=== PATIENT | female | born 1970 | race Caucasian/White ===

== ENCOUNTER → 2023-06-07 | Outpatient (CLI) | payer OTHER, SELFPAY ==
--- NOTE | 2023-06-07 12:20 | RAD_ITS ---
INDICATION: PAIN IN BOTH KNEES EXAMINATION/TECHNIQUE: X-RAY - LEFT XR Knee Complete 4 Views or More 4 VIEWS COMPARISON: None. FINDINGS: SOFT TISSUES: No soft tissue swelling or gas. Chondrocalcinosis. BONES/JOINTS: No acute fracture. Joint spaces anatomically aligned with moderate tricompartmental degenerative changes. No sclerotic or destructive changes observed. RAD/Knee 4 or More Views IMPRESSION: Chondrocalcinosis with degenerative changes. Electronically Signed: Kenyon Pittman MD at 0:38 EDT ,
--- NOTE | 2023-06-07 12:30 | RAD_ITS ---
STUDY: X-RAY - RIGHT KNEE REASON FOR EXAM: Female, 53 years old. PAIN IN BOTH KNEES TECHNIQUE: 4 view(s) of the knee. COMPARISON: None. FINDINGS: Normal visualized distal femur. Normal visualized proximal tibia and fibula. Normal proximal tibiofibular articulation. There is no demonstrated fracture. There is mild degenerative arthrosis of the medial femorotibial compartment. Normal lateral femorotibial compartment. There is mild degenerative arthrosis of the patellofemoral articulation. The soft tissue structures are unremarkable. RAD/Knee 4 or More Views IMPRESSION: Degenerative arthrosis. Electronically Signed: Lew Rodriguez MD at 23:49 EDT ,
== END | disposition home or self-care (01) ==
LOC: RAD 12:16
PROVIDERS: PCP Family Medicine; Visit Provider Family Medicine
DX: M25.561 Pain in right knee (principal); M25.562 Pain in left knee
CPT/HCPCS: 73564

== ENCOUNTER → 2023-12-13 | Outpatient (CLI) | payer OTHER, SELFPAY ==
--- OUTSIDE RECORDS SUMMARY | 2023-12-13 08:06 | XMS RPT_ITS | CCD ---
Author Name Unknown Address [address] [place] [address] Organization [facility] Care Team Providers Care Psychosocial Rehabilitation Counselor Name Role Phone Autumn Rosas Unavailable Unavailable Autumn Rosas Unavailable Unavailable Autumn Rosas Unavailable Unavailable Autumn Rosas Unavailable Unavailable Autumn Rosas Unavailable Unavailable Autumn Rosas Unavailable Unavailable ISAIAS TORRES Attending Unavailable AUTUMN ROSAS Primary Care Unavailable MOOKIE ARGUETA Attending Unavailable Autumn Rosas Primary Care Provider Jenaro Zimmerman Unavailable SYSTEM, PROVIDER NOT IN Attending Unavaila ble SYSTEM, PROVIDER NOT IN Referring Unavaila ble AUTUMN ROSAS Primary Care Unavailable SYSTEM, PROVIDER NOT IN Attending Unavaila ble SYSTEM, PROVIDER NOT IN Referring Unavaila ble AUTUMN ROSAS Primary Care Unavailable SYSTEM, PROVIDER NOT IN Attending Unavaila ble SYSTEM, PROVIDER NOT IN Referring Unavaila ble AUTUMN ROSAS Primary Care Unavailable SYSTEM, PROVIDER NOT IN Attending Unavaila ble SYSTEM, PROVIDER NOT IN Referring Unavaila ble AUTUMN ROSAS Primary Care Unavailable SYSTEM, PROVIDER NOT IN Attending Unavaila ble SYSTEM, PROVIDER NOT IN Referring Unavaila ble AUTUMN ROSAS Primary Care Unavailable Jl Mansi Unavailable Autumn Rosas Primary Care Provider Socorro IZQUIERDO, Shila Unavailable Unavailable MAMMOGRAPHY-CECY SELF-REQUESTED Attending Unavailable [facility] OTHER Referring Unavail able Socorro IZQUIERDO, Shila Unavailable Unavailable Autumn Rosas MD Primary Care Provider AUTUMN ROSAS Referring Unavailable MIKA ROY Attending Unavailable AUTUMN ROSAS Primary Care Unavailable AUTUMN ROSAS Referring Unavailable MIKA ROY Attending Unavailable AUTUMN ROSAS Primary Care Unavailable MIKA ROY Admitting Unavailable MIKA ROY Attending Unavailable MIKA ROY Referring Unavailable AUTUMN ROSAS Primary Care Unavailable MIKA ROY Attending Unavailable AUTUMN ROSAS Primary Care Unavailable AUTUMN ROSAS Referring Unavailable Ralph, Dr. Autumn Horner Attending Unavailjaclyn Rosas, Dr. Autumn Horner Primary Care Unavailjaclyn Quintanilla RN, Shila Unavailable Unavailable Autumn Rosas MD Primary Care Provider [facility] Other Unavailable [phone] SINDY CAPUTO, KRISTEN Hein Consulting Unavailable RALPH CAPUTO, [phone] AUTUMN Primary Care Unavailable DUSTIN MORENO Admitting Unavailable STINEMJINA, DUSTIN Kumar Attending Unavailable SINDY CAPUTO, KRISTEN Hein Consulting Unavailable TIFFANIE, DUSTIN Kumar Consulting Unavailable DUSTIN MORENO Consulting Unavailable RALPH CAPUTO, [phone] AUTUMN Consulting Unavailable RALPH CAPUTO, DR LEYVA Consulting Unavailable Autumn Rosas MD Primary Care Provider Erasmo CNPJenaro Unavailable Autumn Rosas MD Primary Care Provider SYLWIA SALINAS Admitting Unavailable SYLWIA SALINAS Referring Unavailable MEGAN HIDALGO Attending Unavailable AUTUMN ROSAS Primary Care Unavailable AUTUMN ROSAS Primary Care Unavailable SYLWIA SALINAS Admitting Unavailable SYLWIA SALINAS Referring Unavailable MEGAN HIDALGO Attending Unavailable AUTUMN ROSAS Primary Care Unavailable ARTURSYLWIA Admitting Unavailable SYLWIA SALINAS Referring Unavailable MEGAN HIDALGO Attending Unavailable Allergies Allergy Classification Reported Allergen(s) Allergy Type Date of Onset Reaction(s) Facility (1 source) acetaminophen / HYDROcodone; Translations: [Vicodin] Drug Allergy [facility] Repository (11 sources) Acetaminophen / HYDROcodone; Translations: [HYDROCODONE-ACET AMINOPHEN] Drug Allergy 0 Nausea and Vomiting [facility] (1 source) Codeine Drug Allergy 0 Nausea and Vomiting [facility] (5 sources) Latex; Translations: [LATEX] Propensity to adverse reactions to drug 2 Rash [facility] Medications Current Medications Medication Drug Class(es) Dates Sig (Normalized) Sig (Original) amLODIPine 10 mg oral tablet (11 sources) Dihydropyridine Calcium Channel Agnes take 1 tablet by mouth once daily amLODIPine (NORVASC) 10 MG tablet Take 1 (one) tablet (10 mg total) by mouth daily . 0 Active Completed/Discontinued Medications Medication Drug Class(es) Dates Sig (Normalized) Sig (Original) EPINEPHrine 0.01 mg/ml / lidocaine hydrochloride 10 mg/ml injectable solution (1 source) Antiarrhythmic, alpha-Adrenergic Agonist, beta-Adrenergic Agonist, Catecholamine, Amide Local Anesthetic Start: 11-10-2022 End: 11-10-2022 lidocaine-epinephr ine 1%-1:[id number] injection erythromycin 0.005 mg/mg ophthalmic ointment (1 source) Macrolide, Macrolide Antimicrobial Start: 04-05-2020 End: 04-25-2022 erythromycin ophthalmic ointment Use 1 application in both eyes four times daily. 0 04/05/2020 04/25/2022 Discontinued (Course of therapy completed) Problems Active Problems Problem Classification Problem Date Documented Da te Episodic/Chronic Blindness and vision defects (4 sources) Bilateral hyperopia of eyes; Translations: [Hypermetropia, bilateral] Onset: 04-08-2015 Episodic Genitourinary symptoms and ill-defined conditions (12 sources) Urinary incontinence; Translations: [Unspecified urinary incontinence] Onset: 06-11-2023 06-11-2023 Chronic Other and unspecified benign neoplasm (1 source) Benign neoplasm of skin of left upper eyelid; Translations: [Other benign neoplasm of skin of left upper eyelid, including canthus] Episodic Other and unspecified benign neoplasm (4 sources) Benign neoplasm of face; Translations: [Melanocytic nevi of unspecified part of face] Episodic Other and unspecified benign neoplasm (2 sources) Melanocytic nevi of unspecified part of face; Translations: [Melanocytic nevi of unspecified part of face] Onset: 11-10-2022 Episodic Other connective tissue disease (2 sources) Pain in right foot; Translations: [PAIN IN RIGHT FOOT] Onset: 05-31-2023 Episodic Other connective tissue disease (1 source) Enthesopathy, unspecified; Translations: [ENTHESOPATHY UNSPECIFIED] Onset: 06-04-2023 Episodic Other eye disorders (1 source) Bilateral vitreous floaters; Translations: [Other vitreous opacities, bilateral] Chronic Other lower respiratory disease (4 sources) Dyspnea, unspecified; Translations: [Dyspnea, unspecified] Onset: 01-19-2023 Episodic Other screening for suspected conditions (not mental disorders or infectious disease) (8 sources) Patient encounter status; Translations: [Encounter for screening mammogram for malignant neoplasm of breast] Onset: 05-26-2020 Episodic Other skin disorders (3 sources) Skin tag; Translations: [Other hypertrophic disorders of the skin] Episodic Other skin disorders (2 sources) Other hypertrophic disorders of the skin; Translations: [Other hypertrophic disorders of the skin] Onset: 11-10-2022 Episodic Past or Other Problems Problem Classification Problem Date Documented Da te Episodic/Chronic Mood disorders (6 sources) Mood disorders Onset: 01-18-2021 Resolved: 01-18-2021 01-18-2021 Results Test Name Value Interpretation Reference Range Facil ity Vital Signs Date Time Vital Sign Value Performing Clinician Faci lity 11-20-2022 11:46-0500 Body height 170.2 cm Mika Roy DO Work Phone: [employer] 11-20-2022 11:46-0500 Body temperature 98.4 [degF] Mika Roy DO Work Phone: [employer] 11-10-2022 13:06-0500 Diastolic blood pressure 69 mm[Hg] Mika Roy DO Work Phone: [employer] 11-10-2022 13:06-0500 Heart rate 79 /min Mika Statonac DO Work Phone: [employer] 11-10-2022 13:06-0500 Respiratory rate 19 /min Mika Roy DO Work Phone: [employer] [facility] 11-10-2022 13:06-0500 SaO2% (BldA) [Mass fraction] 99 % Mika Roy DO Work Phone: [employer] [facility] 11-10-2022 13:06-0500 Systolic blood pressure 142 mm[Hg] Mika Bodjanac DO Work Phone: [employer] 11-10-2022 12:08-0500 Body height 170.2 cm Mika Bodjanac DO Work Phone: [employer] 11-10-2022 12:08-0500 Body mass index (BMI) [Ratio] 43.85 kg/m2 Mika Bodjanac DO Work Phone: [employer] 11-10-2022 12:08-0500 Body temperature 99.9 [degF] Mika Bodjanac DO Work Phone: [employer] 11-10-2022 12:08-0500 Body weight 127.01 kg Mika Bodjanac DO Work Phone: [employer] 11-06-2022 15:09-0500 Body height 170.2 cm Mika Linderjanac DO Work Phone: [employer] 11-06-2022 15:09-0500 Body mass index (BMI) [Ratio] 44.95 kg/m2 Mika Bodjanac DO Work Phone: [employer] 11-06-2022 15:09-0500 Body temperature 97 [degF] Mika Bodjanac DO Work Phone: [employer] 11-06-2022 15:09-0500 Body weight 130.18 kg Mika Bodjanac DO Work Phone: [employer] 10-02-2022 09:46-0500 Body height 170.2 cm Mika Bodjanac DO Work Phone: [employer] 10-02-2022 09:46-0500 Body mass index (BMI) [Ratio] 44.95 kg/m2 Mika Bodjanac DO Work Phone: [employer] 10-02-2022 09:46-0500 Body temperature 98.71 [degF] Mika Bodjanac DO Work Phone: [facility] [employer] [facility] 10-02-2022 09:46-0500 Body weight 130.18 kg Mika Roy DO Work Phone: [facility] Encounters Encounter Date Encounter Type Care Provider Facility Start: 07-17-2023 End: 07-17-2023 ambulatory Sylwia Salinas CNP Work Phone: [facility] Procedures Date Procedure Procedure Detail Performing Clinician Start: 05-03-2023 Mammography Ayesha bloom PT Start: 05-02-2022 Screening mammograph y bi 2-view breast inc cad Self-Requested MammographyCandelario Work Phone: Plan of Treatment Date Care Activity Detail Author Start: 04-02-2029 Tetanus vaccination [facility] Start: 05-03-2024 Screening for malign ant neoplasm of breast Mammogram [facility] Start: 07-13-2023 End: 07-13-2023 ambulatory 07/13/2023 4:00 PM EDT [facility] [address] [place] [id number] Sylwia Salinas, [employer] [address] [place] [address] Ayesha Hidalgo, PT [facility] Start: 06-29-2023 COVID-19 Vaccine ( season) COVID-19 Vaccine ( season) [facility] Start: 06-29-2023 Influenza vaccination [facility] Start: 06-25-2023 End: 06-25-2023 ambulatory 06/25/2023 4:45 PM EDT [facility] [address] [place] [phone] Sylwia Salinas, [employer] [address] [place] [address] Ayesha Hidalgo, PT [facility] Start: 06-18-2023 End: 06-18-2023 ambulatory 06/18/2023 9:[address] [facility] [place] [address] Sylwia Salinas, [employer] [address] [place] [address] Ayesha Hidalgo, ALLISON Discharge Disposition: Home [facility] Start: 05-02-2023 End: 05-02-2024 MG Breast - bilateral Screening MAMMO SCREENING WITH ISAAC BILATERAL Imaging Routine Visit for screening mammogram Expected: 05/02/2023, Expires: 05/02/2024 [facility] Work Phone: Immunizations Immunization Date Immunization Notes Care Provider [facility] 09-18-2022 influenza virus vaccine, unspecified formulation Autumn Rosas MD Work Phone: [facility] 01-06-2022 zoster vaccine, unspecified formulation Mika Roy DO Work Phone: [facility] 10-07-2021 influenza virus vaccine, unspecified formulation Self-Requested MammographyCandelario Work Phone: [facility] Payers Date Payer Category Payer Unknown [id number] 2001 Unknown 1970 Unknown [id number] 2.16.84 [id number] 1970 Unknown [id number] 2.16.84 0.1.781423.3.579.2.71 1970 Unknown [id number] 2.16. [id number] 1970 Unknown [id number] 2.16. 840.1.780410.3.579.2.903 1970 Unknown [id number] 2.16.8 40.1.065073.3.579.2.900 1970 Unknown [id number] 2.16.8 40.1.404164.3.579.2.900 1969 Unknown [id number] 2.16.8 40.1.242970.3.579.2.900 1970 Unknown [id number] 2.16.8 40.1.172803.3.579.2.900 1969 Unknown [id number] 2.16.8 40.1.461433.3.579.2.900 1969 Unknown [id number] 2.16. 840.1.887641.3.579.2.594 1970 Unknown [id number] 2. 840.1.699135.3.579.2.594 1970 Unknown [id number] 2.16.8 40.1.407519.3.579.2.983 1970 Unknown [id number] 2.16.8 40.1.944519.3.579.2.983 1970 Unknown [id number] 2.16.8 40.1.554327.3.579.2.983 1970 Unknown [id number] 2.16.8 40.1.978535.3.579.2.983 1970 Unknown [id number] 2.16.8 40.1.951717.3.579.2.1069 1969 Unknown [id number] 2.16.8 40.1.623966.3.579.2.419 1969 Unknown [id number] 2.16 840.1.436538.3.579.2.903 1970 Unknown [id number] 2.16 840.1.658900.3.579.2.903 1970 Unknown [id number] 2.16 [id number] 1959 Unknown [id number] Social History Date Type Detail [facility] Start: 1970 Sex Assigned At Not on file [facility] Start: 04-08-2015 End: 02-08-2022 Tobacco smoking status NHIS Never smoked tobacco [facility] Start: 04-08-2015 End: 02-08-2022 Tobacco use and exposure Smokeless tobacco non-user [facility] Start: 04-25-2022 Alcohol intake Ex-drinker (finding) [facility] Start: 04-15-2022 End: 04-25-2022 Exposure to SARS-CoV-2 (event) Not sure [facility] Start: 05-02-2022 End: 05-03-2023 Alcohol intake Current drinker of alcohol (finding) [facility] Start: 07-02-2020 End: 01-18-2021 History SDOH Alcohol Frequency 2 [facility] Start: 07-02-2020 History SDOH Alcohol Comment Rare use [facility] Start: 01-18-2021 History SDOH Financial 5 [facility] Start: 01-18-2021 History SDOH Food Worry 1 [facility] Start: 07-02-2020 End: 10-18-2022 History of Social function [facility] Start: 07-02-2020 End: 10-18-2022 Alcohol Use Disorder Identification Test - Consumption [AUDIT-C] [facility] How often to you hav e a drink containing alcohol? Monthly or less [facility] Average Number of Drinks Not on file [facility] (I/We) worried nola er (my/our) food would run out before (I/we) got money to buy more. Never true [facility] Start: 04-24-2022 Gender identity Identifies as female gender (finding) [facility] Start: 04-24-2022 Sexual orientation Heterosexual (finding) [facility] Start: 10-18-2022 Alcohol intake Lifetime non-drinker (finding) [facility] Clinical Notes 04-25-2022 to 07-17-2023 Ayesha Hidalgo, PT - 07/17/2023 7:45 AM Ayesha White, PT - 06/25/2023 4:45 PM Ayesha White, PT - 06/18/2023 4:00 PM Ayesha White, PT - 06/11/2023 1:45 PM EDTDischarge Instructions Note Date & Type Note Facility 07-17-2023 History of Present illness Narrative Discharged from PT. documented in this encounter [facility] 06-25-2023 History of Present illness Narrative [facility] DAILY TREATMENT NOTE Today's Date 06/25/2023 Patient Name: Bernadette Barney Date of : 1970 Current Visit #: 3 Authorized Visits: 5 Case Name: SHERIE History: Pre-Treatment Pain Scale: 0 Symptoms: gradually improved Functional Diagnosis: 1. SHERIE (stress urinary incontinence, female) Clinical Information: Subjective: Patient reports she has had a lot of stress in her life lately so thinks that is effecting her bladder. Objective Patient progressed with standing hip exercises holding pelvic brace. She has increased her pelvic floor strength to 2+/5, but endurance is at 6 seconds. Encouraged patient to be consistent with exercise at home. Treatments: Physical Therapy Exercise Log - 06/25/23 9660 OTHER Notes SHERIE Therapeutic Exercise (57104) Intervention supine pelvic brace 2 sec and 5 sec 10 times Parameters Sitting and standing pelvic brace 5 sec 10 times Intervention Sitting hip add iso and abd BTB with pelvic brace 10 times Parameters Standing hip abd, ext and squats with pelvic brace 10 times each Additional Exercises Add more exercises? Yes Modalities Modalities Electrical Stim - Unattended Parameters Vaginal ES 15 mins PT Treatment Times Therex Total Time 30 Modalities Total Time 15 Direct Treatment Time 45 Total Treatment Time 45 Goals: Physical Therapy Ortho Goals: The patient will demonstrate good understanding of pelvic floor strengthening to reduce leakage. The patient will increase pelvic floor strength to 4+/5 within 2 months. The patient will reduce leakage by 80% within 2 months. The patient will be able to improve bladder habits to voiding every 2 hours without leakage. Patient Education: Quality of movement and Written HEP with patient demonstrated understanding. Post-Treatment Pain Scale: 0 Assessment: Patient had an expected response to treatment. Skilled Intervention demonstrated by modifications of treatment per exercise log including increased load and safety interventions per exercise log. Progress towards goals as expected. Plan for Next Visit: Treatment Visit with focus on pelvic floor strengthening. Ayesha Hidalgo PT State License, [id number] documented in this encounter [facility] 06-18-2023 History of Present illness Narrative [facility] DAILY TREATMENT NOTE Today's Date 06/18/2023 Patient Name: Bernadette Barney Date of : 1970 Current Visit #: 2 Authorized Visits: 5 Case Name: SHERIE History: Pre-Treatment Pain Scale: 0 Symptoms: gradually improved Functional Diagnosis: 1. SHERIE (stress urinary incontinence, female) Clinical Information: Subjective: Patient reports she is getting her exercises done at least once a day. She has noticed a decrease in her leakage already. Objective Patient progressed with hip accessory exercises with good understanding. Increase in pelvic floor strength to 3-/5 and endurance at 11 seconds. Good porgress with therapy. Treatments: Physical Therapy Exercise Log - 06/18/23 1604 OTHER Notes SHERIE Therapeutic Exercise (54681) Intervention supine pelvic brace 2 sec and 5 sec 10 times Parameters Sitting and standing pelvic brace 5 sec 10 times Intervention Sitting hip add iso and abd BTB with pelvic brace 10 times Additional Exercises Add more exercises? Yes Modalities Modalities Electrical Stim - Unattended Parameters Vaginal ES 15 mins PT Treatment Times Therex Total Time 30 Modalities Total Time 15 Direct Treatment Time 45 Total Treatment Time 45 Goals: Physical Therapy Ortho Goals: The patient will demonstrate good understanding of pelvic floor strengthening to reduce leakage. The patient will increase pelvic floor strength to 4+/5 within 2 months. The patient will reduce leakage by 80% within 2 months. The patient will be able to improve bladder habits to voiding every 2 hours without leakage. Patient Education: Quality of movement and Written HEP with patient demonstrated understanding. Post-Treatment Pain Scale: 0 Assessment: Patient had an expected response to treatment. Skilled Intervention demonstrated by modifications of treatment per exercise log including increased load and safety interventions per exercise log. Progress towards goals as expected. Plan for Next Visit: Treatment Visit with focus on pelvic floor strengthening. Ayesha Hidalgo PT State License, [id number] documented in this encounter [facility] 06-11-2023 History of Present illness Narrative [facility] Evaluation Today's Date 06/11/2023 Patient Name: Bernadette Barney Date of : 1970 Case Name: SHERIE Functional Diagnosis: 1. Urinary incontinence, unspecified type 2. SHERIE (stress urinary incontinence, female) Clinical Information: Subjective All subjective data collected as part of a multidisciplinary team: No Referring Diagnosis: SHERIE Patient accompanied by: unaccompanied History of Present Illness Date of Onset: 06/11/2018 Subjective History: Patient reports she sometimes has problems with incontinence. She has had a rough year and a half with her health problems. 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 She also notices she doesn't feel like she is able to empty her bladder after going to the bathroom. She gets strong urge to go to the bathroom at times. She gets up at least once a night to go to the bathroom. No pain with intercourse. Previous Treatment for this condition: No Hand dominance: right Overall rating of health: Good Pain Scale Pain location: No pain reported Reason for not responding: pain is not reason for seeking treatment Aggravating factors: coughing, sneezing, urge Personal Goals: Reduce leakage Home Environment Current Home Environment: unchanged Anticipated Home Environment at Discharge: unchanged Red Flags: None Comments: Barriers to Care: None Fall risk screening Fallen 2 or more times in the last 12 months: No Injured as a result of a fall in the last 12 months: No Pelvic Floor Surgical History: Female Organs (bladder suspension 17 years ago) Vaginal Deliveries: 2 Pelvic Floor Exam Informed consent for Internal exam: Verbal Fractionating Still Operator present: No Reported History of Physical Abuse: No External Exam Pelvic Clock exam Palpation Tenderness: 0/10 Scar tenderness: 0/10 Prolapse Position tested: supine Location: Bladder Hymenal Line: At Feeling of Falling Out or Pelvic Heaviness/Pressure: No Occurs: With Standing Internal Pelvic Floor Exam Area: vaginal Pelvic floor strength: 2- Hold time: 3 seconds Reps: 4 Quick Contractions: 4 Ability to relax: Yes Treatments: Physical Therapy Exercise Log - 06/11/23 1400 OTHER Notes SHERIE Therapeutic Exercise (90094) Intervention supine pelvic brace 2 sec and 5 sec 10 times Parameters Sitting and standing pelvic brace 5 sec 10 times Additional Exercises Add more exercises? Yes Modalities Modalities Electrical Stim - Unattended Parameters Vaginal ES 15 mins PT Treatment Times Therex Total Time 15 Direct Treatment Time 15 Total Treatment Time 45 Treatment Plan: Frequency of Visits: once per week Duration: 4 weeks Interventions: Therapeutic Exercise (04221) and Electrical Stimulation - Unattended (42713) Rehab Potential: good Goals: Physical Therapy Ortho Goals: The patient will demonstrate good understanding of pelvic floor strengthening to reduce leakage. The patient will increase pelvic floor strength to 4+/5 within 2 months. The patient will reduce leakage by 80% within 2 months. The patient will be able to improve bladder habits to voiding every 2 hours without leakage. Patient Education provided: Patient given written home program. Clinical Impression: Pt is a 53 y.o. female who presents to PT services with c/o SHERIE. Upon assessment, pt has been found with the following impairments: decreased hip ROM, decreased pelvic floor strength, and frequent urination. The documented impairments result in the following functional limitations: ADLs/IADLs, functional mobility, walking and quality of life. The pt would benefit from skilled PT services focused on the above listed impairments and limitations in order to safely progress pt to their desired level of function. Pt to be discharged from OP PT services if/when goals are met, if they fail to make progress with conservative management in PT, if their level of progress plateaus, or if they do not maintain compliance with attendance or HEP. At this time, it is my clinical judgment that services are medically necessary. Ayesha Hidalgo, PT State License, [id number] documented in this encounter [facility] 06-01-2023 Note PROCEDURE: ANKLE RIG HT COMPLETE, 05/31/2023 5:18 PM EDT CLINICAL INDICATIONS: Right ankle pain, right foot pain, symptoms for 3 months. COMPARISON: None TECHNIQUE: Right ankle 3 views FINDINGS: Dorsal and plantar calcaneal enthesopathy is seen. The bones are normal in density. Fracture, malalignment, or bone destruction is not evident. Ankle mortise intact. Os peroneum seen. Generalized soft tissue swelling seen. No ankle effusion. IMPRESSION: 1. Calcaneal enthesopathy. 2. No acute pathology identified. 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 Pt declined documented in this encounter [facility] 11-20-2022 History of Present illness Narrative Chief Complaint Chief Complaint Patient presents with Post Op Visit Post op Vitals Temp 98.4 F (36.9 C) (Temporal) Ht 1.702 m (5' 7 ) BMI 43.85 kg/m Smoking Status Never Body mass index is 43.85 kg/m . ROS General Plastics Review of Systems: Do you have any of the following: Chills, Fatigue, Fever or Night Sweats: no. Ear pain or eye discharge: no. Hearing loss or visual changes: no. Sore throat or chronic cough: no. Shortness of breath: no. Chest pain, swelling, or heart palpitations: no. Abdominal pain: no. Constipation or diarrhea: no. Heartburn or Nausea: no. Rash or skin problems: no. Breast: lumps, tenderness, discharge: no. Dizziness or numbness: no. Headaches or Migraines: no. Seizures: no. Joint pain, joint swelling or muscle weakness: no. Bruise or bleed easily: no. Any swollen lymph nodes: no. Numbness, weakness, tingling, shooting pain ; no. Fever blisters/cold sores: no. Here for post op s/p 11/10/2022 excision nevus on right upper lip and right flank. Denies pain to sites at present. The surgical sites on her right upper lip and right flank are healed. The sutures are dissolvable. Pathology report discussed: Diagnosis: A.Right upper lip lesion, Excision: -Nevus B.Right flank lesion, Excision: -Nevus After one more week, she may begin to apply a scar fading compound to the surgical sites. documented in this [facility] 11-10-2022 Note Formatting of this n ote might be different from the original. EXCISION OF SKIN LESION (INTERMEDIATE CLOSURE) - PLASTICS PROCEDURE PERFORMED BY: Mika Roy DO PROCEDURE DATE: 11/10/2022 LOCATION: Right upper lip The patient is counseled regarding the above procedure including risks, alternatives, potential complications and benefits, and is agreeable to proceed. Witnessed informed consent is obtained. The lesion to be excised is located just above the right upper lip vermilion border. This lesion is marked with a marking pen and prepared with Betadineophthalmic prep. The site is then injected with 1% lidocaine with 1:100,000 epinepherine for a total of 3 cc. Using a 15 blade scalpel the area is then resected through the skin and subcutaneous tissues 0.8 cm x 1.2 cm in size. The lesion is then sent in Formalin for pathologic specimen. Hemostasis is achieved; no cautery is needed. A layered closure of the deep and subcutaneous layers is performed with interrupted suture of 5-0 Vicryl. Skin closure is performed with 5-0 Plain Gut simple interrupted sutures. 1/4 steri-strips applied. LOCATION: Right flank The patient is counseled regarding the above procedure including risks, alternatives, potential complications and benefits, and is agreeable to proceed. Witnessed informed consent is obtained. The lesion to be excised is marked with a marking pen and prepared with Betadine ophthalmic prep. The site is then injected with 1% lidocaine with 1:100,000 epinepherine for a total of 3 cc. Using a 15 blade scalpel the area is then resected through the skin and subcutaneous tissues 0.7 cm x 1.3 cm in size. The lesion is then sent in Formalin for pathologic specimen. Hemostasis is achieved; the wound is cauterized with Bovie cautery as needed. A layered closure of the deep and subcutaneous layers is performed with interrupted suture of 5-0 Vicryl. Skin closure is performed with 5-0 Plain Gut simple interrupted sutures. 1/4 steri-strips applied. The patient tolerated the procedure well without complication. The patient is advised to call for severe pain, redness, bleeding, or purulent discharge. Pain may be treated with Tylenol or Ibuprofen as needed. [facility] 11-10-2022 Miscellaneous Notes EXCISION OF SKIN LESION (INTERMEDIATE CLOSURE) - PLASTICS PROCEDURE PERFORMED BY: Mika Roy DO PROCEDURE DATE: 11/10/2022 LOCATION: Right upper lip The patient is counseled regarding the above procedure including risks, alternatives, potential complications and benefits, and is agreeable to proceed. Witnessed informed consent is obtained. The lesion to be excised is located just above the right upper lip vermilion border. This lesion is marked with a marking pen and prepared with Betadineophthalmic prep. The site is then injected with 1% lidocaine with 1:100,000 epinepherine for a total of 3 cc. Using a 15 blade scalpel the area is then resected through the skin and subcutaneous tissues 0.8 cm x 1.2 cm in size. The lesion is then sent in Formalin for pathologic specimen. Hemostasis is achieved; no cautery is needed. A layered closure of the deep and subcutaneous layers is performed with interrupted suture of 5-0 Vicryl. Skin closure is performed with 5-0 Plain Gut simple interrupted sutures. 1/4 steri-strips applied. LOCATION: Right flank The patient is counseled regarding the above procedure including risks, alternatives, potential complications and benefits, and is agreeable to proceed. Witnessed informed consent is obtained. The lesion to be excised is marked with a marking pen and prepared with Betadine ophthalmic prep. The site is then injected with 1% lidocaine with 1:100,000 epinepherine for a total of 3 cc. Using a 15 blade scalpel the area is then resected through the skin and subcutaneous tissues 0.7 cm x 1.3 cm in size. The lesion is then sent in Formalin for pathologic specimen. Hemostasis is achieved; the wound is cauterized with Bovie cautery as needed. A layered closure of the deep and subcutaneous layers is performed with interrupted suture of 5-0 Vicryl. Skin closure is performed with 5-0 Plain Gut simple interrupted sutures. 1/4 steri-strips applied. The patient tolerated the procedure well without complication. The patient is advised to call for severe pain, redness, bleeding, or purulent discharge. Pain may be treated with Tylenol or Ibuprofen as needed. POST OPERATIVE/PROCEDURE NOTE Bernadette Barney ([id number]) SURGEON Surgeon(s) and Role: * Mika Roy DO - Primary NURSE PARALEGAL None ANESTHESIOLOGIST No anesthesia staff entered. SURGICAL STAFF Cryogenics Engineer: Hannah Roque RN; Farheen Horton RN Regional Program Manager: Linn Hickey PROCEDURE PERFORMED Procedure(s) (LRB): EXCISION LESIONS Above right upper lip (Right) REPAIR WOUND INTERMEDIATE (Right) EXCISION LESION SKIN TRUNK - Right flank (Right) REPAIR WOUND INTERMEDIATE AXILLAE TRUNK (Right) PRIMARY CLOSURE Yes ANESTHESIA (type of) Local ESTIMATED BLOOD LOSS Minimal DRAINS None BLOOD PRODUCTS None FLUIDS No intake or output data in the 24 hours ending 11/10/22 1255 PRE OPERATIVE DIAGNOSIS Multiple benign nevi of face [D22.30] Fibroepithelial polyp [L91.8] POST OPERATIVE DIAGNOSIS Post-Op Diagnosis Codes: * Multiple benign nevi of face [D22.30] * Fibroepithelial polyp [L91.8] FINDINGS No significant abnormalities CONDITION OF PATIENT Stable COMPLICATIONS None GRAFTS AND/OR IMPLANTS See OR Nursing Documentation SPECIMENS Sent to pathology ID Type Source Tests Collected by Time Destination A : A) Right Upper Lip lesion Permanent TISSUE SURGICAL PATHOLOGY REQUEST Mika Roy DO 11/10/2022 1243 B : B) Right Flank Permanent TISSUE SURGICAL PATHOLOGY REQUEST Mika Roy DO 11/10/2022 1249 Mika Roy DO November 10, 2022 12:55 PM documented in this encounter [facility] 11-10-2022 Hospital Discharge instructions Mika Roy DO - 11/10/2022 12:57 PM EST May shower. Maintain steri-strips and keep them as clean and dry as possible. Tylenol as needed for pain. Sleep on clean but old towels, as some seepage, which is normal, may occur. documented in this encounter [facility] 11-10-2022 Note Formatting of this n ote is different from the original. POST OPERATIVE/PROCEDURE NOTE Bernadette Barney ([id number]) SURGEON Surgeon(s) and Role: * Mika Roy DO - Primary NURSE PARALEGAL None ANESTHESIOLOGIST No anesthesia staff entered. SURGICAL STAFF Cryogenics Engineer: Hannah Roque RN; Farheen Horton RN Regional Program Manager: Linn Hickey PROCEDURE PERFORMED Procedure(s) (LRB): EXCISION LESIONS Above right upper lip (Right) REPAIR WOUND INTERMEDIATE (Right) EXCISION LESION SKIN TRUNK - Right flank (Right) REPAIR WOUND INTERMEDIATE AXILLAE TRUNK (Right) PRIMARY CLOSURE Yes ANESTHESIA (type of) Local ESTIMATED BLOOD LOSS Minimal DRAINS None BLOOD PRODUCTS None FLUIDS No intake or output data in the 24 hours ending 11/10/22 1255 PRE OPERATIVE DIAGNOSIS Multiple benign nevi of face [D22.30] Fibroepithelial polyp [L91.8] POST OPERATIVE DIAGNOSIS Post-Op Diagnosis Codes: * Multiple benign nevi of face [D22.30] * Fibroepithelial polyp [L91.8] FINDINGS No significant abnormalities CONDITION OF PATIENT Stable COMPLICATIONS None GRAFTS AND/OR IMPLANTS See OR Nursing Documentation SPECIMENS Sent to pathology ID Type Source Tests Collected by Time Destination A : A) Right Upper Lip lesion Permanent TISSUE SURGICAL PATHOLOGY REQUEST Mika Roy DO 11/10/2022 1243 B : B) Right Flank Permanent TISSUE SURGICAL PATHOLOGY REQUEST Mika Roy DO 11/10/2022 1249 Mika Roy DO November 10, 2022 12:55 PM [facility] 11-10-2022 Nurse Surgical operation note Or temp 67.2F, humidity 37% [facility] 11-10-2022 Nurse Note Or temp 67.2F, humidity 37% documented in this encounter [facility] 11-10-2022 Attending History and physical note I have examined the patient and reviewed the previous H&P completed on date 11/06/2022 and there are no changes. Mika Roy DO, 11/10/2022, 12:12 PM. Source Note - Mika Roy DO - 11/06/2022 3:00 PM EST Plastic Surgery H & P HPI: Ms. Barney is a 52 y.o. female. Documents updated to proceed with excision of a lesion above the right side of her lip and on her right flank. Family History Problem Relation Age of Onset Hypertension Mother Coronary Artery Disease Mother Other - Specify Mother incontinentia pigmenti Heart Disease - Other Father GI Disease Father hiatal hernia Anemia Father Heart Disease - Other Sister Heart Disease - Other Brother Diabetes Maternal Grandmother Other - Specify Daughter incontinentia pigmenti Breast Cancer Neg Hx Ovarian Cancer Neg Hx Uterine Cancer Neg Hx Social History Socioeconomic History Marital status: Tobacco Use Smoking status: Never Smokeless tobacco: Never Vaping Use Vaping Use: Never used Substance and Sexual Activity Alcohol use: Yes Comment: Rare use Drug use: Never Sexual activity: Yes 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 Last PAP: 05/2020 Para: 2 Age at of first child: 31 Age of menarche: 10 Age of menopause: n/a Patient denies hormonal therapy at this time. BREAST (GENERAL): Patient admits to self-breast exams and does them monthly. Date of patient's first mammogram: Date of most recent mammogram: 05/26/2020 Bra/Cup Size: 44D BREAST(HISTORICAL BIOPSY/THERAPY/TREATMENT) Patient denies previous breast biopsy(s). Patient denies being told they personally have breast cancer or a breast malignancy. Patient denies chemotherapy, hormone therapy or radiation therapy during the last month. Allergies as of 11/06/2022 - Reviewed 11/06/2022 Allergen Reaction Noted Vicodin [hydrocodone-acetaminophen] Nausea and Vomiting 07/02/2020 Current Outpatient Medications Medication Sig Dispense Refill amLODIPine 5 MG tablet Take 2 tablets by mouth daily. levothyroxine 125 MCG tablet Take 175 mcg by mouth daily. Per patient now taking 175 mcg once daily Multiple Vitamins-Minerals (WOMENS MULTIVITAMIN PO) Take by mouth daily. PARoxetine 20 MG tablet No current facility-administered medications for this visit. Past Medical History: Diagnosis Date Abnormal finding on breast imaging 05/26/2020 to right breast Essential hypertension, benign Hypothyroidism Past Surgical History: Procedure Laterality Date CORE BIOPSY OF THE BREAST Right 07/02/2020 Benign breast parenchyma with stromal fibrosis, usual type ductal hyperplasia, apocrine metaplasia, and cyst formation BLADDER SUSPENSION 2007 CHOLECYSTECTOMY 2004 OTHER SURGICAL per patient - excision benign lesion right lateral canthus TONSILLECTOMY Review of Systems: Chief Complaint Chief Complaint Patient presents with Pre-op Exam Pre-op Vitals Temp 97 F (36.1 C) (Temporal) Ht 1.702 m (5' 7 ) Wt 130.2 kg (287 lb) BMI 44.95 kg/m Smoking Status Never Body mass index is 44.95 kg/m . [facility] General Plastics Review of Systems: Do you have any of the following: Chills, Fatigue, Fever or Night Sweats: no. Ear pain or eye discharge: no. Hearing loss or visual changes: no. Sore throat or chronic cough: no. Shortness of breath: no. Chest pain, swelling, or heart palpitations: no. Abdominal pain: no. Constipation or diarrhea: no. Heartburn or Nausea: no. Rash or skin problems: no. Breast: lumps, tenderness, discharge: no. Dizziness or numbness: no. Headaches or Migraines: no. Seizures: no. Joint pain, joint swelling or muscle weakness: no. Bruise or bleed easily: no. Any swollen lymph nodes: no. Numbness, weakness, tingling, shooting pain ; no. Fever blisters/cold sores: no. Here for preop for scheduled 11/10/2022 excision of lesion of face and right flank/trunk. Physical Examination height is 1.702 m (5' 7 ) and weight is 130.2 kg (287 lb). Her temporal temperature is 97 F (36.1 C). Estimated body mass index is 44.95 kg/m as calculated from the following: Height as of this encounter: 1.702 m (5' 7 ). Weight as of this encounter: 130.2 kg (287 lb). General: NAD, well appearing HEENT: NC/AT, CN 2-12 grossly intact, V1-V3 grossly intact, no LAD Chest: RRR, CTAB Abdomen: Soft/NT/ND, no palpable masses/hernias, no organomegaly Extremities: Neurovascularly intact This procedure has been fully reviewed with the patient and written informed consent has been obtained. [facility] Work Phone: 11-10-2022 History and physical note I have examined the patient and reviewed the previous H&P completed on date 11/06/2022 and there are no changes. Mika Roy DO, 11/10/2022, 12:12 PM. Source Note - Mika Roy DO - 11/06/2022 3:00 PM EST Plastic Surgery H & P HPI: Ms. Barney is a 52 y.o. female. Documents updated to proceed with excision of a lesion above the right side of her lip and on her right flank. Family History Problem Relation Age of Onset Hypertension Mother Coronary Artery Disease Mother Other - Specify Mother incontinentia pigmenti Heart Disease - Other Father GI Disease Father hiatal hernia Anemia Father Heart Disease - Other Sister Heart Disease - Other Brother Diabetes Maternal Grandmother Other - Specify Daughter incontinentia pigmenti Breast Cancer Neg Hx Ovarian Cancer Neg Hx Uterine Cancer Neg Hx Social History Socioeconomic History Marital status: Tobacco Use Smoking status: Never Smokeless tobacco: Never Vaping Use Vaping Use: Never used Substance and Sexual Activity Alcohol use: Yes Comment: Rare use Drug use: Never Sexual activity: Yes 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 Last PAP: 05/2020 Para: 2 Age at of first child: 31 Age of menarche: 10 Age of menopause: n/a Patient denies hormonal therapy at this time. BREAST (GENERAL): Patient admits to self-breast exams and does them monthly. Date of patient's first mammogram: Date of most recent mammogram: 05/26/2020 Bra/Cup Size: 44D BREAST(HISTORICAL BIOPSY/THERAPY/TREATMENT) Patient denies previous breast biopsy(s). Patient denies being told they personally have breast cancer or a breast malignancy. Patient denies chemotherapy, hormone therapy or radiation therapy during the last month. Allergies as of 11/06/2022 - Reviewed 11/06/2022 Allergen Reaction Noted Vicodin [hydrocodone-acetaminophen] Nausea and Vomiting 07/02/2020 Current Outpatient Medications Medication Sig Dispense Refill amLODIPine 5 MG tablet Take 2 tablets by mouth daily. levothyroxine 125 MCG tablet Take 175 mcg by mouth daily. Per patient now taking 175 mcg once daily Multiple Vitamins-Minerals (WOMENS MULTIVITAMIN PO) Take by mouth daily. PARoxetine 20 MG tablet No current facility-administered medications for this visit. Past Medical History: Diagnosis Date Abnormal finding on breast imaging 05/26/2020 to right breast Essential hypertension, benign Hypothyroidism Past Surgical History: Procedure Laterality Date CORE BIOPSY OF THE BREAST Right 07/02/2020 Benign breast parenchyma with stromal fibrosis, usual type ductal hyperplasia, apocrine metaplasia, and cyst formation BLADDER SUSPENSION 2007 CHOLECYSTECTOMY 2004 OTHER SURGICAL per patient - excision benign lesion right lateral canthus TONSILLECTOMY Review of Systems: Chief Complaint Chief Complaint Patient presents with Pre-op Exam Pre-op Vitals Temp 97 F (36.1 C) (Temporal) Ht 1.702 m (5' 7 ) Wt 130.2 kg (287 lb) BMI 44.95 kg/m Smoking Status Never Body mass index is 44.95 kg/m . ROS General Plastics Review of Systems: Do you have any of the following: Chills, Fatigue, Fever or Night Sweats: no. Ear pain or eye discharge: no. Hearing loss or visual changes: no. Sore throat or chronic cough: no. Shortness of breath: no. Chest pain, swelling, or heart palpitations: no. Abdominal pain: no. Constipation or diarrhea: no. Heartburn or Nausea: no. Rash or skin problems: no. Breast: lumps, tenderness, discharge: no. Dizziness or numbness: no. Headaches or Migraines: no. Seizures: no. Joint pain, joint swelling or muscle weakness: no. Bruise or bleed easily: no. Any swollen lymph nodes: no. Numbness, weakness, tingling, shooting pain ; no. Fever blisters/cold sores: no. Here for preop for scheduled 11/10/2022 excision of lesion of face and right flank/trunk. Physical Examination height is 1.702 m (5' 7 ) and weight is 130.2 kg (287 lb). Her temporal temperature is 97 F (36.1 C). Estimated body mass index is 44.95 kg/m as calculated from the following: Height as of this encounter: 1.702 m (5' 7 ). Weight as of this encounter: 130.2 kg (287 lb). General: NAD, well appearing HEENT: NC/AT, CN 2-12 grossly intact, V1-V3 grossly intact, no LAD Chest: RRR, CTAB Abdomen: Soft/NT/ND, no palpable masses/hernias, no organomegaly Extremities: Neurovascularly intact This procedure has been fully reviewed with the patient and written informed consent has been obtained. documented in this encounter [facility] 11-06-2022 History and physical note Plastic Surgery H & P HPI: Ms. Barney is a 52 y.o. female. Documents updated to proceed with excision of a lesion above the right side of her lip and on her right flank. Family History Problem Relation Age of Onset Hypertension Mother Coronary Artery Disease Mother Other - Specify Mother incontinentia pigmenti Heart Disease - Other Father GI Disease Father hiatal hernia Anemia Father Heart Disease - Other Sister Heart Disease - Other Brother Diabetes Maternal Grandmother Other - Specify Daughter incontinentia pigmenti Breast Cancer Neg Hx Ovarian Cancer Neg Hx Uterine Cancer Neg Hx Social History Socioeconomic History Marital status: Tobacco Use Smoking status: Never Smokeless tobacco: Never Vaping Use Vaping Use: Never used Substance and Sexual Activity Alcohol use: Yes Comment: Rare use Drug use: Never Sexual activity: Yes 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 Last PAP: 05/2020 Para: 2 Age at of first child: 31 Age of menarche: 10 Age of menopause: n/a Patient denies hormonal therapy at this time. BREAST (GENERAL): Patient admits to self-breast exams and does them monthly. Date of patient's first mammogram: Date of most recent mammogram: 05/26/2020 Bra/Cup Size: 44D BREAST(HISTORICAL BIOPSY/THERAPY/TREATMENT) Patient denies previous breast biopsy(s). Patient denies being told they personally have breast cancer or a breast malignancy. Patient denies chemotherapy, hormone therapy or radiation therapy during the last month. Allergies as of 11/06/2022 - Reviewed 11/06/2022 Allergen Reaction Noted Vicodin [hydrocodone-acetaminophen] Nausea and Vomiting 07/02/2020 Current Outpatient Medications Medication Sig Dispense Refill amLODIPine 5 MG tablet Take 2 tablets by mouth daily. levothyroxine 125 MCG tablet Take 175 mcg by mouth daily. Per patient now taking 175 mcg once daily Multiple Vitamins-Minerals (WOMENS MULTIVITAMIN PO) Take by mouth daily. PARoxetine 20 MG tablet No current facility-administered medications for this visit. Past Medical History: Diagnosis Date Abnormal finding on breast imaging 05/26/2020 to right breast Essential hypertension, benign Hypothyroidism Past Surgical History: Procedure Laterality Date CORE BIOPSY OF THE BREAST Right 07/02/2020 Benign breast parenchyma with stromal fibrosis, usual type ductal hyperplasia, apocrine metaplasia, and cyst formation BLADDER SUSPENSION 2007 CHOLECYSTECTOMY 2004 OTHER SURGICAL per patient - excision benign lesion right lateral canthus TONSILLECTOMY Review of Systems: Chief Complaint Chief Complaint Patient presents with Pre-op Exam Pre-op Vitals Temp 97 F (36.1 C) (Temporal) Ht 1.702 m (5' 7 ) Wt 130.2 kg (287 lb) BMI 44.95 kg/m Smoking Status Never Body mass index is 44.95 kg/m . [facility] General Plastics Review of Systems: Do you have any of the following: Chills, Fatigue, Fever or Night Sweats: no. Ear pain or eye discharge: no. Hearing loss or visual changes: no. Sore throat or chronic cough: no. Shortness of breath: no. Chest pain, swelling, or heart palpitations: no. Abdominal pain: no. Constipation or diarrhea: no. Heartburn or Nausea: no. Rash or skin problems: no. Breast: lumps, tenderness, discharge: no. Dizziness or numbness: no. Headaches or Migraines: no. Seizures: no. Joint pain, joint swelling or muscle weakness: no. Bruise or bleed easily: no. Any swollen lymph nodes: no. Numbness, weakness, tingling, shooting pain ; no. Fever blisters/cold sores: no. Here for preop for scheduled 11/10/2022 excision of lesion of face and right flank/trunk. Physical Examination height is 1.702 m (5' 7 ) and weight is 130.2 kg (287 lb). Her temporal temperature is 97 F (36.1 C). Estimated body mass index is 44.95 kg/m as calculated from the following: Height as of this encounter: 1.702 m (5' 7 ). Weight as of this encounter: 130.2 kg (287 lb). General: NAD, well appearing HEENT: NC/AT, CN 2-12 grossly intact, V1-V3 grossly intact, no LAD Chest: RRR, CTAB Abdomen: Soft/NT/ND, no palpable masses/hernias, no organomegaly Extremities: Neurovascularly intact This procedure has been fully reviewed with the patient and written informed consent has been obtained. [facility] Work Phone: 11-06-2022 History and physical note Plastic Surgery H & P HPI: Ms. Barney is a 52 y.o. female. Documents updated to proceed with excision of a lesion above the right side of her lip and on her right flank. Family History Problem Relation Age of Onset Hypertension Mother Coronary Artery Disease Mother Other - Specify Mother incontinentia pigmenti Heart Disease - Other Father GI Disease Father hiatal hernia Anemia Father Heart Disease - Other Sister Heart Disease - Other Brother Diabetes Maternal Grandmother Other - Specify Daughter incontinentia pigmenti Breast Cancer Neg Hx Ovarian Cancer Neg Hx Uterine Cancer Neg Hx Social History Socioeconomic History Marital status: Tobacco Use Smoking status: Never Smokeless tobacco: Never Vaping Use Vaping Use: Never used Substance and Sexual Activity Alcohol use: Yes Comment: Rare use Drug use: Never Sexual activity: Yes 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 Last PAP: 05/2020 Para: 2 Age at of first child: 31 Age of menarche: 10 Age of menopause: n/a Patient denies hormonal therapy at this time. BREAST (GENERAL): Patient admits to self-breast exams and does them monthly. Date of patient's first mammogram: Date of most recent mammogram: 05/26/2020 Bra/Cup Size: 44D BREAST(HISTORICAL BIOPSY/THERAPY/TREATMENT) Patient denies previous breast biopsy(s). Patient denies being told they personally have breast cancer or a breast malignancy. Patient denies chemotherapy, hormone therapy or radiation therapy during the last month. Allergies as of 11/06/2022 - Reviewed 11/06/2022 Allergen Reaction Noted Vicodin [hydrocodone-acetaminophen] Nausea and Vomiting 07/02/2020 Current Outpatient Medications Medication Sig Dispense Refill amLODIPine 5 MG tablet Take 2 tablets by mouth daily. levothyroxine 125 MCG tablet Take 175 mcg by mouth daily. Per patient now taking 175 mcg once daily Multiple Vitamins-Minerals (WOMENS MULTIVITAMIN PO) Take by mouth daily. PARoxetine 20 MG tablet No current facility-administered medications for this visit. Past Medical History: Diagnosis Date Abnormal finding on breast imaging 05/26/2020 to right breast Essential hypertension, benign Hypothyroidism Past Surgical History: Procedure Laterality Date CORE BIOPSY OF THE BREAST Right 07/02/2020 Benign breast parenchyma with stromal fibrosis, usual type ductal hyperplasia, apocrine metaplasia, and cyst formation BLADDER SUSPENSION 2007 CHOLECYSTECTOMY 2004 OTHER SURGICAL per patient - excision benign lesion right lateral canthus TONSILLECTOMY Review of Systems: Chief Complaint Chief Complaint Patient presents with Pre-op Exam Pre-op Vitals Temp 97 F (36.1 C) (Temporal) Ht 1.702 m (5' 7 ) Wt 130.2 kg (287 lb) BMI 44.95 kg/m Smoking Status Never Body mass index is 44.95 kg/m . [facility] General Plastics Review of Systems: Do you have any of the following: Chills, Fatigue, Fever or Night Sweats: no. Ear pain or eye discharge: no. Hearing loss or visual changes: no. Sore throat or chronic cough: no. Shortness of breath: no. Chest pain, swelling, or heart palpitations: no. Abdominal pain: no. Constipation or diarrhea: no. Heartburn or Nausea: no. Rash or skin problems: no. Breast: lumps, tenderness, discharge: no. Dizziness or numbness: no. Headaches or Migraines: no. Seizures: no. Joint pain, joint swelling or muscle weakness: no. Bruise or bleed easily: no. Any swollen lymph nodes: no. Numbness, weakness, tingling, shooting pain ; no. Fever blisters/cold sores: no. Here for preop for scheduled 11/10/2022 excision of lesion of face and right flank/trunk. Physical Examination height is 1.702 m (5' 7 ) and weight is 130.2 kg (287 lb). Her temporal temperature is 97 F (36.1 C). Estimated body mass index is 44.95 kg/m as calculated from the following: Height as of this encounter: 1.702 m (5' 7 ). Weight as of this encounter: 130.2 kg (287 lb). General: NAD, well appearing HEENT: NC/AT, CN 2-12 grossly intact, V1-V3 grossly intact, no LAD Chest: RRR, CTAB Abdomen: Soft/NT/ND, no palpable masses/hernias, no organomegaly Extremities: Neurovascularly intact This procedure has been fully reviewed with the patient and written informed consent has been obtained. documented in this encounter [facility] 11-06-2022 History of Present illness Narrative Chief Complaint Chief Complaint Patient presents with Pre-op Exam Pre-op Vitals Temp 97 F (36.1 C) (Temporal) Ht 1.702 m (5' 7 ) Wt 130.2 kg (287 lb) BMI 44.95 kg/m Smoking Status Never Body mass index is 44.95 kg/m . ROS General Plastics Review of Systems: Do you have any of the following: Chills, Fatigue, Fever or Night Sweats: no. Ear pain or eye discharge: no. Hearing loss or visual changes: no. Sore throat or chronic cough: no. Shortness of breath: no. Chest pain, swelling, or heart palpitations: no. Abdominal pain: no. Constipation or diarrhea: no. Heartburn or Nausea: no. Rash or skin problems: no. Breast: lumps, tenderness, discharge: no. Dizziness or numbness: no. Headaches or Migraines: no. Seizures: no. Joint pain, joint swelling or muscle weakness: no. Bruise or bleed easily: no. Any swollen lymph nodes: no. Numbness, weakness, tingling, shooting pain ; no. Fever blisters/cold sores: no. Here for preop for scheduled 11/10/2022 excision of lesion of face and right flank/trunk. documented in this encounter [facility] 10-02-2022 History and physical note Plastic Surgery H & P HPI: Ms. Barney is a 52 y.o. female. She desires to proceed with excision of a lesion above the right side of her lip and on her right flank. Family History Problem Relation Age of Onset Hypertension Mother Coronary Artery Disease Mother Other - Specify Mother incontinentia pigmenti Heart Disease - Other Father GI Disease Father hiatal hernia Anemia Father Heart Disease - Other Sister Heart Disease - Other Brother Diabetes Maternal Grandmother Other - Specify Daughter incontinentia pigmenti Breast Cancer Neg Hx Ovarian Cancer Neg Hx Uterine Cancer Neg Hx Social History Socioeconomic History Marital status: Tobacco Use Smoking status: Never Smokeless tobacco: Never Vaping Use Vaping Use: Never used Substance and Sexual Activity Alcohol use: Yes Comment: Rare use Drug use: Never Sexual activity: Yes 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 Last PAP: 05/2020 Para: 2 Age at of first child: 31 Age of menarche: 10 Age of menopause: n/a Patient denies hormonal therapy at this time. BREAST (GENERAL): Patient admits to self-breast exams and does them monthly. Date of patient's first mammogram: Date of most recent mammogram: 05/26/2020 Bra/Cup Size: 44D BREAST(HISTORICAL BIOPSY/THERAPY/TREATMENT) Patient denies previous breast biopsy(s). Patient denies being told they personally have breast cancer or a breast malignancy. Patient denies chemotherapy, hormone therapy or radiation therapy during the last month. Allergies as of 10/02/2022 - Reviewed 10/02/2022 Allergen Reaction Noted Vicodin [hydrocodone-acetaminophen] Nausea and Vomiting 07/02/2020 Current Outpatient Medications Medication Sig Dispense Refill amLODIPine 5 MG tablet Take 10 mg by mouth daily. levothyroxine 125 MCG tablet Take 150 mcg by mouth daily. Multiple Vitamins-Minerals (WOMENS MULTIVITAMIN PO) Take by mouth daily. PARoxetine 20 MG tablet No current facility-administered medications for this visit. Past Medical History: Diagnosis Date Abnormal finding on breast imaging 05/26/2020 to right breast Essential hypertension, benign Hypothyroidism Past Surgical History: Procedure Laterality Date CORE BIOPSY OF THE BREAST Right 07/02/2020 Benign breast parenchyma with stromal fibrosis, usual type ductal hyperplasia, apocrine metaplasia, and cyst formation BLADDER SUSPENSION 2007 CHOLECYSTECTOMY 2005 OTHER SURGICAL per patient - excision benign lesion right lateral canthus TONSILLECTOMY Review of Systems: Chief Complaint Lesion right upper lip and right hip Vitals Temp 98.7 F (37.1 C) (Temporal) Ht 1.702 m (5' 7 ) Wt 130.2 kg (287 lb) BMI 44.95 kg/m Smoking Status Never Body mass index is 44.95 kg/m . ROS General Plastics Review of Systems: Do you have any of the following: Chills, Fatigue, Fever or Night Sweats: no. Ear pain or eye discharge: no. Hearing loss or visual changes: no. Sore throat or chronic cough: no. Shortness of breath: no. Chest pain, swelling, or heart palpitations: no. Abdominal pain: no. Constipation or diarrhea: no. Heartburn or Nausea: no. Rash or skin problems: no. Breast: lumps, tenderness, discharge: no. Dizziness or numbness: no. Headaches or Migraines: no. Seizures: no. Joint pain, joint swelling or muscle weakness: no. Bruise or bleed easily: no. Any swollen lymph nodes: no. Numbness, weakness, tingling, shooting pain ; no. Fever blisters/cold sores: no. Referred by Dr. Rosas for lesion on the right upper lip present for at least 15 years. States the lesion has increased in size and become more raised. Also c/o of lesion on the right hip area present for more than 10 years with increase in size. States the lesion on the right upper lip can at times have irritation. Physical Examination height is 1.702 m (5' 7 ) and weight is 130.2 kg (287 lb). Her temporal temperature is 98.7 F (37.1 C). Estimated body mass index is 44.95 kg/m as calculated from the following: Height as of this encounter: 1.702 m (5' 7 ). Weight as of this encounter: 130.2 kg (287 lb). General: NAD, well appearing HEENT: NC/AT, CN 2-12 grossly intact, V1-V3 grossly intact, no LAD Chest: RRR, CTAB Abdomen: Soft/NT/ND, no palpable masses/hernias, no organomegaly Extremities: Neurovascularly intact This procedure has been fully reviewed with the patient and written informed consent has been obtained. [facility] 10-02-2022 History and physical note Plastic Surgery H & P HPI: Ms. Barney is a 52 y.o. female. She desires to proceed with excision of a lesion above the right side of her lip and on her right flank. Family History Problem Relation Age of Onset Hypertension Mother Coronary Artery Disease Mother Other - Specify Mother incontinentia pigmenti Heart Disease - Other Father GI Disease Father hiatal hernia Anemia Father Heart Disease - Other Sister Heart Disease - Other Brother Diabetes Maternal Grandmother Other - Specify Daughter incontinentia pigmenti Breast Cancer Neg Hx Ovarian Cancer Neg Hx Uterine Cancer Neg Hx Social History Socioeconomic History Marital status: Tobacco Use Smoking status: Never Smokeless tobacco: Never Vaping Use Vaping Use: Never used Substance and Sexual Activity Alcohol use: Yes Comment: Rare use Drug use: Never Sexual activity: Yes 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 Last PAP: 05/2020 Para: 2 Age at of first child: 31 Age of menarche: 10 Age of menopause: n/a Patient denies hormonal therapy at this time. BREAST (GENERAL): Patient admits to self-breast exams and does them monthly. Date of patient's first mammogram: Date of most recent mammogram: 05/26/2020 Bra/Cup Size: 44D BREAST(HISTORICAL BIOPSY/THERAPY/TREATMENT) Patient denies previous breast biopsy(s). Patient denies being told they personally have breast cancer or a breast malignancy. Patient denies chemotherapy, hormone therapy or radiation therapy during the last month. Allergies as of 10/02/2022 - Reviewed 10/02/2022 Allergen Reaction Noted Vicodin [hydrocodone-acetaminophen] Nausea and Vomiting 07/02/2020 Current Outpatient Medications Medication Sig Dispense Refill amLODIPine 5 MG tablet Take 10 mg by mouth daily. levothyroxine 125 MCG tablet Take 150 mcg by mouth daily. Multiple Vitamins-Minerals (WOMENS MULTIVITAMIN PO) Take by mouth daily. PARoxetine 20 MG tablet No current facility-administered medications for this visit. Past Medical History: Diagnosis Date Abnormal finding on breast imaging 05/26/2020 to right breast Essential hypertension, benign Hypothyroidism Past Surgical History: Procedure Laterality Date CORE BIOPSY OF THE BREAST Right 07/02/2020 Benign breast parenchyma with stromal fibrosis, usual type ductal hyperplasia, apocrine metaplasia, and cyst formation BLADDER SUSPENSION 2007 CHOLECYSTECTOMY 2004 OTHER SURGICAL per patient - excision benign lesion right lateral canthus TONSILLECTOMY Review of Systems: Chief Complaint Lesion right upper lip and right hip Vitals Temp 98.7 F (37.1 C) (Temporal) Ht 1.702 m (5' 7 ) Wt 130.2 kg (287 lb) BMI 44.95 kg/m Smoking Status Never Body mass index is 44.95 kg/m . [facility] General Plastics Review of Systems: Do you have any of the following: Chills, Fatigue, Fever or Night Sweats: no. Ear pain or eye discharge: no. Hearing loss or visual changes: no. Sore throat or chronic cough: no. Shortness of breath: no. Chest pain, swelling, or heart palpitations: no. Abdominal pain: no. Constipation or diarrhea: no. Heartburn or Nausea: no. Rash or skin problems: no. Breast: lumps, tenderness, discharge: no. Dizziness or numbness: no. Headaches or Migraines: no. Seizures: no. Joint pain, joint swelling or muscle weakness: no. Bruise or bleed easily: no. Any swollen lymph nodes: no. Numbness, weakness, tingling, shooting pain ; no. Fever blisters/cold sores: no. Referred by Dr. Rosas for lesion on the right upper lip present for at least 15 years. States the lesion has increased in size and become more raised. Also c/o of lesion on the right hip area present for more than 10 years with increase in size. States the lesion on the right upper lip can at times have irritation. Physical Examination height is 1.702 m (5' 7 ) and weight is 130.2 kg (287 lb). Her temporal temperature is 98.7 F (37.1 C). Estimated body mass index is 44.95 kg/m as calculated from the following: Height as of this encounter: 1.702 m (5' 7 ). Weight as of this encounter: 130.2 kg (287 lb). General: NAD, well appearing HEENT: NC/AT, CN 2-12 grossly intact, V1-V3 grossly intact, no LAD Chest: RRR, CTAB Abdomen: Soft/NT/ND, no palpable masses/hernias, no organomegaly Extremities: Neurovascularly intact This procedure has been fully reviewed with the patient and written informed consent has been obtained. documented in this encounter [facility] 10-02-2022 History of Present illness Narrative Chief Complaint Lesion right upper lip and right hip Vitals Temp 98.7 F (37.1 C) (Temporal) Ht 1.702 m (5' 7 ) Wt 130.2 kg (287 lb) BMI 44.95 kg/m Smoking Status Never Body mass index is 44.95 kg/m . ROS General Plastics Review of Systems: Do you have any of the following: Chills, Fatigue, Fever or Night Sweats: no. Ear pain or eye discharge: no. Hearing loss or visual changes: no. Sore throat or chronic cough: no. Shortness of breath: no. Chest pain, swelling, or heart palpitations: no. Abdominal pain: no. Constipation or diarrhea: no. Heartburn or Nausea: no. Rash or skin problems: no. Breast: lumps, tenderness, discharge: no. Dizziness or numbness: no. Headaches or Migraines: no. Seizures: no. Joint pain, joint swelling or muscle weakness: no. Bruise or bleed easily: no. Any swollen lymph nodes: no. Numbness, weakness, tingling, shooting pain ; no. Fever blisters/cold sores: no. Referred by Dr. Rosas for lesion on the right upper lip present for at least 15 years. States the lesion has increased in size and become more raised. Also c/o of lesion on the right hip area present for more than 10 years with increase in size. States the lesion on the right upper lip can at times have irritation. Plastic and Reconstructive Surgery Consultation Referring Provider: Dr. Rosas Reason for Consultation: HPI: Ms. Barney is a 52 y.o. female. She presents for evaluation of skin lesions. Location: Right upper lip, 0.6 cm x 0.8 cm. Right flank, slightly elevated, 0.8 cm x 1.5 cm Duration: Many years Symptoms: lesion and irritated Prior treatments: None She has a smaller benign nevus on her chin that does not currently bother her. Review of Systems: Chief Complaint Lesion right upper lip and right hip Vitals Temp 98.7 F (37.1 C) (Temporal) Ht 1.702 m (5' 7 ) Wt 130.2 kg (287 lb) BMI 44.95 kg/m Smoking Status Never Body mass index is 44.95 kg/m . ROS General Plastics Review of Systems: Do you have any of the following: Chills, Fatigue, Fever or Night Sweats: no. Ear pain or eye discharge: no. Hearing loss or visual changes: no. Sore throat or chronic cough: no. Shortness of breath: no. Chest pain, swelling, or heart palpitations: no. Abdominal pain: no. Constipation or diarrhea: no. Heartburn or Nausea: no. Rash or skin problems: no. Breast: lumps, tenderness, discharge: no. Dizziness or numbness: no. Headaches or Migraines: no. Seizures: no. Joint pain, joint swelling or muscle weakness: no. Bruise or bleed easily: no. Any swollen lymph nodes: no. Numbness, weakness, tingling, shooting pain ; no. Fever blisters/cold sores: no. Referred by Dr. Rosas for lesion on the right upper lip present for at least 15 years. States the lesion has increased in size and become more raised. Also c/o of lesion on the right hip area present for more than 10 years with increase in size. States the lesion on the right upper lip can at times have irritation. Physical Examination height is 1.702 m (5' 7 ) and weight is 130.2 kg (287 lb). Her temporal temperature is 98.7 F (37.1 C). Estimated body mass index is 44.95 kg/m as calculated from the following: Height as of this encounter: 1.702 m (5' 7 ). Weight as of this encounter: 130.2 kg (287 lb). General: NAD, well appearing HEENT: NC/AT, CN 2-12 grossly intact, V1-V3 grossly intact, no LAD Chest: No dyspnea Abdomen: No discomfort Extremities: Neurovascularly intact Assessment, Plan I discussed that the lesions on her face appear to be: benign intradermal nevi. The lesion on her right flank appears to be a fibroepithelial polyp. I discussed excision of the lesions above the right side of her lip and on her right flank. I discussed that this could be performed at: clinic operating room. I discussed risks including but not limited to: bleeding, infection, hematoma, seroma, wound breakdown, scar, need for further surgery, deformity, pain, numbness, weakness, recurrence, dissatisfaction with results, asymmetry, injury to structures, and medical complications. I discussed that the scar involved would be larger than the maximal dimension of the lesion itself. The patient would like to proceed and therefore we will initiate the insurance approval process. 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 04-25-2022 Note HNO ID: [id number] Author: Jasper Lopez II, OD Service: ? 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 Monitor yearly for change. 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 Retinas flat and intact with no apparent retinal tear or traction. Monitor yearly. H52.03 Hyperopia of both eyes H52.4 Presbyopia Comment: Increasing presbyopia is cause for eye strain with prolonged near tasks. Increase glasses power to maximize vision. I have confirmed and edited as necessary the relevant ophthalmic history, ROS, and the neuro exam findings as obtained by others. I have seen and examined Bernadette Barney. I have discussed the case and the management of this patient's care with the Resident/Fellow, if applicable. I also have reviewed and agree with the assessment and plan as stated above and agree with all of its relevant components. 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 Monitor yearly for change. 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 Retinas flat and intact with no apparent retinal tear or traction. Monitor yearly. H52.03 Hyperopia of both eyes H52.4 Presbyopia Comment: Increasing presbyopia is cause for eye strain with prolonged near tasks. Increase glasses power to maximize vision. I have confirmed and edited as necessary the relevant ophthalmic history, ROS, and the neuro exam findings as obtained by others. I have seen and examined Bernadette Barney. I have discussed the case and the management of this patient's care with the Resident/Fellow, if applicable. I also have reviewed and agree with the assessment and plan as stated above and agree with all of its relevant components. 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 Monitor yearly for change. 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 Retinas flat and intact with no apparent retinal tear or traction. Monitor yearly. H52.03 Hyperopia of both eyes H52.4 Presbyopia Comment: Increasing presbyopia is cause for eye strain with prolonged near tasks. Increase glasses power to maximize vision. I have confirmed and edited as necessary the relevant ophthalmic history, ROS, and the neuro exam findings as obtained by others. I have seen and examined Bernadette Barney. I have discussed the case and the management of this patient's care with the Resident/Fellow, if applicable. I also have reviewed and agree with the assessment and plan as stated above and agree with all of its relevant components. Jasper Lopez II, OD documented in this encounter [facility] for screening [facility] Other screening [facility] [place] [facility] Diagnosis 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 Unspecified hypertrophic and atrophic condition of skin [facility] [place] [facility] Diagnosis 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 Unspecified hypertrophic and atrophic condition of skin [facility] [place] [facility] Diagnosis Multiple benign nevi of face Fibroepithelial polyp Unspecified hypertrophic and atrophic condition of skin [facility] [place] [facility] Diagnosis Multiple benign nevi of face- Primary documented in this encounter [facility] note* Diagnosis Visit for screening mammogram Other screening mammogram [facility] [place] [facility] Diagnosis Urinary incontinence, unspecified type SHERIE (stress urinary incontinence, female) documented in this encounter [facility] note* Diagnosis SHERIE (stress urinary incontinence, female)- Primary documented in this encounter [facility] note* Diagnosis SHERIE (stress urinary incontinence, female)- Primary documented in this encounter [facility] for visit Narrative* Auth/Cert Specialty Diagnoses / Procedures Referred By Ede baxter Referred To Contact Diagnoses Multiple benign nevi of face 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 [D22.30] Fibroepithelial polyp [L91.8] Procedures WA EXC SKIN BENIG 0.6-1CM FACE,FACIAL WA LAYR CLOS WND FACE,FACIAL </= 2.5CM WA EXC SKIN BENIG 1.1-2CM TRUNK,ARM,LEG WA LAYR CLOS WND TRUNK,ARM,LEG </= 2.5CM EXCISION LESION SKIN EAR EYELID FACE LIP NOSE REPAIR WOUND INTERMEDIATE EAR EYELID FACE LIP NOSE EXCISION LESION SKIN TRUNK REPAIR WOUND INTERMEDIATE AXILLAE TRUNK Mika Roy DO [address] [place] [address] Referral ID Status Reason Start Date Expiration Date Visits Re quested Visits Authorized [id number] 10/02/2022 1 1 [facility] Summary Purpose Family History No Family History Records FoundNo Family History Records FoundNo Family History Records FoundNo Family History Records FoundNo Family History Records FoundNo Family History Records FoundNo Family History Records FoundNo Family History Records FoundNo Family History Records FoundNo Family History Records Found Advance Directives Documents on File Type Date Recorded 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 [address] Referral ID Status Reason Start Date Expiration Date V isits Requested Visits Authorized [id number] New Request 05/02/2023 05/26/2024 1 1 Additional Source Comments INFORMATION SOURCE (unrecogn ized section and content) DATE CREATED AUTHOR AUTHOR'S ORGANIZ ATION 04/14/2020 [facility] DATE CREATED AUTHOR AUTHOR'S ORGANIZ ATION 06/18/2020 [facility] DATE CREATED AUTHOR AUTHOR'S ORGANIZ ATION 06/20/2020 [facility] [facility] DATE CREATED AUTHOR AUTHOR'S ORGANIZ ATION 04/26/2022 [facility] DATE CREATED AUTHOR AUTHOR'S ORGANIZ ATION 05/07/2022 [facility] DATE CREATED AUTHOR AUTHOR'S ORGANIZ ATION 12/19/2022 [facility] DATE CREATED AUTHOR AUTHOR'S ORGANIZ ATION 01/22/2023 [facility] DATE CREATED AUTHOR AUTHOR'S ORGANIZ ATION 06/04/2023 [facility] DATE CREATED AUTHOR AUTHOR'S ORGANIZ ATION 06/30/2023 [facility] Source Comments (unrecognize d section and content) In the event this informatio n is protected by the Federal Confidentiality of Alcohol and Drug Abuse Patient Records regulations: The Federal rules restrict any use of the information to criminally investigate or prosecute any alcohol or drug abuse patient.[facility] Reason for Visit (unrecogniz ed section and content) Specialty Diagnoses / Procedures Referred By Ede baxter Referred To Contact Diagnoses Visit for screening mammogram Procedures MAMMO SCREENING WITH ISAAC BILATERAL MAMMO SCREENING BILATERAL Mammography-Cecy, Self-Requested [address] [place] [address] Referral ID Status Reason Start Date Expiration Date V isits Requested Visits Authorized [id number] New Request 04/21/2022 05/16/2023 1 1 Reason Comments New Patient Lesion of left upper lip and left hip Specialty Diagnoses / Procedures Referred By Ede baxter Referred To Contact Plastic Surgery Diagnoses Neoplasm of uncertain behavior of skin of face Autumn Rosas MD [address] [place] [address] Mika Roy DO [address] [place] [id number] Referral ID Status Reason Start Date Expiration Date V isits Requested Visits Authorized [id number] Pending Review 09/28/2022 10/23/2023 1 1 Reason Comments Pre-op Exam Pre-op Reason Comments Post Op Visit Post op Specialty Diagnoses / Procedures Referred By Ede baxter Referred To Contact Diagnoses Visit for screening mammogram Procedures MAMMO SCREENING WITH ISAAC BILATERAL Mammography-Cecy, Self-Requested [address] [place] [address] Referral ID Status Reason Start Date Expiration Date V isits Requested Visits Authorized [id number] New Request 05/02/2023 05/26/2024 1 1 Reason Comments Pelvic Floor Specialty Diagnoses / Procedures Referred By Ede baxter Referred To Contact Rehabilitation Diagnoses Urinary incontinence, unspecified type Sylwia Salinas, [employer] [address] [place] [address] [facility] [address] [place] [address] Referral ID Status Reason Start Date Expiration Date V isits Requested Visits Authorized [id number] Authorized 05/15/2023 05/14/2024 5 5 Specialty Diagnoses / Procedures Referred By Contac t Referred To Contact Rehabilitation Diagnoses Urinary incontinence, unspecified type Sylwia Salinas, [employer] [address] [place] [address] [facility] [address] [place] [address] Care Teams (unrecognized sec tion and content) Psychosocial Rehabilitation Counselor Relationship Specialty Start Date End Date Shila Quintanilla RN Registered Nurse 07/02/20 Psychosocial Rehabilitation Counselor Relationship Specialty Start Date End Date Autumn Rosas MD [address] [place] [phone] PCP - General Family Medicine 10/02/22 Shila Quintanilla, RN Registered Nurse 07/02/20 Psychosocial Rehabilitation Counselor Relationship Specialty Start Date End Date Autumn Rosas MD [address] [place] [phone] PCP - General Family Medicine 10/02/22 Shila Quintanilla, RN Registered Nurse 07/02/20 Psychosocial Rehabilitation Counselor Relationship Specialty Start Date End Date Autumn Rosas MD [address] [place] [phone] PCP - General Family Medicine 10/02/22 Shila Quintanilla, RN Registered Nurse 07/02/20 Psychosocial Rehabilitation Counselor Relationship Specialty Start Date End Date Autumn Rosas MD PCP - General Family Medicine 10/02/22 Shila Quintanilla, RN Registered Nurse 07/02/20 [facility] Other [address] [place] [address] Obstetrics & Gynecology 05/02/23 Psychosocial Rehabilitation Counselor Relationship Specialty Start Date End Date Autumn Rosas MD PCP - General 02/12/12 Jenaro Zimmerman CNP [address] [place] [address] Referring Physician Nurse Practitioner 06/17/20 Psychosocial Rehabilitation Counselor Relationship Specialty Start Date End Date Autumn Rosas MD [address] [place] [address] PCP - General 02/12/12 Jenaro Zimmerman CNP [address] [place] [address] Referring Physician Nurse Practitioner 06/17/20 Psychosocial Rehabilitation Counselor Relationship Specialty Start Date End Date Autumn Rosas MD [address] [place] [address] PCP - General 02/12/12 Jenaro Zimmerman CNP [address] [place] [address] Referring Physician Nurse Practitioner 06/17/20 Psychosocial Rehabilitation Counselor Relationship Specialty Start Date End Date Autumn Rosas MD [address] [place] [address] PCP - General 02/12/12 Jenaro Zimmerman CNP [address] [place] [address] Referring Physician Nurse Practitioner 06/17/20 PRN Active and Recently Administ ered Medications (unrecognized section and content) FOR RECORDS PERTAINING TO PATIENTS WHO ARE OR HAVE BEEN ENROLLED IN A CHEMICAL DEPENDENCY/SUBSTANCEABUSE PROGRAM, SOME INFORMATION MAY BE OMITTED. This clinical summary was aggregated from multiple sources. Caution should be exercised in using it in the provision of clinical care. This summary normalizes information from multiple sources, and as a consequence, information in this document may materially change the coding, format and clinical context of patient data. In addition, data may be omitted in some cases. CLINICAL DECISIONS SHOULD BE BASED ON THE PRIMARY CLINICAL RECORDS. [facility]. provides no warranty or guarantee of the accuracy or completeness of information in this document.
== END | disposition home or self-care (01) ==
LOC: LABSPEC 08:01
PROVIDERS: PCP Internal Medicine; Visit Provider Internal Medicine
DX: J06.9 Acute upper respiratory infection, unspecified (principal)
CPT/HCPCS: 87635

== ENCOUNTER → 2024-01-01 | Outpatient (CLI) | payer OTHER, SELFPAY ==
[2024-01-01 11:05] LABS: Absolute Lymphocyte Count 2.77 X10^3/uL (0.83-4.51); Absolute Neutrophil Count 4.4 X10^3/uL (2.0-7.7); Basophil# 0.05 X10^3/uL; Basophil% 0.6 % (0-1); Eosinophil# 0.28 X10^3/uL; Eosinophils% 3.4 % (0-5); Hematocrit 39.5 % (37-47); Hemoglobin 12.9 g/dL (12.0-15.0); Lymphocyte # 2.77 X10^3/ul (0.83-4.51); Lymphocyte % 33.2 % (19-41); Mean Corp Hgb Conc 32.7 g/dL (32-36); Mean Corpuscular Hgb 30.1 pg (27.0-32.0); Mean Corpuscular Volume 92.1 fL (81-99); Mean Platelet Vol. 10.1 fl (6.2-12.0); Monocyte# 0.81 X10^3/uL; Monocyte% 9.7 % (0-10); NRBC Flagged by Analyzer 0 % (0-5); Neutrophil # 4.41 X10^3/uL (2.7-7.7); Neutrophil % 52.7 % (47-70); Platelet Count 311 K/mm3 (150-450); RBC Distribution Width CV 12.3 % (11.6-14.6); RBC Distribution Width SD 40.8 fl (35.1-43.9); Red Blood Count 4.29 M/mm3 (4.2-5.4); White Blood Count 8.4 K/mm3 (4.4-11.0)
== END | disposition home or self-care (01) ==
PROVIDERS: PCP Internal Medicine; Referring Provider Internal Medicine; Visit Provider Internal Medicine
DX: G47.10 Hypersomnia, unspecified (principal); E03.9 Hypothyroidism, unspecified; I10 Essential (primary) hypertension
CPT/HCPCS: 36415; 80053; 80061; 84443; 85025; 95806

== ENCOUNTER → 2024-01-04 | Outpatient (CLI) | payer OTHER, SELFPAY ==
--- OUTSIDE RECORDS SUMMARY | 2024-01-04 06:20 | XMS RPT_ITS | CCD ---
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 Name Role Phone Autumn Rosas Unavailable Unavailable [...] Unavailable Autumn Rosas MD Primary Care Provider [facility] Other Unavailable SINDY CAPUTO, KRISTEN Hein Consulting Unavailable RALPH CAPUTO, ~[phone] AUTUMN Primary Care Unavailable DUSTIN MORENO Admitting Unavailable STINEMJINA, DUSTIN Kumar Attending Unavailable SINDY CAPUTO, KRISTEN Hein Consulting Unavailable TIFFANIE, DUSTIN Kumar Consulting Unavailable DUSTIN MORENO Consulting Unavailable RALPH CAPUTO, ~[phone] AUTUMN Consulting Unavailable RALPH CAPUTO, DR LEYVA [...] acetaminophen / HYDROcodone; Translations: [Vicodin] Drug Allergy [facility] Repository (11 sources) Acetaminophen / HYDROcodone; Translations: [HYDROCODONE-ACET AMINOPHEN] Drug Allergy 0 Nausea and Vomiting [facility] (1 source) Codeine Drug Allergy 0 Nausea and Vomiting [facility] (5 sources) Latex; Translations: [LATEX] Propensity to adverse reactions to drug 2 Rash [facility] Medications Current Medications Medication Drug Class(es) Dates [...] Anesthetic Start: 11-10-2022 End: 11-10-2022 lidocaine-epinephr ine 1%-1:530337 injection erythromycin 0.005 mg/mg ophthalmic ointment (1 [...] 170.2 cm Mika Roy DO Work Phone: [employer] 11-20-2022 11:46-0500 Body temperature 98.4 [degF] Mika Roy DO Work Phone: [employer] 11-10-2022 13:06-0500 Diastolic blood pressure 69 mm[Hg] Mika Roy DO Work Phone: [employer] 11-10-2022 13:06-0500 Heart rate 79 /min Mika Statonac DO Work Phone: [employer] 11-10-2022 13:06-0500 Respiratory rate 19 /min Mika Roy DO Work Phone: [employer] [facility] 11-10-2022 13:06-0500 SaO2% (BldA) [Mass fraction] 99 % Mika Roy DO Work Phone: [employer] [facility] 11-10-2022 13:06-0500 Systolic blood pressure 142 mm[Hg] Mika Bodjanac DO Work Phone: [employer] 11-10-2022 12:08-0500 Body height 170.2 cm Mika Bodjanac DO Work Phone: [employer] 11-10-2022 12:08-0500 Body mass index (BMI) [Ratio] 43.85 kg/m2 Mika Bodjanac DO Work Phone: [employer] 11-10-2022 12:08-0500 Body temperature 99.9 [degF] Mika Bodjanac DO Work Phone: [employer] 11-10-2022 12:08-0500 Body weight 127.01 kg Mika Bodjanac DO Work Phone: [employer] 11-06-2022 15:09-0500 Body height 170.2 cm Mika Linderjanac DO Work Phone: [employer] 11-06-2022 15:09-0500 Body mass index (BMI) [Ratio] 44.95 kg/m2 Mika Bodjanac DO Work Phone: [employer] 11-06-2022 15:09-0500 Body temperature 97 [degF] Mika Bodjanac DO Work Phone: [employer] 11-06-2022 15:09-0500 Body weight 130.18 kg Mika Bodjanac DO Work Phone: [employer] 10-02-2022 09:46-0500 Body height 170.2 cm Mika Bodjanac DO Work Phone: [employer] 10-02-2022 09:46-0500 Body mass index (BMI) [Ratio] 44.95 kg/m2 Mika Bodjanac DO Work Phone: [employer] 10-02-2022 09:46-0500 Body temperature 98.71 [degF] Mika Bodjanac DO Work Phone: [facility] [employer] [facility] 10-02-2022 09:46-0500 Body weight 130.18 kg Mika Roy DO Work Phone: [facility] Encounters Encounter Date Encounter Type Care Provider Facility Start: 07-17-2023 End: 07-17-2023 ambulatory Sylwia Salinas CNP Work Phone: [facility] Procedures Date Procedure Procedure Detail Performing Clinician Start: 05-03-2023 Mammography Ayesha bloom PT Start: 05-02-2022 Screening mammograph y bi 2-view breast inc cad Self-Requested [facility]andel[facility] Work Phone: Plan of Treatment Date Care Activity Detail Author Start: 04-02-2029 Tetanus vaccination [facility] Start: 05-03-2024 Screening for malign ant neoplasm of breast Mammogram [facility] Start: 07-13-2023 End: 07-13-2023 ambulatory 07/13/2023 4:00 PM EDT [facility] [address] [place] [phone] Sylwia Salinas, STEAM SETTER [address] [place] [address] Ayesha Hidalgo, PT [facility] Start: 06-29-2023 COVID-19 Vaccine ( season) COVID-19 Vaccine ( season) [facility] Start: 06-29-2023 Influenza vaccination [facility] Start: 06-25-2023 End: 06-25-2023 ambulatory 06/25/2023 4:45 PM EDT [facility] [address] [place] [phone] Sylwia Salinas, STEAM SETTER [address] [place] [address] Ayesha Hidalgo, PT [facility] Start: 06-18-2023 End: 06-18-2023 ambulatory 06/18/2023 9:15 AM EDT Treatment [facility] [place] [address] Sylwia Salinas, STEAM SETTER [address] [place] [address] Ayesha Hidalgo, ALLISON Discharge Disposition: Home [facility] Start: 05-02-2023 End: 05-02-2024 MG Breast - bilateral Screening MAMMO SCREENING WITH ISAAC BILATERAL Imaging Routine Visit for screening mammogram Expected: 05/02/2023, Expires: 05/02/2024 [facility] Work Phone: Immunizations Immunization Date Immunization Notes Care Provider [facility] 09-18-2022 influenza virus vaccine, unspecified formulation Autumn Rosas MD Work Phone: [facility] 01-06-2022 zoster vaccine, unspecified formulation Mika Roy DO Work Phone: [facility] 10-07-2021 influenza virus vaccine, unspecified formulation Self-Requested [facility]amm[facility]andelario Work Phone: [facility] Payers Date Payer Category Payer Unknown [id number]. [id number] 2001 Unknown 1970 Unknown [id number] 2.16.84 [id number] 1969 Unknown [id number] 2.16.84 0.1.481904.3.579.2.71 1969 Unknown [id number] 2.16. 840.1.052422.3.579.2.903 1969 Unknown [id number] 2.16. 840.1.683440.3.579.2.903 1969 Unknown [id number] 2.16.8 40.1.695111.3.579.2.900 1969 Unknown [id number] 2.16.8 40.1.290885.3.579.2.900 1969 Unknown [id number] 2.16.8 40.1.845034.3.579.2.900 1969 Unknown [id number] 2.16.8 40.1.629225.3.579.2.900 1969 Unknown [id number] 2.16.8 40.1.403813.3.579.2.900 1969 Unknown [id number] 2.16. 840.1.250874.3.579.2.594 1969 Unknown [id number] 2. 840.1.827326.3.579.2.594 1969 Unknown [id number] 2.16.8 40.1.012538.3.579.2.983 1969 Unknown [id number] 2.16.8 40.1.251599.3.579.2.983 1969 Unknown [id number] 2.16.8 40.1.977485.3.579.2.983 1969 Unknown [id number] 2.16.8 40.1.629149.3.579.2.983 1969 Unknown [id number] 2.16.8 40.1.493010.3.579.2.1069 1969 Unknown [id number] 2.16.8 40.1.076942.3.579.2.419 1969 Unknown [id number] 2.16 840.1.851942.3.579.2.903 1969 Unknown [id number] 2.16 840.1.005510.3.579.2.903 1969 Unknown [id number] 2.16 840.1.594240.3.579.2.903 1959 Unknown [id number] Social History Date Type Detail Facility [facility] Start: 1970 Sex Assigned At Not on file [facility] Start: 04-08-2015 End: 02-08-2022 Tobacco smoking status NHIS Never smoked tobacco Start: 04-08-2015 End: 02-08-2022 Tobacco use and exposure Smokeless tobacco non-user Start: 04-25-2022 Alcohol intake Ex-drinker (finding) Start: 04-15-2022 End: 04-25-2022 Exposure to SARS-CoV-2 (event) Not sure Start: 05-02-2022 End: 05-03-2023 Alcohol intake Current drinker of alcohol (finding) [facility] Start: 07-02-2020 End: 01-18-2021 History SDOH Alcohol Frequency 2 [facility] Start: 07-02-2020 History SDOH Alcohol Comment Rare use [facility] Start: 01-18-2021 History SDOH Financial 5 [facility] Start: 01-18-2021 History SDOH Food Worry 1 [facility] Start: 07-02-2020 End: 10-18-2022 History of Social function [facility] Start: 07-02-2020 End: 10-18-2022 Alcohol Use Disorder Identification Test - Consumption [AUDIT-C] [facility] How often to you hav e a drink containing alcohol? Monthly or less [facility] Average Number of Drinks Not on file [facility] (I/We) worried nola er (my/our) food would run out before (I/we) got money to buy more. Never true [facility] Start: 04-24-2022 Gender identity Identifies as female gender (finding) [facility] Start: 04-24-2022 Sexual orientation Heterosexual (finding) [facility] Start: 10-18-2022 Alcohol intake Lifetime non-drinker (finding) [facility] Clinical Notes 04-25-2022 to 07-17-2023 Ayesha Hidalgo, PT - 07/17/2023 7:45 AM Ayesha White, PT - 06/25/2023 4:45 PM Ayesha White, PT - 06/18/2023 4:00 PM Ayesha White, PT - 06/11/2023 1:45 PM EDTDischarge Instructions Note Date & Type Note Facility 07-17-2023 History of Present illness Narrative Discharged from PT. documented in this encounter [facility] 06-25-2023 History of Present illness Narrative [facility] DAILY TREATMENT NOTE Today's Date [...] Treatments: Physical Therapy Exercise Log - 06/25/23 4300 OTHER Notes SHERIE Therapeutic Exercise (66142) Intervention supine pelvic brace 2 sec and [...] floor strengthening. Ayesha Hidalgo PT State License, [id number] documented in this encounter [facility] 06-18-2023 History of Present illness Narrative [facility] DAILY TREATMENT NOTE Today's Date [...] 06/18/23 1604 OTHER Notes SHERIE Therapeutic Exercise (62997) Intervention supine pelvic brace 2 sec and [...] floor strengthening. Ayesha Hidalgo PT State License, [id number] documented in this encounter [facility] 06-11-2023 History of Present illness Narrative [facility] Evaluation Today's Date 06/11/2023 Patient [...] Exam Informed consent for Internal exam: Verbal Glove Operator present: No Reported History of Physical [...] 06/11/23 1400 OTHER Notes SHERIE Therapeutic Exercise (43951) Intervention supine pelvic brace 2 sec and [...] week Duration: 4 weeks Interventions: Therapeutic Exercise (10069) and Electrical Stimulation - Unattended (45866) Rehab Potential: good Goals: Physical Therapy Ortho [...] medically necessary. Ayesha Hidalgo, PT State License, [id number] documented in this encounter [facility] 06-01-2023 Note PROCEDURE: ANKLE RIG HT COMPLETE, [...] Calcaneal enthesopathy. 2. No acute pathology identified. [facility] 05-03-2023 History of Present illness Narrative Patient offered a medical program developer for sensitive exam. Pt declined documented in this encounter [facility] 11-20-2022 History of Present illness Narrative Chief [...] to the surgical sites. documented in this [facility] 11-10-2022 Note Formatting of this n ote [...] treated with Tylenol or Ibuprofen as needed. [facility] 11-10-2022 Miscellaneous Notes EXCISION OF SKIN LESION [...] as needed. POST OPERATIVE/PROCEDURE NOTE Bernadette Barney ([id number]) SURGEON Surgeon(s) and Role: * Mika Roy DO - Primary CUSTOMER SERVICE OFFICER None ANESTHESIOLOGIST No anesthesia staff entered. SURGICAL STAFF Track Layer Head: Hannah Roque RN; Farheen Horton RN Marine Service Station Attendant: Linn Hickey PROCEDURE PERFORMED Procedure(s) (LRB): EXCISION [...] 2022 12:55 PM documented in this encounter [facility] 11-10-2022 Hospital Discharge instructions Mika Roy DO - 11/10/2022 12:57 PM EST May shower. Maintain steri-strips and keep them as clean and dry as possible. Tylenol as needed for pain. Sleep on clean but old towels, as some seepage, which is normal, may occur. documented in this encounter [facility] 11-10-2022 Note Formatting of this n ote is different from the original. POST OPERATIVE/PROCEDURE NOTE Bernadette Barney ([id number]) SURGEON Surgeon(s) and Role: * Mika Roy DO - Primary CUSTOMER SERVICE OFFICER None ANESTHESIOLOGIST No anesthesia staff entered. 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 Last [...] Body mass index is 44.95 kg/m . [facility] General Plastics Review of Systems: Do [...] and written informed consent has been obtained. 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 Last [...] has been obtained. 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 Last [...] Body mass index is 44.95 kg/m . [facility] General Plastics Review of Systems: Do [...] and written informed consent has been obtained. 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 Last [...] Body mass index is 44.95 kg/m . [facility] General Plastics Review of Systems: Do [...] has been obtained. documented in this encounter [facility] 11-06-2022 History of Present illness Narrative [...] and right flank/trunk. 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 Last [...] and written informed consent has been obtained. 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 Last [...] Body mass index is 44.95 kg/m . [facility] General Plastics Review of Systems: Do [...] has been obtained. documented in this encounter [facility] 10-02-2022 History of Present illness Narrative [...] insurance approval process. documented in this encounter [facility] 05-02-2022 History of Present illness Narrative Patient offered a medical program developer for sensitive exam. Pt declined documented in this encounter [facility] 04-25-2022 Note HNO ID: [id number] Author: Jasper Lopez II, OD Service: ? Author Type: DIPPER MACHINE OPERATOR Type: Progress Notes Filed: 04/25/2022 3:21 PM [...] its relevant components. 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 Unspecified hypertrophic and atrophic condition of skin [facility] Diagnosis 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 Unspecified hypertrophic and atrophic condition of skin [facility] Diagnosis 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 note* Diagnosis SHERIE (stress urinary incontinence, female)- Primary documented in this encounter 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 [D22.30] Fibroepithelial polyp [L91.8] Procedures ME EXC SKIN BENIG 0.6-1CM FACE,FACIAL ME LAYR CLOS WND FACE,FACIAL </= 2.5CM ME EXC SKIN BENIG 1.1-2CM TRUNK,ARM,LEG ME LAYR CLOS WND TRUNK,ARM,LEG </= 2.5CM EXCISION LESION SKIN EAR EYELID FACE LIP NOSE REPAIR WOUND INTERMEDIATE EAR EYELID FACE LIP NOSE EXCISION LESION SKIN TRUNK REPAIR WOUND INTERMEDIATE AXILLAE TRUNK Mika Roy DO [address] [place] [address] Referral ID Status Reason Start Date Expiration Date Visits Re quested Visits Authorized [id number] 10/02/2022 1 1 [facility] Summary Purpose Family History No Family History Records FoundNo Family History Records FoundNo Family History Records FoundNo Family History Records FoundNo Family History Records FoundNo Family History Records FoundNo Family History Records FoundNo Family History Records FoundNo Family History Records FoundNo Family History Records Found Advance Directives Documents on File Type Date Recorded 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 [address] Referral ID Status Reason Start Date Expiration Date V isits Requested Visits Authorized [id number] New Request 05/02/2023 05/26/2024 1 1 Additional Source Comments INFORMATION SOURCE (unrecogn ized section and content) DATE CREATED AUTHOR AUTHOR'S ORGANIZ ATION 04/14/2020 [facility] DATE CREATED AUTHOR AUTHOR'S ORGANIZ ATION 06/18/2020 [facility] DATE CREATED AUTHOR AUTHOR'S ORGANIZ ATION 06/20/2020 [facility] DATE CREATED AUTHOR AUTHOR'S ORGANIZ ATION 04/26/2022 [facility] DATE CREATED AUTHOR AUTHOR'S ORGANIZ ATION 05/07/2022 [facility] DATE CREATED AUTHOR AUTHOR'S ORGANIZ ATION 12/19/2022 [facility] DATE CREATED AUTHOR AUTHOR'S ORGANIZ ATION 01/22/2023 [facility] DATE CREATED AUTHOR AUTHOR'S ORGANIZ ATION 06/04/2023 [facility] DATE CREATED AUTHOR AUTHOR'S ORGANIZ ATION 06/30/2023 [facility] Source Comments (unrecognize d section and content) In the event this informatio n is protected by the Federal Confidentiality of Alcohol and Drug Abuse Patient Records regulations: The Federal rules restrict any use of the information to criminally investigate or prosecute any alcohol or drug abuse patient. Reason for Visit (unrecogniz ed section and content) Specialty Diagnoses / Procedures Referred By Ede baxter Referred To Contact Diagnoses Visit for screening mammogram Procedures MAMMO SCREENING WITH ISAAC BILATERAL MAMMO SCREENING BILATERAL Mammography-Cecy, Self-Requested [address] [place] [address] Referral ID Status Reason Start Date Expiration Date V isits Requested Visits Authorized [id number] New Request 04/21/2022 05/16/2023 1 1 Reason Comments New Patient Lesion of left upper lip and left hip Specialty Diagnoses / Procedures Referred By Ede baxter Referred To Contact Plastic Surgery Diagnoses Neoplasm of uncertain behavior of skin of face Autumn Rosas MD [address] [place] [address] Mika Roy DO [address] [place] [address] Referral ID Status Reason Start Date Expiration Date V isits Requested Visits Authorized [id number] Pending Review 09/28/2022 10/23/2023 1 1 Reason Comments Pre-op Exam Pre-op Reason Comments Post Op Visit Post op Specialty Diagnoses / Procedures Referred By Ede baxter Referred To Contact Diagnoses Visit for screening mammogram Procedures MAMMO SCREENING WITH ISAAC BILATERAL Mammography-Cecy, Self-Requested [address] [place] [address] Referral ID Status Reason Start Date Expiration Date V isits Requested Visits Authorized [id number] New Request 05/02/2023 05/26/2024 1 1 Reason Comments Pelvic Floor Specialty Diagnoses / Procedures Referred By Ede baxter Referred To Contact Rehabilitation Diagnoses Urinary incontinence, unspecified type Sylwia Salinas, STEAM SETTER [address] [place] [address] [facility] [address] [place] [address] Referral ID Status Reason Start Date Expiration Date V isits Requested Visits Authorized [id number] Authorized 05/15/2023 05/14/2024 5 5 Specialty Diagnoses / Procedures Referred By Contac t Referred To Contact Rehabilitation Diagnoses Urinary incontinence, unspecified type Sylwia Salinas, STEAM SETTER [address] [place] [address] [facility] [address] [place] [address] Care Teams (unrecognized sec tion and content) Auto Wrecker Relationship Specialty Start Date End Date Shila Quintanilla RN Registered Nurse 07/02/20 Auto Wrecker Relationship Specialty Start Date End Date Autumn Rosas MD [address] [place] [phone] PCP - General Family Medicine 10/02/22 Shila Quintanilla, RN Registered Nurse 07/02/20 Auto Wrecker Relationship Specialty Start Date End Date Autumn Rosas MD [address] [place] [phone] PCP - General Family Medicine 10/02/22 Shila Quintanilla, RN Registered Nurse 07/02/20 Auto Wrecker Relationship Specialty Start Date End Date Autumn Rosas MD [address] [place] [phone] PCP - General Family Medicine 10/02/22 Shila Quintanilla, RN Registered Nurse 07/02/20 Auto Wrecker Relationship Specialty Start Date End Date Autumn Rosas MD PCP - General Family Medicine 10/02/22 Shila Quintanilla, RN Registered Nurse 07/02/20 [facility] Other [address] [place] [address] Obstetrics & Gynecology 05/02/23 Auto Wrecker Relationship Specialty Start Date End Date Autumn Rosas MD PCP - General 02/12/12 Jenaro Zimmerman CNP [address] [place] [address] Referring Physician Nurse Practitioner 06/17/20 Auto Wrecker Relationship Specialty Start Date End Date Autumn Rosas MD [address] [place] [address] PCP - General 02/12/12 Jenaro Zimmerman CNP [address] [place] [address] Referring Physician Nurse Practitioner 06/17/20 Auto Wrecker Relationship Specialty Start Date End Date Autumn Rosas MD [address] [place] [address] PCP - General 02/12/12 Jenaro Zimmerman CNP [address] [place] [address] Referring Physician Nurse Practitioner 06/17/20 Auto Wrecker Relationship Specialty Start Date End Date Autumn Rosas MD [address] [place] [address] PCP - General 02/12/12 Jenaro Zimmerman CNP [address] [place] [address] Referring Physician Nurse Practitioner 06/17/20 PRN Active [...] BE BASED ON THE PRIMARY CLINICAL RECORDS. [facility] [employer] [facility]. provides no warranty or guarantee of the accuracy or completeness of information in this document.
[2024-01-04 08:17] LABS: ALB/GLOB Ratio 0.8 RATIO (0.9-2.4); AST(SGOT) 28 U/L (15-37); Alanine Aminotransfer ALT/SGPT 38 U/L (13-56); Albumin, Serum 3.3 g/dL (3.2-5.0); Alkaline Phosphatase 81 U/L (45-117); Anion Gap 7 (5-15); BUN 15 mg/dL (7-18); BUN/Creat Ratio 16.2 RATIO (10-20); Calcium,Total 9.6 mg/dL (8.5-10.1); Chloride 106 mmol/L (98-107); Cholesterol 177 mg/dL (200); Creatinine, Serum 0.93 mg/dL (0.55-1.02); EST Glomerular Filtration Rate 67 mL/min (>60); Est Glom Filt Rate - Afr Amer 81 mL/min (>60); Globulin 4.1 g/dL (2.2-4.2); Glucose 114 mg/dL (74-106); High Density Lipoprotein 41 mg/dL; Potassium 4.2 mmol/L (3.5-5.1); Protein, Total 7.4 g/dL (6.4-8.2); Sodium Level 138 mmol/L (136-145); Thyroid Stim Hormone (TSH) 2.97 uIU/mL (0.358-3.74); Triglycerides 311 mg/dL; Very Low Density Lipoprotein 62 mg/dL (5-40)
== END | disposition home or self-care (01) ==
LOC: LAB 06:16
PROVIDERS: PCP Internal Medicine; Referring Provider Internal Medicine; Visit Provider Internal Medicine
DX: I10 Essential (primary) hypertension (principal); E03.9 Hypothyroidism, unspecified
CPT/HCPCS: 80053; 80061; 84443

== ENCOUNTER → 2024-01-24 | Outpatient (CLI) | payer OTHER, SELFPAY | END | disposition home or self-care (01) | LOC: SL 08:24 | PROVIDERS: PCP Internal Medicine; Referring Provider Internal Medicine; Visit Provider Internal Medicine | DX: G47.10 Hypersomnia, unspecified (principal) | CPT/HCPCS: 95806 ==

== ENCOUNTER → 2024-03-18 | Outpatient (CLI) | payer OTHER, SELFPAY | END | disposition home or self-care (01) | PROVIDERS: PCP Internal Medicine; Referring Provider Internal Medicine; Visit Provider Internal Medicine | DX: G47.10 Hypersomnia, unspecified (principal); G47.33 Obstructive sleep apnea (adult) (pediatric) | CPT/HCPCS: 95811 ==

== ENCOUNTER → 2024-06-02 | Outpatient (CLI) | payer OTHER, SELFPAY ==
[2024-06-02 17:03] LABS: Hemoglobin A1c 5.8 % (3.8-5.6)
[2024-06-02 19:32] LABS: Anion Gap 6 (5-15); BUN 18 mg/dL (7-18); BUN/Creat Ratio 20.6 RATIO (10-20); Calcium,Total 9.6 mg/dL (8.5-10.1); Chloride 103 mmol/L (98-107); Creatinine, Serum 0.87 mg/dL (0.55-1.02); EST Glomerular Filtration Rate 71 mL/min (>60); Est Glom Filt Rate - Afr Amer 86 mL/min (>60); Glucose 90 mg/dL (74-106); Potassium 4.1 mmol/L (3.5-5.1); Sodium Level 138 mmol/L (136-145)
== END | disposition home or self-care (01) ==
LOC: BIMLAB 15:55
PROVIDERS: PCP Internal Medicine; Referring Provider Internal Medicine; Visit Provider Internal Medicine
DX: R73.9 Hyperglycemia, unspecified (principal); I10 Essential (primary) hypertension
CPT/HCPCS: 36415; 80048; 83036

== ENCOUNTER → 2024-09-04 | Outpatient (CLI) | payer OTHER, SELFPAY ==
[2024-09-04 17:11] LABS: Anion Gap 5 (5-15); BUN 21 mg/dL (7-18); BUN/Creat Ratio 22.3 RATIO (10-20); Calcium,Total 9.4 mg/dL (8.5-10.1); Chloride 104 mmol/L (98-107); Creatinine, Serum 0.94 mg/dL (0.55-1.02); EST Glomerular Filtration Rate 65 mL/min (>60); Est Glom Filt Rate - Afr Amer 79 mL/min (>60); Glucose 122 mg/dL (74-106); Potassium 4.3 mmol/L (3.5-5.1); Sodium Level 138 mmol/L (136-145)
[2024-09-04 18:58] LABS: Hemoglobin A1c 5.8 % (3.8-5.6)
== END | disposition home or self-care (01) ==
LOC: BIMLAB 15:10
PROVIDERS: PCP Internal Medicine; Referring Provider Internal Medicine; Visit Provider Internal Medicine
DX: R73.03 Prediabetes (principal); I10 Essential (primary) hypertension; E03.9 Hypothyroidism, unspecified
CPT/HCPCS: 36415; 80048; 83036; 84443

== ENCOUNTER → 2024-12-12 | Outpatient (CLI) | payer OTHER, SELFPAY ==
[2024-12-12 15:51] LABS: Anion Gap 7 (5-15); BUN 15 mg/dL (7-18); BUN/Creat Ratio 16.6 RATIO (10-20); Calcium,Total 9.4 mg/dL (8.5-10.1); Chloride 104 mmol/L (98-107); Cholesterol 179 mg/dL (200); EST Glomerular Filtration Rate 69 mL/min (>60); Est Glom Filt Rate - Afr Amer 83 mL/min (>60); Glucose 93 mg/dL (74-106); High Density Lipoprotein 45 mg/dL; Potassium 4.2 mmol/L (3.5-5.1); Sodium Level 138 mmol/L (136-145); Triglycerides 319 mg/dL; Very Low Density Lipoprotein 64 mg/dL (5-40)
== END | disposition home or self-care (01) ==
LOC: BIMLAB 11:48
PROVIDERS: PCP Internal Medicine; Referring Provider Internal Medicine; Visit Provider Internal Medicine
DX: E03.9 Hypothyroidism, unspecified (principal); I10 Essential (primary) hypertension
CPT/HCPCS: 36415; 80048; 80061; 84443

== ENCOUNTER → 2025-03-13 | Outpatient (CLI) | payer OTHER, SELFPAY ==
[2025-03-13 17:08] LABS: Absolute Neutrophil Count 4.7 X10^3/uL (2.0-7.7); Basophil# 0.05 X10^3/uL; Basophil% 0.6 % (0-1); Eosinophil# 0.19 X10^3/uL; Eosinophils% 2.3 % (0-5); Hematocrit 37.1 % (37-47); Hemoglobin 12.9 g/dL (12.0-15.0); Lymphocyte % 31.3 % (19-41); Mean Corp Hgb Conc 34.8 g/dL (32-36); Mean Corpuscular Hgb 32.3 pg (27.0-32.0); Mean Corpuscular Volume 92.8 fL (81-99); Mean Platelet Vol. 10.8 fl (6.2-12.0); Monocyte# 0.71 X10^3/uL; Monocyte% 8.5 % (0-10); NRBC Flagged by Analyzer 0 % (0-5); Neutrophil # 4.74 X10^3/uL (2.7-7.7); Neutrophil % 56.9 % (47-70); Platelet Count 292 K/mm3 (150-450); RBC Distribution Width CV 11.6 % (11.6-14.6); RBC Distribution Width SD 39.1 fl (35.1-43.9); White Blood Count 8.3 K/mm3 (4.4-11.0)
[2025-03-13 17:23] LABS: ALB/GLOB Ratio 1.5 RATIO (0.9-2.4); AST(SGOT) 16 U/L (<=31); Alanine Aminotransfer ALT/SGPT 18 U/L (<=34); Albumin, Serum 4.2 g/dL (3.5-5.0); Alkaline Phosphatase 76 U/L (35-104); Anion Gap 12 (5-15); BUN 17 mg/dL (4-19); BUN/Creat Ratio 20.7 RATIO (10-20); Calcium,Total 9.5 mg/dL (7.6-11.0); Carbon Dioxide 23.3 mmol/L (21.0-32.0); Chloride 102 mmol/L (98-108); Creatinine, Serum 0.81 mg/dL (0.70-1.20); EST Glomerular Filtration Rate 85 (>60); Globulin 2.9 g/dL (2.2-4.2); Glucose 91 mg/dL (70-99); Protein, Total 7.1 g/dL (5.9-8.4); Sodium Level 138 mmol/L (133-145)
== END | disposition home or self-care (01) ==
LOC: BIMLAB 15:53
PROVIDERS: PCP Internal Medicine; Referring Provider Internal Medicine; Visit Provider Internal Medicine
DX: R73.03 Prediabetes (principal); E66.01 Morbid (severe) obesity due to excess calories; E66.813 Obesity, class 3; Z68.42 Body mass index [BMI] 45.0-49.9, adult
CPT/HCPCS: 36415; 80053; 85025

== ENCOUNTER → 2025-06-25 | Outpatient (CLI) | payer OTHER, SELFPAY ==
[2025-06-27 08:09] LABS: Mumps Antibody,IgG 255.0 AU/mL (Immune >10.9)
== END | disposition home or self-care (01) ==
PROVIDERS: PCP Internal Medicine; Referring Provider Internal Medicine; Visit Provider Internal Medicine
DX: Z01.84 Encounter for antibody response examination (principal)
CPT/HCPCS: 36415; 86735; 86762; 86765

== ENCOUNTER → 2025-07-01 | Outpatient (CLI) | payer OTHER, SELFPAY ==
--- NOTE | 2025-07-01 07:55 | EKG12_ITS ---
Test Reason : HTN Blood Pressure : */* mmHG Vent. Rate : 64 BPM Atrial Rate : 64 BPM P-R Int : 138 ms QRS Dur : 86 ms QT Int : 430 ms P-R-T Axes : 17 33 31 degrees QTcB Int : 443 ms Normal sinus rhythm Normal ECG Confirmed by Juan F Rodney ([id number]), newspaper copy editor CASI SCHWARZ ([id number]) on 07/01/2025 1:19:07 PM Referred By: Pradip Keane Confirmed By: Juan F Rodney
--- NOTE | 2025-07-01 07:56 | RAD_ITS ---
PROCEDURE: SHOULDER MIN 2 VIEWS 07/01/2025 REASON FOR EXAM: LEFT SHOULDER PAIN TECHNIQUE: Procedure Code: RADSH Modality: DX Procedure: SHOULDER MIN 2 VIEWS Laterality: Left COMPARISON: None FINDINGS: Osseous: Glenohumeral alignment is anatomic. The humeral head is concentric without evidence of a Hill-Sachs deformity. No bony Bankart lesion is seen. Acromioclavicular spacing and alignment are maintained. Soft tissues: No evidence of calcific tendinitis. Soft tissue injury is not reliably assessed by this technique. RAD/Shoulder min 2 Views IMPRESSION: No radiographic evidence of an acute osseous injury at the left shoulder. - Findings discussed above. Reading Location: [id number]
--- OUTSIDE RECORDS SUMMARY | 2025-07-01 08:05 | XMS RPT_ITS | CCD ---
Author Organization [facility] Care Team Providers Care Finishing Wire Sawyer Name Role Phone Autumn Rosas Unavailable Unavailable Autumn Rosas Unavailable Unavailable Autumn Rosas Unavailable Unavailable Autumn Rosas Unavailable Unavailable Autumn Rosas Unavailable Unavailable Autumn Rosas Unavailable Unavailable ISAIAS TORRES Attending Unavailable AUTUMN ROSAS Primary Care Unavailable YUSEF LOTT Attending Unavailable Autumn Rosas Primary Care Provider [...] Unavaila ble AUTUMN ROSAS Primary Care Unavailable Mansi Parikh Unavailable Auutmn Rosas Primary Care Provider Socorro IZQUIERDO, Shila Unavailable Unavailable Socorro IZQUIERDO, Shila Unavailable Unavailable Autumn Rosas MD Primary Care Provider AUTUMN ROSAS Referring Unavailable JAY ROY Attending Unavailable AUTUMN ROSAS Primary Care Unavailable AUTUMN ROSAS Referring Unavailable JAY ROY Attending Unavailable AUTUMN ROSAS Primary Care Unavailable JAY ROY Admitting Unavailable JAY ROY Attending Unavailable JAY ROY Referring Unavailable AUTUMN ROSAS Primary Care Unavailable JAY ROY Attending Unavailable AUTUMN ROSAS Primary Care Unavailable AUTUMN ROSAS Referring Unavailable Ralph, Dr. Autumn Paiz Attending Unavaila randy Rosas, Dr. Autumn Paiz Primary Care Unavailamanda Quintanilla RN, Shila Unavailable Unavailable Autumn Rosas MD Primary Care Provider [facility] Other Unavailable [phone] SINDY CAPUTO, KRISTEN Hein Consulting Unavailable RALPH CAPUTO, DR~[id number] AUTUMN Primary Care Unavailable STINEMJINA, DUSTIN Kumar Admitting Unavailable STINEMETZ, DUSTIN Kumar Attending Unavailable SINDY CAPUTO, KRISTEN Hein Consulting Unavailable STINEMETZ, DUSTIN Kumar Consulting Unavailable STINEMJINA, DUSTIN Kumar Consulting Unavailable RALPH CAPUTO, DR~[id number] AUTUMN Consulting Unavailable RALPH CAPUTO, DR LEYVA Consulting Unavailable Autumn Rosas MD Primary Care Provider Erasmo CNP, Jenaro Unavailable Autumn Rosas MD Primary Care Provider BRAD, STEPHANIE J Admitting Unavailable BRAD, STEPHANIE J Referring Unavailable MEGAN HIDALGO Attending Unavailable AUTUMN ROSAS Primary Care Unavailable AUTUMN ROSAS Primary Care Unavailable BRAD, STEPHANIE J Admitting Unavailable BRAD, STEPHANIE J Referring Unavailable MEGAN HIDALGO Attending Unavailable AUTUMN ROSAS Primary Care Unavailable BRAD, STEPHANIE Kumar Admitting Unavailable BRAD, STEPHANIE Kumar Referring Unavailable MEGAN HIDALGO Attending Unavailable Dr. Autumn Rosas Primary Care Provider Dr. Autumn Rosas Referring Provider Dr. Martin Keane Attending Provider Dr. Autumn Rosas Primary Care Provider Dr. Autumn Rosas Referring Provider [phone] Dr. Martin Keane Attending Provider Jl CAPUTO, Mansi Unavailable Martin Keane MD Primary Care Provider [phone] Autumn Rosas MD Primary Care Provider LAKHWINDER, EFEWONGBE B Primary Care Unavailable COOPERRIDER II, EMORY H Referring Unavailabl e COOPERRIDER II, EMORY H Attending Unavailabl e OLEGHE, EFEWONGBE B Primary Care Unavailable COOPERRIDER II, EMORY H Attending Unavaildewayne Keane MD, Dr. Moseley Primary Care Provider Lakhwinder CAPUTO, Dr. Moseley Attending Provider [phone] Lakhwinder CAPUTO, Dr. Moseley Referring Provider [phone] Autumn Rosas MD Primary Care Provider MAMMOGRAPHY-CECY, SELF-REQUESTED Referring Unavailable AUTUMN ROSAS Attending Unavailable AUTUMN ROSAS Primary Care Unavailable Lakhwinder CAPUTO, Dr. Moseley Primary Care Provider Lakhwinder CAPUTO, Dr. Moseley Attending Provider [phone] Lakhwinder CAPUTO, Dr. Moseley Referring Provider [phone] Oleghe, Efewongbe Referring Unavailable Oleghe, Efewongbe Primary Care Unavailable Oleghe, Efewongbe Attending Unavailable Oleghe, Efewongbe Referring Unavailable Oleghe, Efewongbe Primary Care Unavailable Oleghe, Efewongbe Attending Unavailable Oleghe, Efewongbe Primary Care Unavailable Oleghe, Efewongbe Attending Unavailable Oleghe, Efewongbe Referring Unavailable Oleghe, Efewongbe Referring Unavailable Oleghe, Efewongbe Attending Unavailable Oleghe, Efewongbe Primary Care Unavailable Oleghe, Efewongbe Primary Care Unavailable Oleghe, Efewongbe Attending Unavailable Oleghe, Efewongbe Referring Unavailable Oleghe, Efewongbe Primary Care Unavailable Oleghe, Efewongbe Attending Unavailable Oleghe, Efewongbe Referring Unavailable Oleghe, Efewongbe Primary Care Unavailable Oleghe, Efewongbe Attending Unavailable Oleghe, Efewongbe Referring Unavailable Oleghe, Efewongbe Primary Care Unavailable Martin Keane Attending Unavailable Martin Keane Referring Unavailable Martin Keane Primary Care Unavailable Martin Keane Attending Unavailable Martin Keane Referring Unavailable Allergies Allergy Classification Reported Allergen(s) Allergy Type Date of Onset Reaction(s) Facility Acetaminophen / HYDROcodone (1 source) Acetaminophen / HYDROcodone Drug Allergy 0 Nausea and Vomiting [facility] (1 source) acetaminophen / HYDROcodone; Translations: [Vicodin] Drug Allergy [facility] (15 sources) Acetaminophen / HYDROcodone; Translations: [HYDROCODONE-ACET AMINOPHEN] Drug Allergy 0 [facility]iting[facility] Codeine Drug Allergy 0 Nausea and Vomiting [facility] (5 sources) Latex; Translations: [LATEX] Propensity to adverse reactions to drug [address] [facility] Medications Current Medications Medication Drug Class(es) Dates Sig (Normalized) Sig (Original) Dupilumab (3 sources) Start: 5 Dupilumab (Dupixent Pen) 200 mg/1.14 mL pen injector Active 200 mg SC every 2 weeks December 12, 2024 1:00am hydroCHLOROthiazide 25 mg oral tablet (20 sources) Thiazide Diuretic Start: 4 End: take 1 tablet by mouth once daily Hydrochlorothiazide 25 mg tablet Active 25 mg PO DAILY 90 May 22, 2025 5:14pm Start: 12-12-2023 End: 04-17-2024 take 1 tablet by mouth once daily Hydrochlorothiazide 12.5 mg tablet Discontinued 12.5 mg PO DAILY 90 March 17, 2024 1:09pm April 17, 2024 3:25pm Start: 12-12-2023 End: 12-12-2023 Hydrochlorothiazide Disconti nued MG PO December 12, 2023 1:00am December 12, 2023 7:13pm levothyroxine sodium 0.175 mg oral tablet (20 sources) l-Thyroxine Start: 12-12-2023 End: 05-25-2025 take 1 tablet by mouth once daily Levothyroxine 175 mcg tablet Active 175 ug PO DAILY 90 May 25, 2025 5:53pm Start: 12-12-2023 End: 12-12-2023 Levothyroxine 175 mcg tablet Discontinued ug PO December 12, 2023 1:00am December 12, 2023 7:13pm Start: 12-12-2023 End: 12-12-2023 Levothyroxine Discontinued M CG PO December 12, 2023 1:00am December 12, 2023 7:13pm Start: 12-12-2023 End: 12-12-2023 Levothyroxine Discontinued M CG PO December 12, 2023 12:00am December 12, 2023 6:13pm Start: 02-27-2017 levothyroxine (SYNTHROID) 125 mcg tablet Start: 03-17-2015 levothyroxine (SYNTHROID) 100 mcg tablet levothyroxine 12 5 MCG tablet Take 175 mcg by mouth daily. Per patient now taking 175 mcg once daily Active take 1 tablet by once daily levothyroxine (SYNTHROID, LEVOTHROID) 150 MCG tablet Take 1 (one) tablet (150 mcg total) by mouth once daily . 0 Active levothyroxine 12 5 MCG tablet Take 150 mcg by mouth daily. 0 Active Multiple Vitamins-Minerals ( WOMENS MULTIVITAMIN PO) (8 sources) Multiple Vitamin s-Minerals (WOMENS MULTIVITAMIN PO) Take by mouth daily. Active Multiple Vitamin s-Minerals (WOMENS MULTIVITAMIN PO) Take by mouth daily. 0 Active olmesartan medoxomil 20 mg oral tablet (10 sources) Angiotensin 2 Receptor Agnes Start: 06-02-2024 End: 05-25-2025 take 1 tablet by mouth once daily Olmesartan 20 mg tablet Active 20 mg PO DAILY 90 May 25, 2025 5:52pm PARoxetine hydrochloride 20 mg oral tablet (20 sources) Serotonin Reuptake Inhibitor Start: 12-16-2024 End: 06-11-2025 take 1 tablet by mouth once daily Paroxetine Hcl 20 mg tablet Active 20 mg PO DAILY 90 June 11, 2025 3:56pm Start: 12-12-2024 End: 12-16-2024 take 1 tablet by mouth once daily Paroxetine Hcl 10 mg tablet Discontinued 10 mg PO DAILY 90 December 12, 2024 12:30pm December 16, 2024 11:37am Start: 12-12-2023 End: 12-12-2023 Paroxetine Hcl Discontinued MG PO December 12, 2023 1:00am December 12, 2023 7:13pm Start: 09-01-2021 End: 12-12-2024 take 1 tablet by mouth once daily Paroxetine Hcl 20 mg tablet Discontinued 20 mg PO DAILY 90 October 30, 2024 11:34am December 12, 2024 12:31pm Comment on above: Take 20 mg by mouth. Semaglutide (Weight Loss) (1 source) Start: 06-19-2025 Semaglutide (Weight Loss) (Wegovy) 1 mg/0.5 mL pen injector Active 1 mg SC Q7D 2 June 19, 2025 12:00am tropicamide 5 mg/ml ophthalmic solution (3 sources) Anticholinergic Start: 05-07-2024 End: 05-08-2024 tropicamide 0.5 % 1 Drop (MYDRIACYL) Start: 04-25-2022 End: 04-26-2022 tropicamide 0.5 % 1 Drop (MY DRIACYL) Completed/Discontinued Medications Medication Drug Class(es) Dates Sig (Normalized) Sig (Original) amLODIPine 5 mg oral tablet (20 sources) Dihydropyridine Calcium Channel Agnes Start: 04-17-2024 End: 06-02-2024 take 1 tablet by mouth once daily Amlodipine 5 mg tablet Discontinued 5 mg PO DAILY 90 1 April 17, 2024 3:24pm June 02, 2024 3:40pm Start: 12-12-2023 End: 04-17-2024 take 1 tablet by mouth once daily Amlodipine 10 mg tablet Discontinued 10 mg PO DAILY 90 March 17, 2024 1:09pm April 17, 2024 3:25pm Start: 12-12-2023 End: 12-12-2023 Amlodipine Discontinued MG P O December 12, 2023 1:00am December 12, 2023 7:13pm take 2 tablets by mo uth once daily amLODIPine 5 MG tablet Take 2 tablets by mouth daily. Active take 1 tablet by mohsen th once daily amLODIPine (NORVASC) 10 MG tablet Take 1 (one) tablet (10 mg total) by mouth daily . 0 Active Comment on above: Take 10 mg by mouth once daily. EPINEPHrine 0.01 mg/ml / lidocaine hydrochloride 10 mg/ml injectable solution (1 source) Antiarrhythmic, alpha-Adrenergic Agonist, beta-Adrenergic Agonist, Catecholamine, Amide Local Anesthetic Start: 11-10-2022 End: 11-10-2022 lidocaine-epinephrine 1%-[id number] injection erythromycin 0.005 mg/mg ophthalmic ointment (1 source) Macrolide, Macrolide Antimicrobial Start: 04-05-2020 End: 04-25-2022 erythromycin ophthalmic ointment Use 1 application in both eyes four times daily. 0 04/05/2020 04/25/2022 Discontinued (Course of therapy completed) Comment on above: Use 1 application in both eyes four times daily. Tirzepatide (Weight Loss) (15 sources) Start: 05-05-2025 End: 06-19-2025 Tirzepatide (Weight Loss) 5 mg/0.5 mL pen injector Discontinued 5 mg SC EVERY WEEK 2 3 May 05, 2025 4:01pm June 19, 2025 2:12pm Start: 03-13-2025 End: 05-05-2025 Tirzepatide (Weight Loss) 5 mg/0.5 mL pen injector Discontinued 5 mg SC EVERY WEEK 2 3 March 13, 2025 4:06pm May 05, 2025 4:02pm Start: 03-13-2025 Tirzepatide (W eight Loss) 5 mg/0.5 mL pen injector Active 5 mg SC EVERY WEEK 2 March 13, 2025 4:06pm Start: 01-15-2025 End: 03-13-2025 Tirzepatide (Weight Loss) 5 mg/0.5 mL pen injector Discontinued 5 mg SC EVERY WEEK 2 2 January 15, 2025 9:52pm March 13, 2025 4:07pm for 4 weeks Start: 01-15-2025 End: 03-13-2025 Tirzepatide (Weight Loss) 5 mg/0.5 mL pen injector Discontinued 5 mg SC EVERY WEEK 2 January 15, 2025 9:52pm March 13, 2025 4:07pm for 4 weeks Start: 01-15-2025 Tirzepatide (W eight Loss) 5 mg/0.5 mL pen injector Active 5 mg SC EVERY WEEK 2 January 15, 2025 9:52pm for 4 weeks Start: 01-15-2025 End: 01-15-2025 Tirzepatide (Weight Loss) 5 mg/0.5 mL pen injector Discontinued 5 mg SC EVERY WEEK 2 2 January 15, 2025 9:52pm January 15, 2025 9:53pm for 4 weeks Start: 01-15-2025 End: 01-15-2025 Tirzepatide (Weight Loss) 5 mg/0.5 mL pen injector Discontinued 5 mg SC EVERY WEEK 2 January 15, 2025 9:52pm January 15, 2025 9:53pm for 4 weeks Start: 01-07-2025 End: 01-15-2025 Tirzepatide (Weight Loss) 5 mg/0.5 mL pen injector Discontinued 5 mg SC EVERY WEEK 2 2 January 07, 2025 9:51pm January 15, 2025 9:52pm for 4 weeks Start: 01-07-2025 End: 01-15-2025 Tirzepatide (Weight Loss) 5 mg/0.5 mL pen injector Discontinued 5 mg SC EVERY WEEK 2 January 07, 2025 9:51pm January 15, 2025 9:52pm for 4 weeks Start: 01-07-2025 End: 01-07-2025 Tirzepatide (Weight Loss) 5 mg/0.5 mL pen injector Discontinued 5 mg SC EVERY WEEK 2 January 07, 2025 9:50pm January 07, 2025 9:52pm for 4 weeks Start: 01-07-2025 End: 01-07-2025 Tirzepatide (Weight Loss) 5 mg/0.5 mL pen injector Discontinued 5 mg SC EVERY WEEK 2 January 07, 2025 9:50pm January 07, 2025 9:52pm for 4 weeks Tirzepatide (Weight Loss) (3 sources) Start: 12-12-2024 End: 01-07-2025 Tirzepatide (Weight Loss) (Z epbound) 2.5 mg/0.5 mL pen injector Discontinued 2.5 mg SC EVERY WEEK 2 December 12, 2024 1:00am January 07, 2025 9:51pm for 4 weeks Start: 12-12-2024 End: 01-07-2025 Tirzepatide (Weight Loss) (Z epbound) 2.5 mg/0.5 mL pen injector Discontinued 2.5 mg SC EVERY WEEK 2 December 12, 2024 1:00am January 07, 2025 9:51pm for 4 weeks Tirzepatide (Weight Loss) (1 source) Start: 05-25-2025 End: 06-19-2025 Tirzepatide (Weight Loss) (Z epbound) 5 mg/0.5 mL solution Discontinued 5 mg SC EVERY WEEK 2 May 25, 2025 12:00am June 19, 2025 2:12pm Problems Active Problems Problem Classification Problem Date Documented Date Episodic/Chronic Allergic reactions (5 sources) Inflammatory dermatosis; Translations: [Dermatitis, unspecified] 12-12-2024 Episodic Anxiety disorders (15 sources) Mixed anxiety and depressive disorder; Translations: [Anxiety disorder, unspecified] 12-12-2023 Chronic Blindness and vision defects (13 sources) Bilateral hyperopia of eyes; Translations: [Hypermetropia, bilateral] Onset: 04-08-2015 Episodic Diabetes mellitus without complication (13 sources) Hyperglycemia; Translations: [Hyperglycemia, unspecified] Onset: 06-19-2025 01-04-2024 Episodic Essential hypertension (17 sources) Hypertensive disorder; Translations: [Essential (primary) hypertension] Onset: 06-19-2025 12-12-2023 Chronic Genitourinary symptoms and ill-defined conditions (15 sources) Urinary incontinence; Translations: [Unspecified urinary incontinence] Onset: 06-11-2023 06-11-2023 Chronic Menstrual disorders (3 sources) Irregular periods; Translations: [Irregular menstruation, unspecified] 04-17-2024 Chronic Other and unspecified benign neoplasm (1 [...] Translations: [ENTHESOPATHY UNSPECIFIED] Onset: 06-04-2023 Episodic Other diseases of veins and lymphatics (5 sources) Venous insufficiency of leg; Translations: [Venous insufficiency (chronic) (peripheral)] 04-17-2024 Episodic Other eye disorders (2 sources) Bilateral vitreous floaters; Translations: [Other vitreous opacities, bilateral] Chronic Other eye disorders (1 source) Optic disc cup finding; Translations: [Other disorders of optic disc, bilateral] 05-07-2024 Chronic Other lower respiratory disease (4 sources) Dyspnea, unspecified; Translations: [Dyspnea, unspecified] Onset: 01-19-2023 Episodic Other non-traumatic joint disorders (2 sources) Pain in left shoulder; Translations: [Left shoulder pain] Onset: 06-19-2025 06-19-2025 Episodic Other nutritional; endocrine; and metabolic disorders (7 sources) Metabolic syndrome X; Translations: [Metabolic syndrome] 12-12-2024 Chronic Other nutritional; endocrine; and metabolic disorders (7 sources) Obesity; Translations: [Obesity, unspecified] 09-04-2024 Chronic Other nutritional; endocrine; and metabolic disorders (1 source) Morbid (severe) obesity due to excess calories; Translations: [Morbid (severe) obesity due to excess calories] Onset: 03-13-2025 Chronic Other nutritional; endocrine; and metabolic disorders (1 source) Body mass index (BMI) 45.0-49.9, adult; Translations: [Body mass index [BMI] 45.0-49.9, adult] Onset: 03-13-2025 Chronic Other screening for suspected conditions (not mental disorders or infectious disease) (14 sources) Patient encounter status; Translations: [Encounter for screening mammogram for malignant neoplasm of breast] Onset: 05-26-2020 Episodic Other skin disorders (3 sources) Skin tag; Translations: [Other hypertrophic disorders of the skin] Episodic Other skin disorders (2 sources) Other hypertrophic disorders of the skin; Translations: [Other hypertrophic disorders of the skin] Onset: 11-10-2022 Episodic Other upper respiratory infections (11 sources) Upper respiratory infection; Translations: [Acute upper respiratory infection, unspecified] 12-12-2023 Episodic Residual codes; unclassified (7 sources) Hypersomnia; Translations: [Hypersomnia, unspecified] 12-12-2023 Chronic Residual codes; unclassified (4 sources) Hypersomnia, unspecified; Translations: [Hypersomnia, unspecified] 12-12-2023 Chronic Residual codes; unclassified (7 sources) Obstructive sleep apnea syndrome; Translations: [Obstructive sleep apnea (adult) (pediatric)] 06-02-2024 Chronic Thyroid disorders (16 sources) Hypothyroidism; Translations: [Hypothyroidism, unspecified] Onset: 12-26-2024 12-12-2023 Chronic Unclassified (1 source) Obesity, class 3; Translations: [Obesity, class 3] Onset: 03-13-2025 Past or Other Problems Problem Classification Problem Date Documented Da te Episodic/Chronic Mood disorders (8 sources) Mood disorders Onset: 01-18-2021 Resolved: 01-18-2021 01-18-2021 Unclassified (2 sources) Patient encounter status 05-27-2025 Results Test Name Value Interpretation Reference Range Facility Mumps Antibody,IgGon 025 MUMPS Ab, IgG 255.0 AU/mL Normal Immune >10.9 [facility] Comment on above: Result Comment: Nega tive <9.0 Equivocal 9.0 - 10.9 Positive >10.9 A positive result generally indicates past exposure to Mumps virus or previous vaccination. Performed By: #### L 3100.3300, L509.4006, L3400.1750 #### [facility] [address] [place], [address] Rubeola IgG Abon 06-27-2025 RUBEOLA Ab, IgG < 13.5 Low Immune >16.4 [facility] Comment on above: Result Comment: Nega tive <13.5 Equivocal 13.5 - 16.4 Positive >16.4 Presence of antibodies to Rubeola is presumptive evidence of immunity except when acute infection is suspected. Performed at: [address] [id number] Fixed Income Manager: Dhaval Hays PhD, Phone: [phone] Performed By: #### L 3100.3300, L509.4006, L3400.1750 #### [facility] [address] [place], [address] L509.4006on 06-25-2025 Rubella IgG REAC Normal Nonreactive [facility] Comment on above: Result Comment: Anti body Result: Interpretation Non-Reactive: Non-Immune Reactive: Immune The following results were obtained with the [employer] Rubella IgG assay. Results from assays of other manufacturers cannot be used interchangeably. Performed By: #### L 3100.3300, L509.4006, L3400.1750 #### [facility] [address] [place], [address] Internal Medicine Office Vis iton 06-19-2025 Internal Medicine Office Visit [facility] [address] [address] [place] [address] OFFICE VISIT Date of Service: 06/19/25 MR#: [id number] Acct: [id number] Name: LILY WAYNE Rep #: [id number] : 1970 Provider: Dr. Martin vogt MD Age/Sex: 55/F Location: [facility] Status: Signed Intake Vital Signs 03/13/25 15:24 06/19/25 13:49 Height 5 ft 7 in 5 ft 7 in Weight: 292 lb BMI 45.7 BP 136/88 H Blood Pressure Location Lt brachial Position Sitting Respiration 16 Pulse 75 Pulse Source Monitor Temp 98.8 F Temp Source Temporal Pulse Oximetry (%) 95 Oxygen Delivery Method room air Intake Visit Reasons: preventative visit Chief Complaint: Follow-up chronic conditions. Concerns. 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: No Accompanied by: Self Is patient in pain?: Yes (B/L knee) Pain scale (1-10): 2 Allergies No Known Allergies Allergy (Unverified 06/19/25 13:44) Medications ???Medication ???Instructions ???Recorded ???Confirmed ???Type dupilumab 200 mg/1.14 mL 200 mg subcut Q2W 12/12/24 5 History subcutaneous pen injector (Dupixent) hydrochlorothiazide 25 mg tablet 25 mg PO DAILY #90 tabs 05/22/25 0 06/19/25 Rx levothyroxine 175 mcg tablet 175 mcg PO DAILY #90 tabs 05/25/25 06/19/25 Rx olmesartan 20 mg tablet 20 mg PO DAILY #90 tabs 05/25/25 0 06/19/25 Rx paroxetine HCl 20 mg tablet 20 mg PO DAILY #90 tabs 06/11/25 0 06/19/25 Rx semaglutide (weight loss) 1 mg/0.5 1 mg (0.5 mL) subcut Q7D #2 mL 0 06/19/25 06/19/25 Rx mL subcutaneous pen injector (Wegovy) [facility] Medical History (Updated 06/19/25 @ 16:[address] 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 Concerns. Details: LILY WAYNE, is a 55-year-old female presenting with chronic disease management and shoulder pain. History of pre-diabetes with previous hemoglobin A1c values of 5.8 last year, 5.3, and currently at 5.2. The patient initially weighed 308 pounds in November, with a recent weight of 292 pounds. Had been on tirzepatide however following insurance formulary change, plan is to start Wegovy. The patient has been experiencing persistent shoulder pain, which began before her recent trip to [place]. She describes the pain as limiting her physical activities, particularly affecting her workout routine. The patient reports that specific movements, such as lifting weights and extended reaching, exacerbate the pain. She denies any prior traumatic incidents that might have contributed to the shoulder pain but notes it limits her engagement in certain exercises. She also reports concerns with difficulty breathing. These episodes are intermittent and typically with exertion. She is primarily concerned due to his significant family history of heart disease. No tobacco use. Reports was much worse during her recent vacation to [place]. Other chronic medical conditions are stable. Attestation: Documentation on this patient encounter was supported using ambient scribe technology/ voice AI technology. The patient consented to recording for the purpose of documenting the encounter. Provider reviewed content of the generated note prior to signature. ROS Const Constitutional: No body ache, excessive sweating, fatigue, fever(s), frequent falls, headache(s), snoring, weakness, weight change, sleep problems or change in appetite Eyes Eyes: No blurry vision, change in vision, vision loss, dry eyes, floaters, visual disturbances, eye pain or Light sensitivity ENT ENT: No abnormal hearing, ear or mastoid pain, tinnitus, balance problems, nosebleed/epistaxis, nasal congestion, headache(s), neck pain or sore throat Resp Respiratory: Positive for shortness of breath sob: SOB with activity; No cough, excessive phlegm production, pain o (more content not included)... Normal [facility] MAMMO SCREENING WITH ISAAC BI LATERALon 05-27-2025 MAMMO SCREENING WITH ISAAC BILATERAL EXAM: MAMMO SCREENING WITH ISAAC BILATERAL, 05/27/2025 12:36 PM CLINICAL INDICATIONS: Screening COMPARISON: MAMMO SCREENING WITH ISAAC BILATERAL May 08, 2024, MAMMO SCREENING WITH ISAAC BILATERAL May 03, 2023, MAMMO SCREENING WITH ISAAC BILATERAL May 02, 2022, MAMMO DIAGNOSTIC WITH ISAAC LEFT January 18, 2021, US GUIDED BIOPSY BREAST RIGHT July 02, 2020 TECHNIQUE: 3-D MLO and CC digital tomosynthesis images were obtained of the bilateral breasts. Synthetic 2-D images were generated from the tomosynthesis data. Computer aided detection was utilized. FINDINGS: Breast Density: The breasts are heterogeneously dense, which may obscure small masses. There are no suspicious masses, calcifications, or architectural distortions. IMPRESSION: No mammographic evidence of malignancy. BI-RADS: 1: Negative Recommendation: Routine mammography. Recommendation Laterality: Bilateral The current National Comprehensive Cancer Network and [employer] [place] [employer] guidelines recommend women undergo a screening mammogram every year over the age of 40 and continue mammographic screening as long as they are in good health. Screening mammography under age 40 may occur for women who are at increased risk for breast cancer. SA Facility: [facility] at [facility], [address], [place] [address], Table formatting from the original result was not included. MAMMO STANDARD RISK MQSA SITE BEGIN [facility] at [facility] [address], [place] [address] MQSA SITE END Normal [facility] MG Breast - bilateral Screen [facility] 05-27-2025 IMPRESSION: No mammographic evidence of malignancy. BI-RADS: 1: Negative Recommendation: Routine mammography. Recommendation Laterality: Bilateral The current National Comprehensive Cancer Network and [employer] [place] [employer] guidelines recommend women undergo a screening mammogram every year over the age of 40 and continue mammographic screening as long as they are in good health. Screening mammography under age 40 may occur for women who are at increased risk for breast cancer. SA Facility: [facility] at [facility], [address], [place] [address], OLOGY EXAM: MAMMO SCREENIN G WITH ISAAC BILATERAL, 05/27/2025 12:36 PM CLINICAL INDICATIONS: Screening COMPARISON: MAMMO SCREENING WITH ISAAC BILATERAL May 08, 2024, MAMMO SCREENING WITH ISAAC BILATERAL May 03, 2023, MAMMO SCREENING WITH ISAAC BILATERAL May 02, 2022, MAMMO DIAGNOSTIC WITH ISAAC LEFT January 18, 2021, US GUIDED BIOPSY BREAST RIGHT July 02, 2020 TECHNIQUE: 3-D MLO and CC digital tomosynthesis images were obtained of the bilateral breasts. Synthetic 2-D images were generated from the tomosynthesis data. Computer aided detection was utilized. FINDINGS: Breast Density: The breasts are heterogeneously dense, which may obscure small masses. There are no suspicious masses, calcifications, or architectural distortions. RADIOLOGY Quan Bell M D - 05/27/2025 EXAM: MAMMO SCREENING WITH ISAAC BILATERAL, 05/27/2025 12:36 PM CLINICAL INDICATIONS: Screening COMPARISON: MAMMO SCREENING WITH ISAAC BILATERAL May 08, 2024, MAMMO SCREENING WITH ISAAC BILATERAL May 03, 2023, MAMMO SCREENING WITH ISAAC BILATERAL May 02, 2022, MAMMO DIAGNOSTIC WITH ISAAC LEFT January 18, 2021, US GUIDED BIOPSY BREAST RIGHT July 02, 2020 TECHNIQUE: 3-D MLO and CC digital tomosynthesis images were obtained of the bilateral breasts. Synthetic 2-D images were generated from the tomosynthesis data. Computer aided detection was utilized. FINDINGS: Breast Density: The breasts are heterogeneously dense, which may obscure small masses. There are no suspicious masses, calcifications, or architectural distortions. IMPRESSION IMPRESSION: No mammographic evidence of malignancy. BI-RADS: 1: Negative Recommendation: Routine mammography. Recommendation Laterality: Bilateral The current National Comprehensive Cancer Network and [employer] [place] [employer] guidelines recommend women undergo a screening mammogram every year over the age of 40 and continue mammographic screening as long as they are in good health. Screening mammography under age 40 may occur for women who are at increased risk for breast cancer. [facility] Facility: [facility] at [facility], [address] [place] [address], [facility] Radiology Study observation (narrative) [facility] MG Breast - bilateral Screen ingOrdered By: Quan Bell on 05-27-2025 [facility] Work Phone: Absolute lymphocyte countOrd ered By: Martin Keane on 03-13-2025 Lymphocytes Auto (Unsp spec) [#/Vol] 2.60 10*3/uL 0.83-4.51 [facility] Absolute neutrophil countOrd ered By: Martin Keane on 03-13-2025 Neutrophils (Bld) [#/Vol] 4.7 10*3/uL 2.0-7.7 [facility] Anion gap in Serum or Plasma Ordered By: Martin Keane on 03-13-2025 Anion gap [Moles/Vol] 12 mmol/L 5-15 [facility] Automated lymphocyte count a s percentage of total leukocytesOrdered By: Martin Keane on 03-13-2025 Lymphocytes/100 WBC Auto (Unsp spec) 31.3 % 19-41 [facility] BUN/creatinine ratioOrdered By: Martin Keane on 03-13-2025 Urea nitrogen/Creatinine [Mass ratio] 20.7 mg/mg High 10-20 [facility] Basophil percentageOrdered B y: Martin Keane on 03-13-2025 Basophils/100 WBC (Bld) 0.6 % 0-1 [facility] Bilirubin, totalOrdered By: Martin Keane on 03-13-2025 Bilirubin [Mass/Vol] 0.30 mg/dL 0.00-1.30 [facility] CBC W/Diff, Automatedon 02-26 Absolute Lymph 2.60 X10 3/uL Normal 0.83-4.51 [facility] Comment on above: Performed By: #### L 100.0100, L500.4050 #### [facility] Laboratory [address] [place], [address] Absolute Neut 4.7 X10 3/uL Normal 2.0-7.7 [facility] Comment on above: Performed By: #### L 100.0100, L500.4050 #### [facility] Laboratory [address] [place], [address] Basophils/100 WBC (Bld) 0.6 % Normal 0-1 [facility] Comment on above: Performed By: #### L 100.0100, L500.4050 #### [facility] Laboratory [address] [place], [address] Eosinophils/100 WBC (Bld) 2.3 % Normal 0-5 [facility] Comment on above: Performed By: #### L 100.0100, L500.4050 #### [facility] Laboratory [address] [place], [address] Erythrocyte distribution width (RBC) [Ratio] 11.6 % Normal 11.6-14.6 [facility] Comment on above: Performed By: #### L 100.0100, L500.4050 #### [facility] Laboratory [address] [place], [address] Hematocrit (Bld) [Volume fraction] 37.1 % Normal 37-47 [facility] Comment on above: Performed By: #### L 100.0100, L500.4050 #### [facility] Laboratory [address] [place], [address] Hemoglobin (Bld) [Mass/Vol] 12.9 g/dL Normal 12.0-15.0 [facility] Comment on above: Performed By: #### L 100.0100, L500.4050 #### [facility] Laboratory [address] [place], [address] IG% 0.400 Normal 0.0-0.9 [facility] Comment on above: Result Comment: IG% - Immature Granulocytes (promyelocytes, myelocytes and metamyelocytes) > 1% indicates that a LEFT SHIFT is Present. Performed By: #### L 100.0100, L500.4050 #### [facility] Laboratory [address] [place], [address] Lymphocytes/100 WBC (Bld) 31.3 % Normal 19-41 [facility] Comment on above: Performed By: #### L 100.0100, L500.4050 #### [facility] Laboratory [address] [place], [address] MCH (RBC) [Entitic mass] 32.3 pg High 27.0-32.0 [facility] Comment on above: Performed By: #### L 100.0100, L500.4050 #### [facility] Laboratory [address] [place], [address] MCHC (RBC) [Mass/Vol] 34.8 g/dL Normal 32-36 [facility] Comment on above: Performed By: #### L 100.0100, L500.4050 #### [facility] Laboratory [address] [place], [address] MCV (RBC) [Entitic vol] 92.8 fL Normal 81-99 [facility] Comment on above: Performed By: #### L 100.0100, L500.4050 #### [facility] Laboratory [address] [place], [address] Monocytes/100 WBC (Bld) 8.5 % Normal 0-10 [facility] Comment on above: Performed By: #### L 100.0100, L500.4050 #### [facility] Laboratory [address] [place], [address] Neutrophils/100 WBC (Bld) 56.9 % Normal 47-70 [facility] Comment on above: Performed By: #### L 100.0100, L500.4050 #### [facility] Laboratory [address] [place], [address] Nucleated RBC (Bld) [#/Vol] 0 10*3/uL Normal 0-5 [facility] Comment on above: Performed By: #### L 100.0100, L500.4050 #### [facility] Laboratory [address] [place], [address] Platelet mean volume (Bld) [Entitic vol] 10.8 fL Normal 6.2-12.0 [facility] Comment on above: Performed By: #### L 100.0100, L500.4050 #### [facility] Laboratory [address] [place], [address] Platelets (Bld) [#/Vol] 292 10*3/uL Normal 150-450 [facility] Comment on above: Performed By: #### L 100.0100, L500.4050 #### [facility] Laboratory [address] [place], [address] RBC (Bld) [#/Vol] 4.00 10*6/uL Low 4.2-5.4 [facility] Comment on above: Performed By: #### L 100.0100, L500.4050 #### [facility] Laboratory [address] [place], [address] RDW SD 39.1 fl Normal 35.1-43.9 [facility] Comment on above: Performed By: #### L 100.0100, L500.4050 #### [facility] Laboratory [address] [place], [address] WBC (Bld) [#/Vol] 8.3 10*3/uL Normal 4.4-11.0 [facility] Comment on above: Performed By: #### L 100.0100, L500.4050 #### [facility] Laboratory [address] [place], [address] Carbon dioxide, total [Moles /volume] in Central venous bloodOrdered By: Martin Keane on 03-13-2025 CO2 [Moles/Vol] 23.3 mmol/L 21.0-32.0 [facility] Chloride assayOrdered By: Azra Keane on 03-13-2025 Chloride [Moles/Vol] 102 mmol/L 98-108 [facility] Comprehensive Metabolic Prof ilon 03-13-2025 Albumin [Mass/Vol] 4.2 g/dL Normal 3.5-5.0 [facility] Comment on above: Performed By: #### L 100.0100, L500.4050 #### [facility] Laboratory [address] [place], [address] Albumin/Globulin [Mass ratio] 1.5 {ratio} Normal 0.9-2.4 [facility] Comment on above: Performed By: #### L 100.0100, L500.4050 #### [facility] Laboratory [address] [place], [address] ALK PHOS 76 U/L Normal 35-104 [facility] Comment on above: Performed By: #### L 100.0100, L500.4050 #### [facility] Laboratory [address] [place], [address] ALT [Catalytic activity/Vol] 18 U/L Normal <=34 [facility] Comment on above: Performed By: #### L 100.0100, L500.4050 #### [facility] Laboratory [address] [place], [address] AST [Catalytic activity/Vol] 16 U/L Normal <=31 [facility] Comment on above: Performed By: #### L 100.0100, L500.4050 #### [facility] Laboratory [address] [place], [address] Bilirubin [Mass/Vol] 0.30 mg/dL Normal 0.00-1.30 [facility] Comment on above: Performed By: #### L 100.0100, L500.4050 #### [facility] Laboratory [address] [place], [address] BUN/CRE 20.7 RATIO High 10-20 [facility] Comment on above: Performed By: #### L 100.0100, L500.4050 #### [facility] Laboratory [address] [place], [address] Calcium [Mass/Vol] 9.5 mg/dL Normal 7.6-11.0 [facility] Comment on above: Performed By: #### L 100.0100, L500.4050 #### [facility] Laboratory [address] [place], [address] Chloride [Moles/Vol] 102 mmol/L Normal 98-108 [facility] Comment on above: Performed By: #### L 100.0100, L500.4050 #### [facility] Laboratory [address] [place], [address] CO2 [Moles/Vol] 23.3 mmol/L Normal 21.0-32.0 [facility] Comment on above: Performed By: #### L 100.0100, L500.4050 #### [facility] Laboratory [address] [place], [address] Creatinine [Mass/Vol] 0.81 mg/dL Normal 0.70-1.20 [facility] Comment on above: Performed By: #### L 100.0100, L500.4050 #### [facility] Laboratory [address] [place], [address] GAP 12 Normal 5-15 [facility] Comment on above: Performed By: #### L 100.0100, L500.4050 #### [facility] Laboratory [address] [place], [address] GFR/1.73 sq M.predicted among non-blacks MDRD (S/P/Bld) [Vol rate/Area] 85 mL/min/{1.73_m2} Normal >60 [facility] Comment on above: Result Comment: mL/m in/1.73m2 CKD-EPI Creatinine Equation (2020) Performed By: #### L 100.0100, L500.4050 #### [facility] Laboratory [address] [place], [address] Globulin (S) [Mass/Vol] 2.9 g/dL Normal 2.2-4.2 [facility] Comment on above: Performed By: #### L 100.0100, L500.4050 #### [facility] Laboratory [address] [place], [address] Glucose [Mass/Vol] 91 mg/dL Normal 70-99 [facility] Comment on above: Performed By: #### L 100.0100, L500.4050 #### [facility] Laboratory [address] [place], [address] Potassium [Moles/Vol] 4.0 mmol/L Normal 3.3-5.1 [facility] Comment on above: Performed By: #### L 100.0100, L500.4050 #### [facility] Laboratory [address] [place], [address] Sodium [Moles/Vol] 138 mmol/L Normal 133-145 [facility] Comment on above: Performed By: #### L 100.0100, L500.4050 #### [facility] Laboratory [address] [place], [address] T PROT 7.1 g/dL Normal 5.9-8.4 [facility] Comment on above: Performed By: #### L 100.0100, L500.4050 #### [facility] Laboratory [address] [place], [address] Urea nitrogen [Mass/Vol] 17 mg/dL Normal 4-19 [facility] Comment on above: Performed By: #### L 100.0100, L500.4050 #### [facility] Laboratory [address] [place], [address] Eosinophil percentageOrdered By: Martin Keane on 03-13-2025 Eosinophils/100 WBC (Bld) 2.3 % 0-5 [facility] Erythrocyte distribution wid th ratioOrdered By: Martin Keane on 03-13-2025 Erythrocyte distribution width (RBC) [Ratio] 11.6 % 11.6-14.6 [facility] Erythrocyte distribution wid th standard deviationOrdered By: Martin Keane on 03-13-2025 Erythrocyte distribution width (RBC) [Ratio] 39.1 fl 35.1-43.9 [facility] Glomerular filtration rate ( GFR) estimation/1.73 sq m using serum, plasma, or whole bOrdered By: Martin Keane on 03-13-2025 GFR/1.73 sq M.predicted among non-blacks MDRD (S/P/Bld) [Vol rate/Area] 85 mL/min/{1.73_m2} >60 [facility] Comment on above: mL/min/1.73m2 CKD-EP I Creatinine Equation (2020) Hematocrit Auto (Bld) [Volum e fraction]Ordered By: Martin Keane on 03-13-2025 Hematocrit (Bld) [Volume fraction] 37.1 % 37-47 [facility] Hemoglobin measurementOrdere d By: Martin Keane on 03-13-2025 Hemoglobin (Bld) [Mass/Vol] 12.9 g/dL 12.0-15.0 [facility] Immature granulocytes/100 WB C Auto (Bld)Ordered By: Martin Keane on 03-13-2025 Immature granulocytes/100 WBC (Bld) 0.400 % 0.0-0.9 [facility] Comment on above: IG% - Immature Granu locytes (promyelocytes, myelocytes and metamyelocytes) > 1% indicates that a LEFT SHIFT is Present. Internal Medicine Office Vis itomargret 03-13-2025 Internal Medicine Office Visit [facility] [address] [address] [place] [address] OFFICE VISIT Date of Service: 03/13/25 MR#: [id number] Acct: [id number] Name: LILY WAYNE Rep #: [id number] : 1970 Provider: Dr. 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 Accompanied by: Self Is patient in pain?: No Allergies No Known Allergies Allergy (Unverified 03/13/25 15:23) Medications ???Medication ???Instructions ???Recorded ???Confirmed ???Type dupilumab 200 mg/1.14 mL 200 mg subcut Q2W 12/12/24 5 History subcutaneous pen injector (Dupixent) paroxetine HCl 20 mg tablet 20 mg PO DAILY #90 tabs 12/16/24 0 03/13/25 Rx hydrochlorothiazide 25 mg tablet 25 mg PO DAILY #90 tabs 01/15/25 0 03/13/25 Rx olmesartan 20 mg tablet 20 mg PO DAILY #60 tabs 02/12/25 0 03/13/25 Rx levothyroxine 175 mcg tablet 175 mcg PO DAILY #90 tabs 03/12/25 03/13/25 Rx tirzepatide (weight loss) 5 mg/0.5 5 mg (0.5 mL) subcut QWEEK #2 mL 03/13/25 03/13/25 Rx mL subcutaneous pen injector Have you fallen in the past year?: No PFSH Medical History Metabolic syndrome Obesity Dermatitis Borderline type 2 diabetes mellitus Obstructive sleep apnea Venous insufficiency of both lower extremities Menstrual irregularity Urinary incontinence Blood glucose elevated Anxiety and depression Hypersomnolence URI (upper respiratory infection) Hypothyroidism Hypertension Surgical History History of cholecystectomy Social History adopted: No household members: children number of children: 1 current occupational status: employed 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 No acute concerns at this time. Currently on tirzepatide for weight loss. Since her last visit, has lost about 12 pounds. Has made an effort to be more active, the past month has been a little busy, in the process of retiring but overall, she states that she has been keeping up with her activity. Tolerating tirzepatide for the most part. History of borderline diabetes, A1c today is at 5.3. This is down from 5.8 at last check. History of hypertension, blood pressure today is at 142/80 mmHg. She states that at other checks, her readings where averaging 130s. Diastolic is the lowest it has been in a while. Other chronic medical conditions are stable. ROS Const Constitutional: No body ache, excessive sweating, fatigue, fever(s), frequent falls, headache(s), snoring, weakness, weight change, sleep problems or change in appetite Eyes Eyes: No blurry vision, change in vision, floaters, visual disturbances, eye pain or Light sensitivity ENT ENT: No abnormal hearing, ear or mastoid pain, tinnitus, balance problems, nosebleed/epistaxis, nasal congestion, headache(s), neck pain or sore throat Resp Respiratory: No cough, excessive phlegm production, pain on inspiration, shortness of breath, snoring or wheezing Cardio Cardiology: No chest pain at rest, chest pain with exertion, excessive sweating, shortness of breath, dyspnea on exertion, lightheadedness, orthopnea or palpitations Gastro GI: No abdominal pain, change in bowel habits, constipation, cramping, diarrhea, nausea/dyspepsia or vomiting Genitourinary-Female: No burning urination, painful urination, urinary incontinence, urinary frequency, blood in urine, suprapubic fullness, side pain, abnormal periods or pelvic pain Musc Musculoskeletal: No abnormal gait, joint pain, back pain, limited range of motion, neck pain, numbness, stiffness, tingling or Arthritis Skin Skin: No dry skin, redness, excessive hair growth, yellowing of the eye, lesions, itchy eyes, rash or wou (more content not included)... Normal [facility] Laboratory - Chemistry and C hemistry - challengeOrdered By: Martin Keane on 03-13-2025 AST [Catalytic activity/Vol] 16 U/L <32 [facility] Laboratory - Hematology and Cell countsOrdered By: Martin Keane on 03-13-2025 HbA1c (Bld) [Mass fraction] 5.3 % 4.2-6.3 [facility] MCV (mean corpuscular volume ) determinationOrdered By: Martin Keane on 03-13-2025 MCV (RBC) [Entitic vol] 92.8 fL 81-99 [facility] Mean corpuscular hemoglobin (MCH) determinationOrdered By: Martin Keane on 03-13-2025 MCH (RBC) [Entitic mass] 32.3 pg High 27.0-32.0 [facility] Mean corpuscular hemoglobin concentration (MCHC) determinationOrdered By: Martin Keane on 03-13-2025 MCHC (RBC) [Mass/Vol] 34.8 g/dL 32-36 [facility] Mean platelet volume determi nationOrdered By: Martin Keane on 03-13-2025 Platelet mean volume (Bld) [Entitic vol] 10.8 fL 6.2-12.0 [facility] Monocyte percentageOrdered B y: Martin Keane on 03-13-2025 Monocytes/100 WBC (Bld) 8.5 % 0-10 [facility] Neutrophil percentageOrdered By: Martin Keane on 03-13-2025 Neutrophils/100 WBC (Bld) 56.9 % 47-70 [facility] Nucleated red blood cell per centageOrdered By: Martin Keane on 03-13-2025 Nucleated RBC/100 WBC (Bld) [Ratio] 0 % 0-5 [facility] Platelet countOrdered By: Azra Keane on 03-13-2025 Platelets (Bld) [#/Vol] 292 10*3/uL 150-450 [facility] Potassium measurement (mass/ volume)Ordered By: Martin Keane on 03-13-2025 Potassium (Unsp spec) [Mass/Vol] 4.0 mmol/L 3.3-5.1 [facility] RBC Auto (Bld) [#/Vol]Ordere d By: Martin Keane on 03-13-2025 RBC (Bld) [#/Vol] 4.00 10*6/uL Low 4.2-5.4 [facility] Serum creatinine measurement (mass/volume)Ordered By: Martin Keane on 03-13-2025 Creatinine [Mass/Vol] 0.81 mg/dL 0.70-1.20 [facility] Serum globulin measurementOr dered By: Martin Keane on 03-13-2025 Globulin (S) [Mass/Vol] 2.9 g/dL 2.2-4.2 [facility] Serum glucose measurement (m ass/volume)Ordered By: Martin Keane on 03-13-2025 Glucose [Mass/Vol] 91 mg/dL 70-99 [facility] Serum or plasma alanine sparks otransferase (ALT) measurementOrdered By: Martin Keane on 03-13-2025 ALT [Catalytic activity/Vol] 18 U/L <35 [facility] Serum or plasma albumin carmelina urement (mass/volume)Ordered By: Martin Keane on 03-13-2025 Albumin [Mass/Vol] 4.2 g/dL 3.5-5.0 [facility] Serum or plasma albumin/glob ulin mass ratioOrdered By: Martin Keane on 03-13-2025 Albumin/Globulin [Mass ratio] 1.5 {ratio} 0.9-2.4 [facility] Serum or plasma alkaline brandi sphatase measurementOrdered By: Martin Keane 03-13-2025 ALP [Catalytic activity/Vol] 76 U/L 35-104 [facility] Serum or plasma calcium carmelina urement (mass/volume)Ordered By: Martin Keane on 03-13-2025 Calcium [Mass/Vol] 9.5 mg/dL 7.6-11.0 [facility] Serum or plasma urea nitroge n measurement (mass/volume)Ordered By: Martin Keane on 03-13-2025 Urea nitrogen [Mass/Vol] 17 mg/dL 4-19 [facility] Sodium levelOrdered By: Lora Keane on 03-13-2025 Sodium [Moles/Vol] 138 mmol/L 133-145 [facility] Total proteinOrdered By: Art Keane on 03-13-2025 Protein [Mass/Vol] 7.1 g/dL 5.9-8.4 [facility] White blood cell (WBC) count Ordered By: Martin Keane on 03-13-2025 WBC (Bld) [#/Vol] 8.3 10*3/uL 4.4-11.0 [facility] Basic Metabolic Profile (BMP )on 12-12-2024 BUN/CRE 16.6 RATIO Normal 10-20 [facility] Comment on above: Performed By: #### L 501.9520, L500.4100, L500.2500 #### [facility] Laboratory [address] [place], [address] CA,Total 9.4 mg/dL Normal 8.5-10.1 [facility] Comment on above: Performed By: #### L 501.9520, L500.4100, L500.2500 #### [facility] Laboratory [address] [place], [address] Chloride [Moles/Vol] 104 mmol/L Normal 98-107 [facility] Comment on above: Performed By: #### L 501.9520, L500.4100, L500.2500 #### [facility] [address] [place], [address] CO2 [Moles/Vol] 27.0 mmol/L Normal 21.0-32.0 [facility] Comment on above: Performed By: #### L 501.9520, L500.4100, L500.2500 #### [facility] [address] [place], [address] Creatinine [Mass/Vol] 0.90 mg/dL Normal 0.55-1.02 [facility] Comment on above: Result Comment: The validity of the calculated GFR GFRAA in patients over 70 years has not been determined. Clinical correlation is essential. Performed By: #### L 501.9520, L500.4100, L500.2500 #### [facility] [address] [place], [address] EST GFR - AA 83 mL/min Normal >60 [facility] Comment on above: Result Comment: Afri can Citizen [place] GFR Calc Performed By: #### L 501.9520, L500.4100, L500.2500 #### [facility] Laboratory [address] [place], [address] GAP 7 Normal 5-15 [facility] Comment on above: Performed By: #### L 501.9520, L500.4100, L500.2500 #### [facility] [address] [place], [address] GFR/1.73 sq M.predicted among non-blacks MDRD (S/P/Bld) [Vol rate/Area] 69 mL/min/{1.73_m2} Normal >60 [facility] Comment on above: Result Comment: Non- GFR Calc Performed By: #### L 501.9520, L500.4100, L500.2500 #### [facility] [address] [place], [address] Glucose [Mass/Vol] 93 mg/dL Normal 74-106 [facility] Comment on above: Performed By: #### L 501.9520, L500.4100, L500.2500 #### [facility] [address] [place], [address] Potassium [Moles/Vol] 4.2 mmol/L Normal 3.5-5.1 [facility] Comment on above: Performed By: #### L 501.9520, L500.4100, L500.2500 #### [facility] [address] [place], [address] Sodium [Moles/Vol] 138 mmol/L Normal 136-145 [facility] Comment on above: Performed By: #### L 501.9520, L500.4100, L500.2500 #### [facility] [address] [place], [address] Urea nitrogen [Mass/Vol] 15 mg/dL Normal 7-18 [facility] Comment on above: Performed By: #### L 501.9520, L500.4100, L500.2500 #### [facility] [address] [place], [address] Blood urea nitrogen (BUN)/cr eatinine ratioOrdered By: Martin Keane on 12-12-2024 Urea nitrogen/Creatinine [Mass ratio] 16.6 mg/mg 10-20 [facility] Carbon dioxide measurementOr dered By: Martin Keane on 12-12-2024 CO2 [Moles/Vol] 27.0 mmol/L 21.0-32.0 [facility] Chloride measurementOrdered By: Martin Keane on 12-12-2024 Chloride [Moles/Vol] 104 mmol/L 98-107 [facility] Glomerular filtration rate ( GFR) estimationOrdered By: Martin Keane on 12-12-2024 GFR/1.73 sq M.predicted among non-blacks MDRD (S/P/Bld) [Vol rate/Area] 69 mL/min/{1.73_m2} >60 [facility] Comment on above: Non- GFR Calc Glucose measurementOrdered B y: Martin Keane on 12-12-2024 Glucose [Mass/Vol] 93 mg/dL 74-106 [facility] High density lipoprotein (HD L) measurementOrdered By: Martin Keane on 12-12-2024 Cholesterol in HDL [Mass/Vol] 45 mg/dL >40 [facility] Comment on above: The drugs N-Acetylcy steine and Metamizole may falsely depress this assay. Reference Range HDL <40 mg/dL Low HDL Cholesterol HDL >or= 60 mg/dL High HDL Cholesterol Internal Medicine Office Vis hernandez 12-12-2024 Internal Medicine Office Visit [facility] [address] [place] [address] [address] [place] [address] OFFICE VISIT Date of Service: 12/12/24 MR#: [id number] Acct: [id number] Name: LILY WAYNE Rep #: [id number] : 1970 Provider: Dr. 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 Accompanied by: Self Is patient in pain?: No Allergies No Known Allergies Allergy (Unverified 12/12/24 10:57) Medications ???Medication ???Instructions ???Recorded ???Confirmed ???Type levothyroxine 175 mcg tablet 175 mcg PO DAILY #90 tabs 03/17/24 12/12/24 Rx hydrochlorothiazide 25 mg tablet 25 mg PO DAILY #90 tabs 09/01/24 0 12/12/24 Rx olmesartan 20 mg tablet 20 mg PO DAILY #60 tabs 10/30/24 0 12/12/24 Rx dupilumab 200 mg/1.14 mL 200 mg subcut Q2W 12/12/24 5 History subcutaneous pen injector (Dupixent) paroxetine HCl 10 mg tablet 10 mg PO DAILY #90 tabs 12/12/24 0 12/12/24 Rx tirzepatide (weight loss) 2.5 2.5 mg (0.5 mL) subcut QWEEK #2 mL 12/12/24 12/12/24 Rx mg/0.5 mL subcutaneous pen injector (Zepbound) Have you fallen in the past year?: No [facility] History (Updated 12/12/24 @ 13:[address] 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 Also has some concerns. Following up with dermatology and was started on Dupixent. Has found it remarkably helpful and dermatitis is almost completely resolved. She however reports that it has caused some more swelling of her lower extremity. Has been using her compression consistently. Main concern at this time is difficulty with weight loss. Has been working with a executive personal assistant at the gym and exercises consistently. Has also made dietary changes but has gained some weight si nce her last visit. Currently at BMI of 48.2. History of borderline diabetes and moderate sleep apnea. She reports consistent use of her CPAP for the most part. History of hypertension, blood pressure today is at 142/86 mmHg. Has been taking her medication consistently but has not checked her blood pressure at home. She is typically higher during office visits. Other chronic medical conditions are stable. ROS Const Constitutional: Positive for weight change; No body ache, excessive sweating, fatigue, fever(s), frequent falls, headache(s), snoring, weakness, sleep problems or change in appetite Eyes Eyes: No blurry vision, change in vision, eye pain or Light sensitivity ENT ENT: No abnormal hearing, ear or mastoid pain, tinnitus, nasal congestion, headache(s), neck pain or sore throat Resp Respiratory: No cough, shortness of breath, snoring or wheezing Cardio Cardiology: No chest pain at rest, chest pain with exertion, excessive sweating, shortness of breath, dyspnea on exertion, lightheadedness, orthopnea or palpitations Gastro GI: No abdominal pain, change in bowel habits, constipation, cramping, diarrhea, nausea/dyspepsia or vomiting Genitourinary-Female: No burning urination, painful urination, urinary incontinence, urinary frequency, blood in urine, abnormal periods or pelvic pain Musc Musculoskeletal: No abnormal gait, joint pain, back pain, limited range of motion, neck pain, numbness, stiffness, tingling or Arthritis Skin Skin: No dry skin, redness, lesions (more content not included)... Normal [facility] Laboratory - Hematology and Cell countsOrdered By: Martin Keane on 12-12-2024 HbA1c (Bld) [Mass fraction] 7.0 % High 4.2-6.3 [facility] Lipid Profileon 12-12-2024 Cholesterol [Mass/Vol] 179 mg/dL Normal 200 [facility] Comment on above: Result Comment: <200 mg/dL Desirable 200-240 mg/dL Borderline >240 mg/dL High Risk Performed By: #### L 501.9520, L500.4100, L500.2500 #### [facility] Laboratory [address] [place], [address] Cholesterol in HDL [Mass/Vol] 45 mg/dL Normal [facility] Comment on above: Result Comment: The drugs N-Acetylcysteine and Metamizole may falsely depress this assay. Reference Range HDL <40 mg/dL Low HDL Cholesterol HDL >or= 60 mg/dL High HDL Cholesterol Performed By: #### L 501.9520, L500.4100, L500.2500 #### [facility] Laboratory [address] [place], [address] Cholesterol in LDL [Mass/Vol] 70 mg/dL Normal 0-130 [facility] Comment on above: Performed By: #### L 501.9520, L500.4100, L500.2500 #### [facility] Laboratory [address] [place], [address] Cholesterol in VLDL [Mass/Vol] 64 mg/dL High 5-40 [facility] Comment on above: Performed By: #### L 501.9520, L500.4100, L500.2500 #### [facility] Laboratory [address] [place], [address] Triglyceride [Mass/Vol] 319 mg/dL High [facility] Comment on above: Result Comment: The drugs N-Acetylcysteine and Metamizole may falsely depress this assay. Serum Triglycerides Reference Interval Normal <150 mg/dL Borderline high 150 - 199 mg/dL High 200 - 499 mg/dL Very High > or = 500 mg/dL Performed By: #### L 501.9520, L500.4100, L500.2500 #### [facility] [address] [place], [place], [address] Low density lipoprotein (LDL ) cholesterol measurementOrdered By: Martin Keane on 12-12-2024 Cholesterol in LDL [Mass/Vol] 70 mg/dL 0-130 [facility] Potassium measurementOrdered By: Martin Keane on 12-12-2024 Potassium [Moles/Vol] 4.2 mmol/L 3.5-5.1 [facility] Serum anion gap measurementO rdered By: Martin Keane on 12-12-2024 Anion gap [Moles/Vol] 7 mmol/L 5-15 [facility] Serum or plasma calcium carmelina urement (mass/volume)Ordered By: Martin Keane on 12-12-2024 Calcium [Mass/Vol] 9.4 mg/dL 8.5-10.1 [facility] Serum or plasma cholesterol measurement (mass/volume)Ordered By: Martin Keane on 12-12-2024 Cholesterol [Mass/Vol] 179 mg/dL <200 [facility] Comment on above: <200 mg/dL Desirable 200-240 mg/dL Borderline >240 mg/dL High Risk Serum or plasma creatinine m easurement (mass/volume)Ordered By: Martin Keane on 12-12-2024 Creatinine [Mass/Vol] 0.90 mg/dL 0.55-1.02 [facility] Comment on above: The validity of the calculated GFR & GFRAA in patients over 70 years has not been determined. Clinical correlation is essential. Serum or plasma thyroid stim ulating hormone (TSH) measurement (units/volume)Ordered By: Martin Keane on 12-12-2024 TSH Qn 2.670 uIU/mL 0.358-3.740 [facility] Serum or plasma urea nitroge n measurement (mass/volume)Ordered By: Martin Keane on 12-12-2024 Urea nitrogen [Mass/Vol] 15 mg/dL 7-18 [facility] Sodium levelOrdered By: Lora melissa Lakhwinder on 12-12-2024 Sodium [Moles/Vol] 138 mmol/L 136-145 [facility] Thyroid Stim Hormone (TSH)on 12-12-2024 TSH 2.670 uIU/mL Normal 0.358-3.740 [facility] Comment on above: Performed By: #### L 501.9520, L500.4100, L500.2500 ####[facility] [address] [place], [place], [id number] Triglycerides measurementOrd ered By: Martin Keane on 12-12-2024 Triglyceride [Mass/Vol] 319 mg/dL High <199 [facility] Comment on above: The drugs N-Acetylcy steine and Metamizole may falsely depress this assay.Serum Triglycerides Reference Interval Normal <150 mg/dL Borderline high 150 - 199 mg/dL High 200 - 499 mg/dL Very High > or = 500 mg/dL Very low density lipoprotein (VLDL) cholesterol measurementOrdered By: Martin Keane on 12-12-2024 Very low density lipoprotein (VLDL) cholesterol measurement 64 mg/dL High 5-40 [facility] Basic Metabolic Profile (BMP )on 09-04-2024 BUN/CRE 22.3 RATIO High 10-20 [facility] Comment on above: Performed By: #### L 500.2500, L501.9520, L501.9985 ####[facility] [address] [place], [place], [address] CA,Total 9.4 mg/dL Normal 8.5-10.1 [facility] Comment on above: Performed By: #### L 500.2500, L501.9520, L501.9985 ####[facility] [address] [place], [address] Chloride [Moles/Vol] 104 mmol/L Normal 98-107 [facility] Comment on above: Performed By: #### L 500.2500, L501.9520, L501.9985 ####[facility] [address] [place], [address] CO2 [Moles/Vol] 29.0 mmol/L Normal 21.0-32.0 [facility] Comment on above: Performed By: #### L 500.2500, L501.9520, L501.9985 ####[facility] [address] [place], [address] Creatinine [Mass/Vol] 0.94 mg/dL Normal 0.55-1.02 [facility] Comment on above: Result Comment: The validity of the calculated GFR GFRAA in patients over 70 years has not been determined. Clinical correlation is essential. Performed By: #### L 500.2500, L501.9520, L501.9985 ####[facility] [address] [place], [address] EST GFR - AA 79 mL/min Normal >60 [facility] Comment on above: Result Comment: Afri can Citizen [place] GFR Calc Performed By: #### L 500.2500, L501.9520, L501.9985 ####[facility] [address] [place], [address] GAP 5 Normal 5-15 [facility] Comment on above: Performed By: #### L 500.2500, L501.9520, L501.9985 ####[facility] [address] [place], [address] GFR/1.73 sq M.predicted among non-blacks MDRD (S/P/Bld) [Vol rate/Area] 65 mL/min/{1.73_m2} Normal >60 [facility] Comment on above: Result Comment: Non- GFR Calc Performed By: #### L 500.2500, L501.9520, L501.9985 ####[facility] [address] [place], [address] Glucose [Mass/Vol] 122 mg/dL High 74-106 [facility] Comment on above: Result Comment: Fast ing Glucose result from 100 to 125 mg/dL suggests IMPAIRED HOMEOSTASIS per A.D.A. criteria. Performed By: #### L 500.2500, L501.9520, L501.9985 ####[facility] [address] [place], [address] Potassium [Moles/Vol] 4.3 mmol/L Normal 3.5-5.1 [facility] Comment on above: Performed By: #### L 500.2500, L501.9520, L501.9985 ####[facility] [address] [place], [address] Sodium [Moles/Vol] 138 mmol/L Normal 136-145 [facility] Comment on above: Performed By: #### L 500.2500, L501.9520, L501.9985 ####[facility] [address] [place], [address] Urea nitrogen [Mass/Vol] 21 mg/dL High 7-18 [facility] Comment on above: Performed By: #### L 500.2500, L501.9520, L501.9985 ####[facility] [address] [place], [address] Hemoglobin A1con 09-04-2024 HbA1c (Bld) [Mass fraction] 5.8 % High 3.8-5.6 [facility] Comment on above: Result Comment: Norm al < 5.7 % Prediabetic 5.7 - 6.4 % Diabetic >or= 6.5 % Please note range changes. Performed By: #### L 500.2500, L501.9520, L501.9985 ####[facility] [address] [place], [address] Internal Medicine Office Vis hernandez 09-04-2024 Internal Medicine Office Visit [facility] [address] [place] [address] OFFICE VISIT Date of Service: 09/04/24 MR#: [id number] Acct: [id number] Name: LILY WAYNE Rep #: [id number] : 1970 Provider: Dr. Martin vogt MD Age/Sex: 54/F Location: [facility] [place] Status: Signed Intake Vital Signs 06/02/24 15:30 09/04/24 14:32 Height 5 ft 7 in 5 ft 7 in Weight: 303 lb BMI 47.4 BP 152/94 H Blood Pressure Location Lt brachial Position Sitting Respiration 14 Pulse 85 Pulse Source Monitor Temp 97.2 F L Temp Source Temporal Pulse Oximetry (%) 95 Oxygen Delivery Method room air Intake Visit Reasons: 3 m fu Chief Complaint: Follow-up chronic conditions 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: No Is patient in pain?: No Allergies No Known Allergies Allergy (Unverified 09/04/24 14:26) Medications ???Medication ???Instructions ???Recorded ???Confirmed ???Type levothyroxine 175 mcg tablet 175 mcg PO DAILY #90 tabs 03/17/24 09/04/24 Rx paroxetine HCl 20 mg tablet 20 mg PO DAILY #90 tabs 03/17/24 09/04/24 Rx olmesartan 20 mg tablet 20 mg PO DAILY #60 tabs 06/02/24 09/04/24 Rx hydrochlorothiazide 25 mg tablet 25 mg PO DAILY #90 tabs 09/01/24 09/04/24 Rx Nurse's Note: States she has had redness and itching and peeling on R hand states that [facility]. Did not get into anything but does hold her phone in that hand. States it occasionally bubbles . She finished 2 weeks worth of prednisone in july. it helped did not go away, got worse after finishing. States she did not take as prescribed. [facility] Medical History (Updated 09/04/24 @ 17:[address] 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 Also has some concerns. Blood pressure done initially visit however repeat was 152/80. She states that her readings and average of been in the 140s with the lowest in the upper 130. Has been taking only half of olmesartan. Instruction at her last visit had been to take half and if systolic remains over 140 increase to a whole tablet. She states that she has been taking hydrochlorothiazide consistently. Stays active. No chest pain, palpitation or shortness of breath. Other chronic medical conditions are largely stable. She has concerns about difficulty with weight loss. Recently started exercising consistently and is also working with a job trainer. Currently at a BMI of 47.4. ROS Const Constitutional: No body ache, chills, excessive sweating, fatigue, fever(s), frequent falls, headache(s), snoring, weakness, sleep problems or change in appetite Eyes Eyes: No blurry vision, change in vision, floaters, visual disturbances, eye pain or Light sensitivity ENT ENT: No abnormal hearing, ear or mastoid pain, tinnitus, balance problems, nosebleed/epistaxis, nasal congestion, headache(s), neck pain or sore throat Resp Respiratory: No cough, excessive phlegm production, pain on inspiration, shortness of breath, snoring or wheezing Cardio Cardiology: No chest pain at rest, chest pain with exertion, excessive sweating, shortness of breath, dyspnea on exertion, lightheadedness, orthopnea or palpitations Gastro GI: No abdominal pain, change in bowel habits, constipation, cramping, diarrhea, nausea/dyspepsia or vomiting Genitourinary-Female: No burning urination, painful urination, urinary incontinence, urinary frequency, suprapubic fullness, side pain, abnormal vaginal bleeding or pelvic pain Musc Musculoskeletal: No abnormal gait, joint pain, back pain, limited range of motion, loss of height, muscle cramps, neck pain or numbness Skin Skin: Positive for dry skin, redness, itchy eyes, rash and other; No excessive hair growth, yellowi (more content not included)... Normal [facility] Thyroid Stim Hormone (TSH)on 09-04-2024 TSH 1.900 uIU/mL Normal 0.358-3.740 [facility] Comment on above: Performed By: #### L 500.2500, L501.9520, L501.9985 ####[facility] [address] [place], [address] Basophil percentageOrdered B y: Martin Keane on 01-04-2024 Bilirubin [Mass/Vol] 0.50 mg/dL 0.20-1.00 [facility] Comment on above: For patients on eltr ombopag therapy, use of Dimension [place] TBIL is not recommended. Chloride [Moles/Vol] 106 mmol/L 98-107 [facility] Cholesterol [Mass/Vol] 177 mg/dL <200 [facility] Comment on above: <200 mg/dL Desirable 200-240 mg/dL Borderline >240 mg/dL High Risk Glucose [Mass/Vol] 114 mg/dL 74-106 [facility] Comment on above: Fasting Glucose resu lt from 100 to 125 mg/dL suggests IMPAIRED HOMEOSTASIS per A.D.A. criteria. Potassium [Moles/Vol] 4.2 mmol/L 3.5-5.1 [facility] Comment on above: Moderate Hemolysis, Result may be falsely increased. Protein [Mass/Vol] 7.4 g/dL 6.4-8.2 [facility] Sodium [Moles/Vol] 138 mmol/L 136-145 [facility] Triglyceride [Mass/Vol] 311 mg/dL <199 [facility] Comment on above: The drugs N-Acetylcy steine and Metamizole may falsely depress this assay.Serum Triglycerides Reference Interval Normal <150 mg/dL Borderline high 150 - 199 mg/dL High 200 - 499 mg/dL Very High > or = 500 mg/dL Laboratory - Chemistry and C hemistry - challengeOrdered By: Martin Keane on 01-04-2024 Albumin/Globulin [Mass ratio] 0.8 {ratio} 0.9-2.4 [facility] ALP [Catalytic activity/Vol] 81 U/L 45-117 [facility] ALT [Catalytic activity/Vol] 38 U/L 13-56 [facility] Cholesterol in HDL [Mass/Vol] 41 mg/dL >40 [facility] Comment on above: The drugs N-Acetylcy steine and Metamizole may falsely depress this assay. Reference Range HDL <40 mg/dL Low HDL Cholesterol HDL >or= 60 mg/dL High HDL Cholesterol Cholesterol in LDL [Mass/Vol] 74 mg/dL 0-130 [facility] CO2 [Moles/Vol] 25.0 mmol/L 21.0-32.0 [facility] Globulin (S) [Mass/Vol] 4.1 g/dL 2.2-4.2 [facility] Urea nitrogen/Creatinine [Mass ratio] 16.2 mg/mg 10-20 [facility] No Panel InformationOrdered By: Martin Keane on 01-04-2024 Estimated GFR (MDRD) Amer 81 mL/min >60 [facility] Comment on above: GFR Calc Estimated GFR (MDRD) Non-Af Amer 67 mL/min >60 [facility] Comment on above: Non- GFR Calc VLDL Cholesterol 62 mg/dL 5-40 [facility] Serum or plasma calcium carmelina urement (mass/volume)Ordered By: Martin Keane on 01-04-2024 Calcium [Mass/Vol] 9.6 mg/dL 8.5-10.1 [facility] Serum or plasma creatinine m easurement (mass/volume)Ordered By: Martin Keane on 01-04-2024 Creatinine [Mass/Vol] 0.93 mg/dL 0.55-1.02 [facility] Comment on above: The validity of the calculated GFR & GFRAA in patients over 70 years has not been determined. Clinical correlation is essential. Serum or plasma thyroid stim ulating hormone (TSH) measurement (units/volume)Ordered By: Martin Keane on 01-04-2024 TSH Qn 2.97 uIU/mL 0.358-3.74 [facility] Serum or plasma urea nitroge n measurement (mass/volume)Ordered By: Martin Keane on 01-04-2024 Urea nitrogen [Mass/Vol] 15 mg/dL 7-18 [facility] Thin prep Papanicolaou smear with manual screeningOrdered By: geelittletonzohreh Keane on 01-04-2024 Thin prep Papanicolaou smear with manual screening 3.3 g/dL 3.2-5.0 [facility] Thin prep Papanicolaou smear with manual screening 28 U/L 15-37 [facility] Comment on above: Moderate Hemolysis, Result may be falsely increased. Thin prep Papanicolaou smear with manual screening 7 5-15 [facility] Absolute lymphocyte countOrd ered By: danilo Keane on 01-01-2024 Lymphocytes Auto (Unsp spec) [#/Vol] 2.77 10*3/uL 0.83-4.51 [facility] Automated lymphocyte count a s percentage of total leukocytesOrdered By: Martin Keane on 01-01-2024 Lymphocytes/100 WBC Auto (Unsp spec) 33.2 % 19-41 [facility] Basophil percentageOrdered B y: Martin Keane on 01-01-2024 Basophils/100 WBC (Bld) 0.6 % 0-1 [facility] Eosinophils/100 WBC (Bld) 3.4 % 0-5 [facility] Hemoglobin (Bld) [Mass/Vol] 12.9 g/dL 12.0-15.0 [facility] Monocytes/100 WBC (Bld) 9.7 % 0-10 [facility] Neutrophils (Bld) [#/Vol] 4.4 10*3/uL 2.0-7.7 [facility] Neutrophils/100 WBC (Bld) 52.7 % 47-70 [facility] WBC (Bld) [#/Vol] 8.4 10*3/uL 4.4-11.0 [facility] Determination of erythrocyte mean corpuscular volume (MCV)Ordered By: Martin Keane on 01-01-2024 MCV (RBC) [Entitic vol] 92.1 fL 81-99 [facility] Erythrocyte distribution wid th ratioOrdered By: [facility] Ahsandaniella on 01-01-2024 Erythrocyte distribution width (RBC) [Ratio] 12.3 % 11.6-14.6 [facility] Erythrocyte distribution wid th standard deviationOrdered By: [facility] on 01-01-2024 Erythrocyte distribution width (RBC) [Entitic vol] 40.8 fL 35.1-43.9 [facility] Hematocrit Auto (Bld) [Volum e fraction]Ordered By: [facility] Ahsandaniella on 01-01-2024 Hematocrit (Bld) [Volume fraction] 39.5 % 37-47 [facility] Immature granulocytes/100 WB C Auto (Bld)Ordered By: [facility] Ahsandaniella on 01-01-2024 Immature granulocytes/100 WBC (Bld) 0.400 % 0.0-0.9 [facility] Comment on above: IG% - Immature Granu locytes (promyelocytes, myelocytes and metamyelocytes) > 1% indicates that a LEFT SHIFT is Present. Laboratory - Hematology and Cell countsOrdered By: Martin Keane on 01-01-2024 MCH (RBC) [Entitic mass] 30.1 pg 27.0-32.0 [facility] MCHC (RBC) [Mass/Vol] 32.7 g/dL 32-36 [facility] Nucleated RBC/100 WBC (Bld) [Ratio] 0 % 0-5 [facility] Platelet mean volume (Bld) [Entitic vol] 10.1 fL 6.2-12.0 [facility] Platelets (Bld) [#/Vol] 311 10*3/uL 150-450 [facility] RBC Auto (Bld) [#/Vol]Ordere d By: Jessicazohreh Foremanaristidesdaniella on 01-01-2024 RBC (Bld) [#/Vol] 4.29 10*6/uL 4.2-5.4 [facility] Laboratory - Microbiology an d Antimicrobial susceptibilityOrdered By: Martin Keane on 12-12-2023 SARS-CoV-2 (COVID-19) RNA ROSARIO+probe Ql (Unsp spec) [facility] No Panel Informationon 12-12 Influenza Types A,B Rapid (Clinic) Negative [facility] CHEST 2 VIEW PA AND LATon CHEST 2 VIEW PA AND LAT Patient Name: LILY WAYNE STUDY: TH CHEST 2 VIEW PA AND LAT; 01/19/2023 10:04 am INDICATION: DYSPNEA, UNSPECIFIED. COMPARISON: No priors ACCESSION NUMBER(S): [id number] ORDERING CLINICIAN: AUTUMN ROSAS FINDINGS: There is no focal lung consolidation or effusion. There is no edema. The cardiac silhouette is within normal limits for size. IMPRESSION: No acute cardiopulmonary process. Electronically signed by: MIGUEL ANGEL MARI MD [facility] Breast - bilateral Screen ingon 05-02-2022 IMPRESSION: No mammographic evidence of malignancy. BI-RADS: 2: Benign Recommendation: Routine mammography. Recommendation Laterality: Bilateral The current National Comprehensive Cancer Network and [employer] [place] [employer] guidelines recommend women undergo a screening mammogram every year over the age of 40 and continue mammographic screening as long as they are in good health. Screening mammography under age 40 may occur for women who are at increased risk for breast cancer. OLOGY EXAM: MAMMO SCREENIN G WITH ISAAC BILATERAL, 05/02/2022 14:39 PM CLINICAL INDICATIONS: Annual screening. No current breast concerns. History of benign right core biopsy. COMPARISON: Bilateral mammogram May 26, 2020 and June 18, 2019 TECHNIQUE: 2-D MLO and CC views were obtained of the bilateral breasts. 3-D MLO and CC digital tomosynthesis images were also acquired. Computer aided detection was utilized. FINDINGS: The breasts are heterogeneously dense, which may obscure small masses. A biopsy clip is within the anterior right breast. There are no suspicious masses, calcifications, or architectural distortions. RADIOLOGY Kesha Gonzalez MD - 05/02/2022 EXAM: MAMMO SCREENING WITH ISAAC BILATERAL, 05/02/2022 14:39 PM CLINICAL INDICATIONS: Annual screening. No current breast concerns. History of benign right core biopsy. COMPARISON: Bilateral mammogram May 26, 2020 and June 18, 2019 TECHNIQUE: 2-D MLO and CC views were obtained of the bilateral breasts. 3-D MLO and CC digital tomosynthesis images were also acquired. Computer aided detection was utilized. FINDINGS: The breasts are heterogeneously dense, which may obscure small masses. A biopsy clip is within the anterior right breast. There are no suspicious masses, calcifications, or architectural distortions. IMPRESSION IMPRESSION: No mammographic evidence of malignancy. BI-RADS: 2: Benign Recommendation: Routine mammography. Recommendation Laterality: Bilateral The current National Comprehensive Cancer Network and [employer] [place] [employer] guidelines recommend women undergo a screening mammogram every year over the age of 40 and continue mammographic screening as long as they are in good health. Screening mammography under age 40 may occur for women who are at increased risk for breast cancer. [facility] Radiology Study observation (narrative) [facility] MG Breast - bilateral Screen ingOrdered By: Kesha Gonzalez on 05-02-2022 [facility] Work Phone: CORONAVIRUS 2019, SCREEN ASY MPTOMATICon 04-14-2020 CORONAVIRUS 2019,PCR NOT DETECTED Normal Not Detected [facility] Comment on above: Result Comment: . This assay is designed to detect SARS-CoV-2 based on replication of specific regions of the RNA from the SARS-CoV-2 virus. A Not Detected result does not preclude 2019-nCoV infection since the adequacy of sample collection and/or low viral burden may result in presence of viral nucleic acids below the clinical sensitivity of this test method. Fact sheet for providers: https://www.fda.gov/media/560871/download Fact sheet for patients: https://www.fda.gov/media/711046/download This test has been validated by the crm marketing executive but FDAs independent review of this validation is pending. This test has been verified by [facility] ([facility]). This test is only authorized for the duration of time that circumstances exist to justify the authorization of the emergency use of in vitro diagnostic tests for the detection of SARS-CoV-2 virus and/or diagnosis of COVID-19 infection under section 564(b)(1) of the Act, 21 U.S.C. 360bbb-3(b)(1), unless the authorization is terminated or revoked sooner. [facility] is certified under CLIA-88 as qualified to perform high complexity testing. Testing is performed in the [facility] laboratories located at [address] [place] [address]. Performed By: #### C OVSC #### [place] [address] CORONAVIRUS 2019, SCREEN ASY MPTOMATICon 04-13-2020 Lab Specimen Source Nasal, Nasopharyngeal Normal [facility] Comment on above: Performed By: #### C OVSC #### [place] [address] PTH Intacton 08-12-2018 PTH Intact 49 pg/mL Normal 15-65 [facility] Comment on above: Result Comment: Perf ormed At: [facility] [place], [place] [id number] Vincent PhD Ph:[phone] Performed By: #### 1 [id number] ####SON [address] [place] [address] Auto Diffon 08-10-2018 Basophils Auto #/vol (Bld) 0.1 E3/mcL Normal 0.0-0.2 [facility] Comment on above: Order Comment: Order Added by Discern Expert. Performed By: #### 2 [id number] ####SON [address] [place] [address] Basophils/100 WBC Auto (Bld) 0.6 % Normal 0.0-2.0 [facility] Comment on above: Order Comment: Order Added by Discern Expert. Performed By: #### 2 [id number] ####SON [address] [place] [address] Eos Absolute 0.2 E3/mcL Normal 0.0-0.7 [facility] Comment on above: Order Comment: Order Added by Discern Expert. Performed By: #### 2 [id number] ####SON [address] [place] [address] Eosinophils/100 WBC Auto (Bld) 2.0 % Normal 0.0-11.0 [facility] Comment on above: Order Comment: Order Added by Discern Expert. Performed By: #### 2 [id number] ####SON [address] [place] [address] Lymphocytes Auto #/vol (Bld) 2.1 E3/mcL Normal 1.2-3.4 [facility] Comment on above: Order Comment: Order Added by Discern Expert. Performed By: #### 2 [id number] ####SON [address]Watm[address] [place] [address] Lymphocytes/100 WBC Auto (Bld) 24.5 % Normal 20.0-55.0 [facility] Comment on above: Order Comment: Order Added by Discern Expert. Performed By: #### 2 [id number] ####SON [address] [place] [address] [place] Absolute 0.4 E3/mcL Normal 0.0-0.7 [facility] Comment on above: Order Comment: Order Added by Discern Expert. Performed By: #### 2 [id number] ####SON [address] [place] [address] Monocytes/100 WBC Auto (Bld) 5.0 % Normal 0.0-10.0 [facility] Comment on above: Order Comment: Order Added by Discern Expert. Performed By: #### 2 474411 ####SON MfrPput[address] [place] [address] Neutro Absolute 5.8 E3/mcL Normal 1.4-6.5 [facility] Comment on above: Order Comment: Order Added by Discern Expert. Performed By: #### 2 803662 ####SON [address] [place] [address] Neutro Auto 67.9 % Normal 37.0-75.0 [facility] Comment on above: Order Comment: Order Added by Discern Expert. Performed By: #### 2 544391 ####SON [address] [place] [address] CBC w/ Auto Diffon 8 Erythrocyte distribution width Auto Ratio (RBC) 11.9 % Normal 11.5-14.5 [facility] Comment on above: Performed By: #### 2 715394 ####SON [address] [place] [address] Hematocrit Auto Volume Fraction (Bld) 41.3 % Normal 36.0-48.0 [facility] Comment on above: Performed By: #### 2 552349 ####SON [address] [place] [address] Hemoglobin mass conc (Bld) 14.3 g/dL Normal 12.0-16.0 [facility] Comment on above: Performed By: #### 2 [id number] ####SON [address]Cr[address] [place] [address] MCH Auto Entitic mass (RBC) 33.0 pg High 27.0-31.0 [facility] Comment on above: Performed By: #### 2 [id number] ####SON [address] [place] [address] MCHC Auto mass conc (RBC) 34.7 g/dL Normal 33.0-37.0 [facility] Comment on above: Performed By: #### 2 951812 ####SON [address] [place] [address] MCV Auto Entitic volume (RBC) 95.3 fL Normal 78.0-100.0 [facility] Comment on above: Performed By: #### 2 561776 ####SON [address]we[address] [place] [address] Platelet mean volume Auto Entitic volume (Bld) 8.5 fL Normal 7.4-11.0 [facility] Comment on above: Performed By: #### 2 647037 ####SON [address] [place] [address] Platelets Auto #/vol (Bld) 317 E3/mcL Normal 130-400 [facility] Comment on above: Performed By: #### 2 [id number] ####SON [address] [place] [address] RBC Auto #/vol (Bld) 4.33 E6/mcL Normal 3.90-5.40 [facility] Comment on above: Performed By: #### 2 273583 ####SON [address] [place] [address] WBC Auto #/vol (Bld) 8.6 E3/mcL Normal 3.6-11.0 [facility] Comment on above: Performed By: #### 2 269081 ####SON [address] [place] [address] CMPon 08-10-2018 Anion gap 3 molar conc 12 mmol/L Normal 6-16 [facility] Comment on above: Performed By: #### 2 082085 ####SON [address] [place] [address] Albumin mass conc 4.1 g/dL Normal 3.4-5.0 [facility] Comment on above: Performed By: #### 2 145547 ####SON [address] [place] [address] Albumin/Globulin mass ratio 1.2 {ratio} Normal 1.1-1.9 [facility] Comment on above: Performed By: #### 2 [id number] ####SON [address] [place] [address] Alk Phos 68 Int._Unit/L Normal 33-110 [facility] Comment on above: Performed By: #### 2 963724 ####SON [address] [place] [address] ALT enzyme act/vol 21 Int._Unit/L Normal 7-45 [facility] Comment on above: Performed By: #### 2 684461 ####SON [address]ms[address] [place] [address] AST enzyme act/vol 17 Int._Unit/L Normal 9-39 [facility] Comment on above: Result Comment: MILD HEMOLYSIS DETECTED. The result may be falsely elevated due to hemolysis or other interferents. Clinical correlation is recommended. Repeat testing may be considered. Performed By: #### 2 166904 ####[facility] [address] [place] [address] Bili Total 0.5 mg/dL Normal 0.0-1.2 [facility] Comment on above: Performed By: #### 2 178253 ####[facility] [address] [place] [address] Calcium mass conc 9.3 mg/dL Normal 8.6-10.3 [facility] Comment on above: Performed By: #### 2 738703 ####[facility] [address] [place] [address] Chloride molar conc 103 mmol/L Normal 98-107 [facility] Comment on above: Performed By: #### 2 [id number] ####[facility] [address] [place] [address] CO2 molar conc 26.0 mmol/L Normal 21.0-32.0 [facility] Comment on above: Performed By: #### 2 786091 ####[facility] [address] [place] [address] Creatinine mass conc 0.8 mg/dL Normal 0.6-1.3 [facility] Comment on above: Performed By: #### 2 127398 ####[facility] [address] [place] [address] Globulin Calculated mass conc (S) 3.0 g/dL Normal 2.0-4.0 [facility] Comment on above: Performed By: #### 2 962717 ####[facility] [address] [place] [address] Glucose mass conc 115 mg/dL High 70-99 [facility] Comment on above: Performed By: #### 2 411783 ####[facility] [address] [place] [address] Potassium molar conc 4.5 mmol/L Normal 3.5-5.3 [facility] Comment on above: Performed By: #### 2 292117 ####SON [address]vf[address] [place] [address] Protein mass conc 7.4 g/dL Normal 6.4-8.2 [facility] Comment on above: Performed By: #### 2 604059 ####SON [address] [place] [address] Sodium molar conc 136 mmol/L Normal 136-145 [facility] Comment on above: Performed By: #### 2 148796 ####SON [address] [place] [address] Urea nitrogen mass conc 19 mg/dL Normal 6-23 [facility] Comment on above: Performed By: #### 2 636773 ####SON [address]ocbq52[address] [place] [address] Urea nitrogen/Creatinine mass ratio 23.8 ratio Normal 5.4-30.0 [facility] Comment on above: Performed By: #### 2 377508 ####SON [address]izh[address] [place] [address] Ferritinon 08-10-2018 Ferritin Lvl 67.0 ng/mL Normal 11.0-306.8 [facility] Comment on above: Performed By: #### 2 537975 ####[facility] [address] [place] [address] Ironon 08-10-2018 Iron mass conc 122 microgram/dL Normal 35-150 [facility] Comment on above: Result Comment: MILD HEMOLYSIS DETECTED. The result may be falsely elevated due to hemolysis or other interferents. Clinical correlation is recommended. Repeat testing may be considered. Performed By: #### 2 [id number] ####[facility] [address]iv[address] [place] [address] Magnesiumon 08-10-2018 Magnesium mass conc 2.1 Int._Unit/L Normal 1.6-2.4 [facility] Comment on above: Performed By: #### 2 515896 ####[facility] [address] [place] [address] Phosphoruson 08-10-2018 Phosphate mass conc 2.7 mg/dL Normal 2.5-4.9 [facility] Comment on above: Performed By: #### 2 197541 ####SON [address] [place] [id number] eGFRon 08-10-2018 eGFR AA >[address] [facility] Comment on above: Order Comment: Order added by Discern Expert. Performed By: #### [id number] ####SON [id number] [place] [address] GFR/1.73 sq M predicted among non-blacks MDRD vol rate/area (S/P/Bld) mL/min/{1.73_m2} Normal [facility] Comment on above: Order Comment: Order added by Discern Expert. Performed By: #### [id number] ####SON [id number] [place] [address] XR Knee 1 or 2 Views Lefton 08-07-2018 XR Knee 1 or 2 Views Left Exam Date/Time:08/06/2018 16:08 EDTReason for Exam:Acute pain of the left kneeReportSTUDY:XR Knee 1 or 2 Views Left; 08/06/2018 4:08 pmINDICATION:Acute pain of the left knee.COMPARISON:05/26CCESSION NUMBER(S):[id number] CLINICIAN:Autumn Kelly:2 views of the left knee including AP and lateral projections were obtained.FINDINGS:The re is no evidence of acute fracture or dislocation identified. 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 Mild joint space narrowing and small marginal osteophytes are seen in the medial and patellofemoral compartments. No suprapatellar joint effusion is present.IMPRESSION:1. No acute fracture or dislocation.2. Degenerative changes, as described above. FINAL REPORT Dictated: 08/07/2018 9:08 am Abdias CAPUTO, Conner CSigned (Electronic Signature): 08/07/2018 9:08 amSigned by: Conner Calero MD Technologist: DEMETRIA Normal [facility] Vital Signs Date Time Vital Sign Value Performing Clinician Facility 06-19-2025 13:49-0400 Body height 170.[address] Martin Keane MD Work Phone: [facility] 06-19-2025 13:49-0400 Body mass index (BMI) [Ratio] 45.7 kg/m2 Dr. Martin Keane MD Work Phone: [facility] 06-19-2025 13:49-0400 Body temperature 98.8 [degF] Dr. Martin Keane MD Work Phone: [facility] 06-19-2025 13:49-0400 Body weight 132.[address] Martin Keane MD Work Phone: [facility] 06-19-2025 13:49-0400 Diastolic blood pressure 88 mm[Hg] Dr. Martin Keane MD Work Phone: [facility] 06-19-2025 13:49-0400 Heart rate 75 /min Dr. Martin Keane MD Work Phone: [facility] 06-19-2025 13:49-0400 Respiratory rate 16 /min Dr. Martin Keane MD Work Phone: [facility] 06-19-2025 13:49-0400 SaO2% (BldA) [Mass fraction] 95 % Dr. Martin Keane MD Work Phone: [facility] 06-19-2025 13:49-0400 Systolic blood pressure 136 mm[Hg] Dr. Martin Keane MD Work Phone: [facility] 03-13-2025 15:24-0400 Body height 170.[address] Martin Keane MD Work Phone: [facility] 03-13-2025 15:24-0400 Body mass index (BMI) [Ratio] 46.3 kg/m2 Dr. Martin Keane MD Work Phone: [facility] 03-13-2025 15:24-0400 Body temperature 97.2 [degF] Dr. Martin Keane MD Work Phone: [facility] 03-13-2025 15:24-0400 Body weight 134.[address] Martin Keane MD Work Phone: [facility] 03-13-2025 15:24-0400 Diastolic blood pressure 80 mm[Hg] Dr. Martin Keane MD Work Phone: [facility] 03-13-2025 15:24-0400 Heart rate 84 /min Dr. Martin Keane MD Work Phone: [facility] 03-13-2025 15:24-0400 Respiratory rate 16 /min Dr. Martin Keane MD Work Phone: [facility] 03-13-2025 15:24-0400 SaO2% (BldA) [Mass fraction] 90 % Dr. Martin Keane MD Work Phone: [facility] 03-13-2025 15:24-0400 Systolic blood pressure 142 mm[Hg] Dr. Martin Keane MD Work Phone: [facility] 12-12-2024 10:58-0500 Body mass index (BMI) [Ratio] 48.2 kg/m2 Dr. Martin Keane MD Work Phone: [facility] 12-12-2024 10:58-0500 Body temperature 96.4 [degF] Dr. Martin Keane MD Work Phone: [facility] 12-12-2024 10:58-0500 Body weight 139.[address] Martin Keane MD Work Phone: [facility] 12-12-2024 10:58-0500 Diastolic blood pressure 86 mm[Hg] Dr. Martin Keane MD Work Phone: [facility] 12-12-2024 10:58-0500 Heart rate 75 /min Dr. Martin Keane MD Work Phone: [facility] 12-12-2024 10:58-0500 Respiratory rate 16 /min Dr. Martin Keane MD Work Phone: [facility] 12-12-2024 10:58-0500 SaO2% (BldA) [Mass fraction] 98 % Dr. Martin Keane MD Work Phone: [facility] 12-12-2024 10:58-0500 Systolic blood pressure 142 mm[Hg] Dr. Martin Keane MD Work Phone: [facility] 12-12-2023 17:53-0500 Body height 170.[address] Autumn Rosas Work Phone: [facility] 12-12-2023 17:53-0500 Body mass index (BMI) [Ratio] 47 kg/m2 Dr. Autumn Rosas Work Phone: [facility] 12-12-2023 17:53-0500 Body temperature 97.9 [degF] Dr. Autumn Rosas Work Phone: [facility] 12-12-2023 17:53-0500 Body weight 136.[address] Autumn Rosas Work Phone: [facility] 12-12-2023 17:53-0500 Diastolic blood pressure 108 mm[Hg] Dr. Autumn Rosas Work Phone: [facility] 12-12-2023 17:53-0500 Heart rate 94 /min Dr. Autumn Rosas Work Phone: [facility] 12-12-2023 17:53-0500 Respiratory rate 18 /min Dr. Autumn Rosas Work Phone: [facility] 12-12-2023 17:53-0500 SaO2% (BldA) [Mass fraction] 98 % Dr. Autumn Rosas Work Phone: [facility] 12-12-2023 17:53-0500 Systolic blood pressure 152 mm[Hg] Dr. Autumn Rosas Work Phone: [facility] 11-20-2022 11:46-0500 Body height 170.2 cm Jay Bodjanac DO Work Phone: [employer] 11-20-2022 11:46-0500 Body temperature 98.4 [degF] Jay Bodjanac DO Work Phone: [employer] 11-10-2022 13:06-0500 Diastolic blood pressure 69 mm[Hg] Jay Bodjanac DO Work Phone: [employer] 11-10-2022 13:06-0500 Heart rate 79 /min Jay Bodjanac DO Work Phone: [employer] 11-10-2022 13:06-0500 Respiratory rate 19 /min Jay Bodjanac DO Work Phone: [employer] 11-10-2022 13:06-0500 SaO2% (BldA) [Mass fraction] 99 % Jay Bodjanac DO Work Phone: [employer] 11-10-2022 13:06-0500 Systolic blood pressure 142 mm[Hg] Jay Bodjanac DO Work Phone: [employer] 11-10-2022 12:08-0500 Body height 170.2 cm Jay Bodjanac DO Work Phone: [employer] 11-10-2022 12:08-0500 Body mass index (BMI) [Ratio] 43.85 kg/m2 Jay Bodjanac DO Work Phone: [employer] 11-10-2022 12:08-0500 Body temperature 99.9 [degF] Jay Bodjanac DO Work Phone: [employer] 11-10-2022 12:08-0500 Body weight 127.01 kg Jay Bodjanac DO Work Phone: [employer] 11-06-2022 15:09-0500 Body height 170.2 cm Jay Bodjanac DO Work Phone: [employer] 11-06-2022 15:09-0500 Body mass index (BMI) [Ratio] 44.95 kg/m2 Jay Bodjanac DO Work Phone: [employer] 11-06-2022 15:09-0500 Body temperature 97 [degF] Jay Bodjanac DO Work Phone: [employer] 11-06-2022 15:09-0500 Body weight 130.18 kg Jay Bodjanac DO Work Phone: [employer] 10-02-2022 09:46-0500 Body height 170.2 cm Jay Bodjanac DO Work Phone: [employer] 10-02-2022 09:46-0500 Body mass index (BMI) [Ratio] 44.95 kg/m2 Jay Bodjanac DO Work Phone: [employer] 10-02-2022 09:46-0500 Body temperature 98.71 [degF] Jay Bodjanac DO Work Phone: [employer] 10-02-2022 09:46-0500 Body weight 130.18 kg Jay Bodjanac DO Work Phone: [employer] Encounters Encounter Date Encounter Type Care Provider Facility Start: 07-01-2025 ambulatory Efewguillermobe Olearistidese Facili ty:[facility] Start: 06-25-2025 ambulatory Efewongbe Oleghe Facili ty:[facility] Start: 06-19-2025 End: 06-19-[address] Martin Keane MD [facility] Work Phone: Start: 06-19-2025 End: 06-19-[address] Martin Keane MD Work Phone: [facility] Start: 05-27-2025 ambulatory SELF-REQUESTED MAMMOGRAPHY-CECY Facility:[facility] Start: 05-27-2025 End: 05-27-2025 Subsequent hospital visit by physician Autumn Rosas MD Work Phone: [facility] Comment on above: Arrived Start: 03-13-2025 End: 03-13-[address] Martin Keane MD [facility] Work Phone: Start: 03-13-2025 End: 03-13-[address] Martin Keane MD Work Phone: [facility] Work Phone: Start: 03-13-2025 End: 03-13-2025 ambulatory Efewongbe Olee Facility:[facility] Start: 12-12-2024 End: 12-12-[address] Martin Keane MD -[facility] Work Phone: Start: 12-12-2024 End: 12-12-2024 ambulatory Efewongbe Oleghe Facility:[facility] Start: 12-12-2024 End: 12-12-2024 ambulatory Efewlittletonbe Olee Facility:[facility] Start: 09-04-2024 End: 09-04-2024 [facility] Start: 09-04-2024 End: 09-04-2024 [facility] Start: 05-15-2024 End: 05-15-2024 [facility] Start: 05-15-2024 End: 05-15-2024 Patient encounter procedure Emory Lopez OD Work Phone: Optometry Comment on above: Hyperopia of both ey es (Primary Dx); Presbyopia Start: 05-08-2024 End: 05-08-2024 Subsequent hospital visit by physician Self-Requested Stephan Work Phone: [facility] Comment on above: Arrived Start: 05-07-2024 End: 05-07-2024 ambulatory MARTIN KEANE Facility:[facility] Start: 05-07-2024 End: 05-07-2024 Patient encounter procedure Emory Tin Jessica OD Work Phone: Optometry Comment on above: 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 Autumn Rosas Work Phone: [facility] Work Phone: Start: 01-24-2024 End: 01-24-[address] [facility] Start: 01-04-2024 End: 01-04-[address] Autumn Rosas Work Phone: [facility] Work Phone: Start: 01-04-2024 End: 01-04-[address] [facility] Start: 01-01-2024 End: 01-01-[address] Autumn Rosas Work Phone: [facility] Work Phone: Start: 01-01-2024 End: 01-01-[address] Aut[facility] Start: 12-13-2023 End: 12-13-[address] Autumn Rosas Work Phone: [facility] Work Phone: Start: 12-13-2023 End: 12-13-[address] Autumn Rosas Work Phone: [facility] Spec[facility] Work Phone: Start: 12-12-2023 End: 12-12-[address] Autumn Rosas Work Phone: [facility] Internal Medicine Work Phone: Start: 07-17-2023 End: 07-17-2023 ambulatory Stephanie Salinas SECOND CLASS WELDER Work Phone: [facility] Comment on above: Canceled (Provider/C ancelled) Start: 06-25-2023 End: 06-29-2023 ambulatory STEPHANIE J BRAD [facility] Start: 06-25-2023 End: 06-25-2023 ambulatory Stephaniemiguel a Salinas SECOND CLASS WELDER Work Phone: [facility] Comment on above: SHERIE (stress urinary incontinence, female) (Primary Dx) Start: 06-18-2023 End: 06-22-2023 ambulatory Stephanie Kumar Brad SECOND CLASS WELDER Work Phone: [facility] Comment on above: SHERIE (stress urinary incontinence, female) (Primary Dx) Start: 06-11-2023 End: 06-15-2023 [facility]ulatory [facility] Start: 06-11-2023 End: 06-11-2023 ambulatory Stephanie Salinas SECOND CLASS WELDER Work Phone: [facility] Comment on above: Urinary incontinence , unspecified type; SHERIE (stress urinary incontinence, female) Start: 06-07-2023 End: 06-07-2023 ambulatory [facility] Work Phone: Start: 06-07-2023 End: 06-07-2023 Patient encounter procedure [facility]-Rad[facility], [facility] Work Phone: Start: 05-31-2023 End: 06-01-2023 ambulatory KRISTEN CALLAHAN MD Facility:[facility] Start: 05-03-2023 End: 05-03-2023 Subsequent hospital visit by physician Autumn Rosas MD Work Phone: [facility] Comment on above: Arrived Start: 01-19-[address] Autumn Rosas Facility:[id number] Start: 11-20-2022 ambulatory [facility] Start: 11-20-2022 End: 11-20-2022 Postop follow up visit related to original px Jay Kirill SHUKLA Work Phone: [facility] Plastic Surgery Comment on above: Multiple benign nevi of face (Primary Dx) Start: 11-10-2022 End: 11-10-2022 [facility] Start: 11-10-2022 End: 11-10-2022 Subsequent hospital visit by physician Jay Roy DO Work Phone: [facility] Periop Comment on above: Multiple benign nevi of face Start: 11-06-2022 [facility] Start: 11-06-2022 End: 11-06-2022 Patient encounter procedure Jay Roy Work Phone: [facility] Plastic Surgery Comment on above: Multiple benign nevi of face (Primary Dx); Fibroepithelial polyp Start: 10-02-2022 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); Vitreous floaters of both eyes; Hyperopia of both eyes; Presbyopia Start: 06-19-2020 End: 06-20-2020 Patient encounter procedure PROVIDER NOT IN SYSTEM [facility] Start: 06-19-2020 End: 06-19-2020 Subsequent hospital visit by physician Provider Not In System [facility] Radiology External Films Comment on above: Arrived Start: 06-17-2020 Patient encounter procedure ISAIAS TORRES [facility] Start: 08-10-2018 End: 08-11-2018 Patient encounter Autumn Rosas Facility:[facility] Start: 08-06-2018 End: 08-07-2018 Patient encounter Autumn Rosas Facility:[facility] Procedures Date Procedure Procedure Detail Performing Clinician Start: 05-27-2025 Screening mammograph y bi 2-view breast inc cad Self-Requested Mammography-[facility] Work Phone: Start: 12-12-2024 Measurement of renal function Dr. Martin Keane MD Work Phone: Comment on above: GFR Calc Start: 12-12-2023 Coronavirus COVID-[address] Autumn Rosas Work Phone: Start: 06-07-2023 End: 06-07-2023 Radiologic examination of knee Start: 05-03-2023 Mammography Ayesha Leut hold PT Start: 05-02-2022 Screening mammograph y bi 2-view breast inc cad Self-Requested [facility] Work Phone: Start: 04-16-2020 Colonoscopy Emory cota II, OD Work Phone: Plan of Treatment Date Care Activity Detail Author Start: 04-02-2029 Tetanus vaccination [facility] Start: 04-02-2029 Urine microalbumin profile DTaP,Tdap,Td Vaccine (2 - Td or Tdap) [facility] Start: 05-27-2026 Screening for malignant neoplasm of breast MAMMOGRAM SCREENING DISCUSSION [facility] Start: 06-29-2025 Influenza vaccination INFLUENZA VACCINE (#1) [facility] Start: 05-08-2025 Screening for malignant neoplasm of breast Mammogram Screening [facility] Start: 03-13-2025 CBC W Auto Differential panel - Blood [facility] Start: 03-13-2025 Comprehensive metabolic 2000 panel - Serum or Plasma [facility] Start: 06-29-2024 COVID-19 VACCINE ( season) COVID-19 VACCINE ( season) [facility] Start: 06-29-2024 Influenza vaccination Influenza Vaccine (#1) [facility] Start: 05-15-2024 End: 05-15-2024 Patient encounter procedure 05/15/2024 8:00 AM EDT Office Visit [facility] [address] [place] [address] Emory Lopez II, OD [address] [place] [address] contact lens Fitting/Check Optometry Comment on above: contact lens Fitting/Check Start: 05-05-2024 End: 05-05-2025 MG Breast - bilateral Screening MAMMO SCREENING WITH ISAAC BILATERAL Imaging Routine Visit for screening mammogram Expected: 05/05/2024, Expires: 05/05/2025 [facility] Work Phone: Comment on above: Expected: 05/05/2024, Expires: Start: 05-03-2024 Screening for malignant neoplasm of breast [facility] Start: 10-29-2023 Behavioral Health Screening Behavioral Health Screening [facility] Start: 07-13-2023 End: 07-13-2023 ambulatory 07/13/2023 4:00 PM EDT Treatment [facility] [address] [place] [address] Stephanie Salinas, SECOND CLASS WELDER [address] [place] [address] Ayesha Hidalgo, ALLISON [facility] Start: 06-29-2023 COVID-19 VACCINE ( season) COVID-19 VACCINE ( season) [facility] Start: 06-29-2023 COVID-19 Vaccine ( season) COVID-19 Vaccine ( season) [facility] Start: 06-29-2023 Influenza vaccination [facility] Start: 06-25-2023 End: 06-25-2023 ambulatory 06/25/2023 4:45 PM EDT [facility] [address] [place] [address] Stephanie Salinas, SECOND CLASS WELDER [address] [place] [facility] [place] [address] Ayesha Hidalgo, PT [facility] Start: 06-18-2023 End: 06-18-2023 ambulatory 06/18/2023 9:15 AM EDT [facility] [address] [place] [address] Stephanie Salinas, SECOND CLASS WELDER [address] [place] [facility] [place] [address] Ayesha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 brace 2 sec and [...] week Duration: 4 weeks Interventions: Therapeutic Exercise (26687) and Electrical Stimulation - Unattended (01880) Rehab Potential: good Goals: Physical Therapy Ortho [...] of life. The pt would benefit from skilledPT services focused on the above listed impairments [...] medically necessary. Ayesha Hidalgo, PT State License, [id number] documented in this [id number] NotePROCEDURE: ANKLE RIGHT COMPLETE, 05/31/2023 5:18 PM EDT CLINICAL INDICATIONS: [...] 1. Calcaneal enthesopathy. 2. No acute pathology identified.[facility]07-06-[facility] History of Present illness Narrative* Vera Herrera - 05/03/2023 11:00 AM EDT Patient offered a medical roasterman for sensitive exam. Pt declined [facility] History of Present illness Narrative* Vijay Tom LPN - 11/20/2022 11:30 AM EST Chief Complaint Chief Complaint Patient presents with Post Op Visit Post op Vitals Temp 98.4 F (36.9 C) (Temporal) Ht 1.702 m (5' 7) BMI 43.85 kg/m Smoking Status Never Body [...] flank. Denies pain to sites at present. * Jay Roy DO - 11/20/2022 11:30 AM EST The surgical sites on her right upper lip and right flank are healed. The sutures are dissolvable. Pathology report discussed: Diagnosis: A.Right upper lip lesion, Excision: -Nevus B.Right flank lesion, Excision: -Nevus After one more week, she may begin to apply a scar fading compound to the surgical sites. documented in this [facility]01-13-2023 Note* Op Note - Jay Roy DO - 11/10/2022 12:58 PM EST EXCISION OF SKIN LESION (INTERMEDIATE CLOSURE) - PLASTICS PROCEDURE PERFORMED BY: Jay Roy DO PROCEDURE DATE: 11/10/2022 LOCATION: Right upper lip The patient is counseled regarding the above procedure including risks, alternatives, potential complications and benefits, and is agreeable to proceed. Witnessed informed consent is obtained. The lesion to be excised is located just above the right upper lip vermilion border. This lesion ismarked with a marking pen and prepared with Betadineophthalmic prep. The site is then injected with1% lidocaine with 1:100,000 epinepherine for a total [...] and subcutaneous tissues 0.7 cm x 1.3 cmin size. The lesion is then sent in [...] treated with Tylenol or Ibuprofen as needed. [facility]01-13-2023 Miscellaneous Notes* Op Note - Jay Roy DO - 11/10/2022 12:58 PM EST EXCISION OF SKIN LESION (INTERMEDIATE CLOSURE) - PLASTICS PROCEDURE PERFORMED BY: Jay Roy DO PROCEDURE DATE: 11/10/2022 LOCATION: Right upper lip The patient is counseled regarding the above procedure including risks, alternatives, potential complications and benefits, and is agreeable to proceed. Witnessed informed consent is obtained. The lesion to be excised is located just above the right upper lip vermilion border. This lesion ismarked with a marking pen and prepared with Betadineophthalmic prep. The site is then injected with1% lidocaine with 1:100,000 epinepherine for a total [...] and subcutaneous tissues 0.7 cm x 1.3 cmin size. The lesion is then sent in [...] treated with Tylenol or Ibuprofen as needed. * Brief Op Note - Jay Roy DO - 11/10/2022 12:55 PM EST POST OPERATIVE/PROCEDURE NOTE Lily Wayne ([id number]) SURGEON Surgeon(s) and Role: * Jay Roy DO - Primary AGRONOMY TECHNICIAN None ANESTHESIOLOGIST No anesthesia staff entered. SURGICAL STAFF Animal Rescuer: Hannah Roque RN; Farheen Horton RN Photovoltaic Solar Cell Designer: Linn Hickey PROCEDURE PERFORMED Procedure(s) (LRB): EXCISION [...] Lip lesion Permanent TISSUE SURGICAL PATHOLOGY REQUEST Jay Roy DO 11/10/2022 1243 B : B) Right Flank Permanent TISSUE SURGICAL PATHOLOGY REQUEST Jay Roy DO 11/10/2022 1249 Jay Roy DO November 10, 2022 12:55 PM documented in this [facility]01-13-2023 Hospital Discharge instructions* Discharge Instructions* Jay Roy DO - 11/10/2022 12:57 PM EST May shower. Maintain steri-strips and keep them as clean and dry as possible. Tylenol as needed forpain. Sleep on clean but old towels, as some seepage, which is normal, may occur. documented in this [facility]01-13-2023 Note* Brief Op Note - Jay Roy DO - 11/10/2022 12:55 PM EST POST OPERATIVE/PROCEDURE NOTE Lily Wayne ([id number]) SURGEON Surgeon(s) and Role: * Jay Roy DO - Primary AGRONOMY TECHNICIAN None ANESTHESIOLOGIST No anesthesia staff entered. SURGICAL STAFF Animal Rescuer: Hannah Roque RN; Farheen Horton RN Photovoltaic Solar Cell Designer: Linn Hickey PROCEDURE PERFORMED Procedure(s) (LRB): EXCISION [...] Lip lesion Permanent TISSUE SURGICAL PATHOLOGY REQUEST Jay Roy DO 11/10/2022 1243 B : B) Right Flank Permanent TISSUE SURGICAL PATHOLOGY REQUEST Jay Roy DO 11/10/2022 1249 Jay Roy DO November 10, 2022 12:55 PM [facility]01-13-2023 Nurse Surgical operation note* Farheen Horton RN - 11/10/2022 12:37 PM EST Or temp 67.2F, humidity 37% [facility]01-13-2023 Nurse Note* Farheen Horton RN - 11/10/2022 12:37 PM EST Or temp 67.2F, humidity 37% documented in this encounterC[facility] Attending History and physical note* Jay Roy DO - 11/10/2022 12:12 PM EST I have examined the patient and reviewed the previous H&P completed on date 11/06/2022 and there are no changes. Jay Roy DO, 11/10/2022, 12:12 PM. Source Note - Jay Roy DO - 11/06/2022 3:00 PM EST Plastic Surgery H & P HPI: Ms. Wayne is a 52 y.o. female. 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 Last [...] stromal fibrosis, usual type ductal hyperplasia, apocrine metaplasia,and cyst formation BLADDER SUSPENSION 2007 CHOLECYSTECTOMY 2004 OTHER SURGICAL per patient - excision benign lesion right lateral canthus TONSILLECTOMY Review of Systems: Chief Complaint Chief Complaint Patient presents with Pre-op Exam Pre-op Vitals Temp 97 F (36.1 C) (Temporal) Ht 1.702 m (5' 7) Wt 130.2 kg (287 lb) BMI 44.95 [...] Physical Examination height is 1.702 m (5' 7) and weight is 130.2 kg (287 lb). Her temporal temperature is 97 F (36.1 C). Estimated body mass index is 44.95 kg/m as calculated from the following: Height as of this encounter: 1.702 m (5' 7). Weight as of this encounter: 130.2 kg (287 lb). General: NAD, well appearing HEENT: NC/AT, CN 2-12 grossly intact, V1-V3 grossly intact, no LAD Chest: RRR, CTAB Abdomen: Soft/NT/ND, no palpable masses/hernias, no organomegaly Extremities: Neurovascularly intact This procedure has been fully reviewed with the patient and written informed consent has been obtained. [facility] [employer] Work Phone: 1(668) 415-950001-13-2023 History and physical note* Jay Roy DO - 11/10/2022 12:12 PM EST I have examined the patient and reviewed the previous H&P completed on date 11/06/2022 and there are no changes. Jay Roy DO, 11/10/2022, 12:12 PM. Source Note - Jay Roy DO - 11/06/2022 3:00 PM EST Plastic Surgery H & P HPI: Ms. Wayne is a 52 y.o. female. 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 Last [...] stromal fibrosis, usual type ductal hyperplasia, apocrine metaplasia,and cyst formation BLADDER SUSPENSION 2007 CHOLECYSTECTOMY 2004 OTHER SURGICAL per patient - excision benign lesion right lateral canthus TONSILLECTOMY Review of Systems: Chief Complaint Chief Complaint Patient presents with Pre-op Exam Pre-op Vitals Temp 97 F (36.1 C) (Temporal) Ht 1.702 m (5' 7) Wt 130.2 kg (287 lb) BMI 44.95 [...] Physical Examination height is 1.702 m (5' 7) and weight is 130.2 kg (287 lb). Her temporal temperature is 97 F (36.1 C). Estimated body mass index is 44.95 kg/m as calculated from the following: Height as of this encounter: 1.702 m (5' 7). Weight as of this encounter: 130.2 kg (287 lb). General: NAD, well appearing HEENT: NC/AT, CN 2-12 grossly intact, V1-V3 grossly intact, no LAD Chest: RRR, CTAB Abdomen: Soft/NT/ND, no palpable masses/hernias, no organomegaly Extremities: Neurovascularly intact This procedure has been fully reviewed with the patient and written informed consent has been obtained. documented in this [facility]01-09-2023 History and physical note* Jay Roy DO - 11/06/2022 3:00 PM EST Plastic Surgery H & P HPI: Ms. Wayne is a 52 y.o. female. 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 Last [...] stromal fibrosis, usual type ductal hyperplasia, apocrine metaplasia,and cyst formation BLADDER SUSPENSION 2007 CHOLECYSTECTOMY 2004 OTHER SURGICAL per patient - excision benign lesion right lateral canthus TONSILLECTOMY Review of Systems: Chief Complaint Chief Complaint Patient presents with Pre-op Exam Pre-op Vitals Temp 97 F (36.1 C) (Temporal) Ht 1.702 m (5' 7) Wt 130.2 kg (287 lb) BMI 44.95 [...] Physical Examination height is 1.702 m (5' 7) and weight is 130.2 kg (287 lb). Her temporal temperature is 97 F (36.1 C). Estimated body mass index is 44.95 kg/m as calculated from the following: Height as of this encounter: 1.702 m (5' 7). Weight as of this encounter: 130.2 kg (287 lb). General: NAD, well appearing HEENT: NC/AT, CN 2-12 grossly intact, V1-V3 grossly intact, no LAD Chest: RRR, CTAB Abdomen: Soft/NT/ND, no palpable masses/hernias, no organomegaly Extremities: Neurovascularly intact This procedure has been fully reviewed with the patient and written informed consent has been obtained. [facility] Work Phone: 1(696) 774-211901-09-2023 History and physical note* Jay Roy DO - 11/06/2022 3:00 PM EST Plastic Surgery H & P HPI: Ms. Wayne is a 52 y.o. female. 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 Last [...] stromal fibrosis, usual type ductal hyperplasia, apocrine metaplasia,and cyst formation BLADDER SUSPENSION 2007 CHOLECYSTECTOMY 2004 OTHER SURGICAL per patient - excision benign lesion right lateral canthus TONSILLECTOMY Review of Systems: Chief Complaint Chief Complaint Patient presents with Pre-op Exam Pre-op Vitals Temp 97 F (36.1 C) (Temporal) Ht 1.702 m (5' 7) Wt 130.2 kg (287 lb) BMI 44.95 [...] Physical Examination height is 1.702 m (5' 7) and weight is 130.2 kg (287 lb). Her temporal temperature is 97 F (36.1 C). Estimated body mass index is 44.95 kg/m as calculated from the following: Height as of this encounter: 1.702 m (5' 7). Weight as of this encounter: 130.2 kg (287 lb). General: NAD, well appearing HEENT: NC/AT, CN 2-12 grossly intact, V1-V3 grossly intact, no LAD Chest: RRR, CTAB Abdomen: Soft/NT/ND, no palpable masses/hernias, no organomegaly Extremities: Neurovascularly intact This procedure has been fully reviewed with the patient and written informed consent has been obtained. documented in this [facility] History of Present illness Narrative* Vijay Tom LPN - 11/06/2022 3:00 PM EST Chief Complaint Chief Complaint Patient presents with Pre-op Exam Pre-op Vitals Temp 97 F (36.1 C) (Temporal) Ht 1.702 m (5' 7) Wt 130.2 kg (287 lb) BMI 44.95 [...] face and right flank/trunk. documented in this [facility]12-05-2022 History and physical note* Jay Roy DO - 10/02/2022 9:30 AM EST Plastic Surgery H & P HPI: Ms. Wayne is a 52 y.o. female. 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 Last [...] stromal fibrosis, usual type ductal hyperplasia, apocrine metaplasia,and cyst formation BLADDER SUSPENSION 2007 CHOLECYSTECTOMY 2004 OTHER SURGICAL per patient - excision benign lesion right lateral canthus TONSILLECTOMY Review of Systems: Chief Complaint Lesion right upper lip and right hip Vitals Temp 98.7 F (37.1 C) (Temporal) Ht 1.702 m (5' 7) Wt 130.2 kg (287 lb) BMI 44.95 [...] present for at least 15 years. States thelesion has increased in size and become more raised. Also c/o of lesion on the right hip area present for more than 10 years with increase in size. States the lesion on the right upper lip can at times have irritation. Physical Examination height is 1.702 m (5' 7) and weight is 130.2 kg (287 lb). Her temporal temperature is 98.7 F (37.1C). Estimated body mass index is 44.95 kg/m as calculated from the following: Height as of this encounter: 1.702 m (5' 7). Weight as of this encounter: 130.2 kg (287 lb). General: NAD, well appearing HEENT: NC/AT, CN 2-12 grossly intact, V1-V3 grossly intact, no LAD Chest: RRR, CTAB Abdomen: Soft/NT/ND, no palpable masses/hernias, no organomegaly Extremities: Neurovascularly intact This procedure has been fully reviewed with the patient and written informed consent has been obtained. [facility]12-05-2022 History and physical note* Jay Roy DO - 10/02/2022 9:30 AM EST Plastic Surgery H & P HPI: Ms. Wayne is a 52 y.o. female. 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 Last [...] stromal fibrosis, usual type ductal hyperplasia, apocrine metaplasia,and cyst formation BLADDER SUSPENSION 2007 CHOLECYSTECTOMY 2004 OTHER SURGICAL per patient - excision benign lesion right lateral canthus TONSILLECTOMY Review of Systems: Chief Complaint Lesion right upper lip and right hip Vitals Temp 98.7 F (37.1 C) (Temporal) Ht 1.702 m (5' 7) Wt 130.2 kg (287 lb) BMI 44.95 [...] present for at least 15 years. States thelesion has increased in size and become more raised. Also c/o of lesion on the right hip area present for more than 10 years with increase in size. States the lesion on the right upper lip can at times have irritation. Physical Examination height is 1.702 m (5' 7) and weight is 130.2 kg (287 lb). Her temporal temperature is 98.7 F (37.1C). Estimated body mass index is 44.95 kg/m as calculated from the following: Height as of this encounter: 1.702 m (5' 7). Weight as of this encounter: 130.2 kg (287 lb). General: NAD, well appearing HEENT: NC/AT, CN 2-12 grossly intact, V1-V3 grossly intact, no LAD Chest: RRR, CTAB Abdomen: Soft/NT/ND, no palpable masses/hernias, no organomegaly Extremities: Neurovascularly intact This procedure has been fully reviewed with the patient and written informed consent has been obtained. documented in this [facility] History of Present illness Narrative* Vijay Tom LPN - 10/02/2022 9:30 AM EST Chief Complaint Lesion right upper lip and right hip Vitals Temp 98.7 F (37.1 C) (Temporal) Ht 1.702 m (5' 7) Wt 130.2 kg (287 lb) BMI 44.95 [...] present for at least 15 years. States thelesion has increased in size and become more raised. Also c/o of lesion on the right hip area present for more than 10 years with increase in size. States the lesion on the right upper lip can at times have irritation. * Jay Roy DO - 10/02/2022 9:30 AM EST Plastic and Reconstructive Surgery Consultation Referring Provider: Dr. Rosas Reason for Consultation: HPI: Ms. Wayne is a 52 y.o. female. She presents [...] (37.1 C) (Temporal) Ht 1.702 m (5' 7) Wt 130.2 kg (287 lb) BMI 44.95 [...] present for at least 15 years. States thelesion has increased in size and become more raised. Also c/o of lesion on the right hip area present for more than 10 years with increase in size. States the lesion on the right upper lip can at times have irritation. Physical Examination height is 1.702 m (5' 7) and weight is 130.2 kg (287 lb). Her temporal temperature is 98.7 F (37.1C). Estimated body mass index is 44.95 kg/m as calculated from the following: Height as of this encounter: 1.702 m (5' 7). Weight as of this encounter: 130.2 kg [...] the insurance approval process. documented in this encounterC[facility] History of Present illness Narrative* Tanner Diamond - 05/02/2022 2:20 PM EDT Patient offered a medical roasterman for sensitive exam. Pt declined documented in this encounterU [facility] Instructions* Patient Instructions* Emory Lopez II, OD - 04/25/2022 3:20 PM [...] by others. I have seen and examined Lily Gutiérrez Tone. I have discussed the case and the management of this patient's care with the Resident/Fellow, if applicable. I also have reviewed and agree with the assessment and plan as stated above and agree withall of its relevant components. Emory Lopez II, OD [facility] History of Present illness Narrative* Emory Lopez II, OD - 04/25/2022 3:19 PM EDT Assessment and Plan D23.121 Benign [...] by others. I have seen and examined Lily Gutiérrez Tone. I have discussed the case and the management of this patient's care with the Resident/Fellow, if applicable. I also have reviewed and agree with the assessment and plan as stated above and agree withall of its relevant components. 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 Presbyopia documented in this encounter [facility]* Diagnosis Visit for screening mammogram Other screening mammogram [facility] Diagnosis 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 Unspecified hypertrophic and atrophic condition of skin [facility]* Diagnosis 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 Unspecified hypertrophic and atrophic condition of skin [facility]* Diagnosis Multiple benign nevi of face Fibroepithelial polyp Unspecified hypertrophic and atrophic condition of skin [facility]* Diagnosis Multiple benign nevi of face- Primary [facility]* Diagnosis Visit for screening mammogram Other screening mammogram [facility]* Diagnosis Urinary incontinence, unspecified type SHERIE (stress urinary incontinence, female) documented [facility] noteNo assessment information availableWLutheran Hospital Work Phone: Evaluation note* Diagnosis SHERIE (stress urinary incontinence, female)- Primary documented in this encounter [facility] note* Diagnosis SHERIE (stress urinary incontinence, female)- Primary documented in this encounter [facility] note* Diagnosis Onset Date Resolution Status Hypersomnolence acute URI (upper respiratory infection) acute Anxiety and depression chron ic Hypertension chronic Hypothyroidism [facility] Work Phone: Evaluation note* Diagnosis 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 Presbyopia Hyperopia of both eyes Regular astigmatism, bilateral [facility]* Diagnosis Visit for screening mammogram Other screening mammogram [facility]* Diagnosis Hyperopia of both eyes- Primary Presbyopia documented in [facility]* Diagnosis Visit for screening mammogram Other screening mammogram [facility] (narrative)No reason for referral information availableMer[facility] Work Phone: Reason for visit Narrative* Auth/Cert Specialty Diagnoses / Procedures Referred By Ede baxter Referred To Contact Diagnoses Multiple benign nevi of face 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 [D22.30] Fibroepithelial polyp [L91.8] Procedures SC EXC SKIN BENIG 0.6-1CM FACE,FACIAL SC LAYR CLOS WND FACE,FACIAL </= 2.5CM SC EXC SKIN BENIG 1.1-2CM TRUNK,ARM,LEG SC LAYR CLOS WND TRUNK,ARM,LEG </= 2.5CM EXCISION LESION SKIN EAR EYELID FACE LIP NOSE REPAIR WOUND INTERMEDIATE EAR EYELID FACE LIP NOSE EXCISION LESION SKIN TRUNK REPAIR WOUND INTERMEDIATE AXILLAE TRUNK Jay Roy DO [address] [place] [address] Referral ID Status Reason Start Date Expiration Date Visits Re quested Visits Authorized [id number] 10/02/2022 1 1 [facility]* Radiology (Routine) - Pending Review Specialty Diagnoses / Procedures Referred By Ede baxter Referred To Contact Diagnoses Visit for screening mammogram Procedures MAMMO SCREENING WITH ISAAC BILATERAL Mammography-Cecy Self-Requested [address] [place] [address] Phone: tel: fax: Referral ID Status Reason Start Date Expiration Date V isits Requested Visits Authorized [id number] Pending Review 04/10/2025 05/05/2026 1 1 [facility] Summary Purpose Family History No Family History Records FoundNo Family History Records FoundNo Family History Records FoundNo Family History Records FoundNo Family History Records FoundNo Family History Records FoundNo Family History Records FoundNo Family History Records FoundNo Family History Records FoundNo Family History Records FoundNo Family History Records Found Advance Directives No Advanced Directives Records FoundDocuments on File Type Date Recorded 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 Advance Directives and Living Will Documents on File Type Date Recorded 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 Advance Directive(s) 03/31/2020 6:17 PM Reason for Referral Specialty Diagnoses / Procedures Referred By Ede baxter Referred To Contact Diagnoses Visit for screening mammogram Procedures MAMMO SCREENING WITH ISAAC BILATERAL Mammography-Cecy, Self-Requested [address] [place] [address] Referral ID Status Reason Start Date Expiration Date V isits Requested Visits Authorized [id number] New Request 05/02/2023 05/26/2024 1 1 Referral ID Status Reason Start Date Expiration Date V isits Requested Visits Authorized [id number] New Request 05/05/2024 05/30/2025 1 1 Chief Complaint and Reason for Visit Chief Complaint PAIN IN BOTH KNEES Chief Complaint EST NEW PT - PPW SEN T Reason for Visit Hypersomnolence URI (upper respiratory infection) Anxiety and depression Hypertension Hypothyroidism Chief Complaint EST NEW PT - PPW SEN T HYPER SOMNOLENCE INT LABS Reason for Visit Hypersomnolence URI (upper respiratory infection) Anxiety and depression Hypertension Hypothyroidism Chief Complaint EST NEW PT - PPW SEN T HYPER SOMNOLENCE INT LABS hypersomnia Reason for Visit Hypersomnolence URI (upper respiratory infection) Anxiety and depression Hypertension Hypothyroidism Chief Complaint Admit Date 3 M FU December 12, 2024 10:51am 3 M FU March 13, 2025 3:21p m Reason for Visit Admit Date Anxiety and depression December 12 10:51am Borderline type 2 diabetes mellitus [facility] 2024 10:51am Dermatitis December 12, 2024 10:51am Hypertension December 12, 2024 10:51am Hypothyroidism December 12, 2024 10:51am Metabolic syndrome December 12, 2024 10:51am Obesity December 12, 2024 10:51am Obstructive sleep apnea December 12 025 10:51am Venous insufficiency of both lower extre mities December 12, 2024 10:51am Reason for Visit Admit Date Anxiety and depression December 12 10:51am Borderline type 2 diabetes mellitus [facility] 2024 10:51am Dermatitis December 12, 2024 10:51am Hypertension December 12, 2024 10:51am Hypothyroidism December 12, 2024 10:51am Metabolic syndrome December 12, 2024 10:51am Obesity December 12, 2024 10:51am Obstructive sleep apnea December 12 025 10:51am Venous insufficiency of both lower extre mities December 12, 2024 10:51am Anxiety and depression March 13, 2025 3: 21pm Borderline type 2 diabetes mellitus March 13, 2025 3:21pm Hypertension March 13, 2025 3:21p m Hypothyroidism March 13, 2025 3:21p m Metabolic syndrome March 13, 2025 3:21p m Obesity March 13, 2025 3:21p m Obstructive sleep apnea March 13, 2025 3 :21pm Chief Complaint Admit Date 3 M FU March 13, 2025 3:21p m preventative visit June 19, 2025 1: 38pm Reason for Visit Admit Date Anxiety and depression March 13, 2025 3: 21pm Borderline type 2 diabetes mellitus March 13, 2025 3:21pm Hypertension March 13, 2025 3:21p m Hypothyroidism March 13, 2025 3:21p m Metabolic syndrome March 13, 2025 3:21p m Obesity March 13, 2025 3:21p m Obstructive sleep apnea March 13, 2025 3 :21pm Additional Source Comments INFORMATION SOURCE (unrecogn ized section and content) DATE CREATED AUTHOR 09/12/2018 [facility] DATE CREATED AUTHOR AUTHOR'S ORGANIZ ATION 04/14/2020 [facility] DATE CREATED AUTHOR AUTHOR'S ORGANIZ ATION 06/18/2020 [facility] DATE CREATED AUTHOR AUTHOR'S ORGANIZ ATION 06/20/2020 [facility] DATE CREATED AUTHOR AUTHOR'S ORGANIZ ATION 12/19/2022 [facility] DATE CREATED AUTHOR AUTHOR'S ORGANIZ ATION 01/22/2023 [facility] DATE CREATED AUTHOR AUTHOR'S ORGANIZ ATION 06/04/2023 [facility] DATE CREATED AUTHOR AUTHOR'S ORGANIZ ATION 06/30/2023 [facility] DATE CREATED AUTHOR AUTHOR'S ORGANIZ ATION 05/18/2024 [facility] DATE CREATED AUTHOR AUTHOR'S ORGANIZ ATION 05/29/[address] [facility] DATE CREATED AUTHOR AUTHOR'S ORGANIZ ATION 06/27/2025 [facility] Source Comments (unrecognize d section and content) In the event this informatio n is protected by the Federal Confidentiality of Alcohol and Drug Abuse Patient Records regulations: The Federal rules restrict any use of the information to criminally investigate or prosecute any alcohol or drug abuse patient.[facility] Hospital[facility] the event this information is protected by the Federal Confidentiality of Alcohol and Drug Abuse Patient Records regulations: The Federal rules restrict any use of the information to criminally investigate or prosecute any alcohol or drug abuse patient.[facility] Hospital[facility] the event this information is protected by the Federal Confidentiality of Alcohol and Drug Abuse Patient Records regulations: The Federal rules restrict any use of the information to criminally investigate or prosecute any alcohol or drug abuse patient.[facility] Reason for Visit (unrecogniz ed section and content) Reason Comments Neoplasm, Eyebrow/lid Follow Up Blurred Vision Both Eyes Worst with prol onged near work on computer Specialty Diagnoses / Procedures Referred By Ede baxter Referred To Contact Diagnoses Visit for screening mammogram Procedures MAMMO SCREENING WITH ISAAC BILATERAL MAMMO SCREENING BILATERAL Mammography-Cecy Self-Requested [address] [place] [address] Referral ID Status Reason Start Date Expiration Date V isits Requested Visits Authorized [id number] New Request 04/21/2022 05/16/2023 1 1 Reason Comments New Patient Lesion of left upper lip and left hip Specialty Diagnoses / Procedures Referred By Ede baxter Referred To Contact Plastic Surgery Diagnoses Neoplasm of uncertain behavior of skin of face Autumn Rosas MD [address] [place] [address] Jay Roy DO [address] [place] [id number] Referral ID Status Reason Start Date Expiration Date V isits Requested Visits Authorized [id number] Pending Review 09/28/2022 10/23/2023 1 1 Reason Comments Pre-op Exam Pre-op Reason Comments Post Op Visit Post op Specialty Diagnoses / Procedures Referred By Ede baxter Referred To Contact Diagnoses Visit for screening mammogram Procedures MAMMO SCREENING WITH ISAAC BILATERAL Mammography-Cecy, Self-Requested [address] [place] [address] Referral ID Status Reason Start Date Expiration Date V isits Requested Visits Authorized [id number] New Request 05/02/2023 05/26/2024 1 1 Reason Comments Pelvic Floor Specialty Diagnoses / Procedures Referred By Contac t Referred To Contact Rehabilitation Diagnoses Urinary incontinence, unspecified type Stephanie Salinas, SECOND CLASS WELDER [address] [place] [address] [facility] [address] [place] [phone] Referral ID Status Reason Start Date Expiration Date V isits Requested Visits Authorized [id number] Authorized 05/15/2023 05/14/2024 5 5 Specialty Diagnoses / Procedures Referred By Contac t Referred To Contact Rehabilitation Diagnoses Urinary incontinence, unspecified type Stephanie Salinas, SECOND CLASS WELDER [address] [place] [address] [facility] [address] [place] [phone] Reason Comments Yearly Exam Referral ID Status Reason Start Date Expiration Date V isits Requested Visits Authorized [id number] New Request 05/05/2024 05/30/2025 1 1 Reason Comments Contact Lens Follow Up Care Teams (unrecognized sec tion and content) Finishing Wire Sawyer Relationship Specialty Start Date End Date Autumn Rosas PCP - General Family Practice 12/11/13 Mansi Parikh [address] [place] [address] Pediatrics 01/24/12 Finishing Wire Sawyer Relationship Specialty Start Date End Date Shila Quintanilla, RN Registered Nurse 07/02/20 Finishing [employer] Sawyer Relationship Specialty Start Date End Date Autumn Rosas MD [address] [place] [address] PCP - General Family Medicine 10/02/22 Shila Quintanilla, RN Registered Nurse 07/02/20 Finishing Wire Sawyer Relationship Specialty Start Date End Date Autumn Rosas MD [address] [place] [address] PCP - General Family Medicine 10/02/22 Shila Quintanilla, RN Registered Nurse 07/02/20 Finishing Wire Sawyer Relationship Specialty Start Date End Date Autumn Rosas MD [address] [place] [address] PCP - General Family Medicine 10/02/22 Shila Quintanilla, RN Registered Nurse 07/02/20 Finishing Wire Sawyer Relationship Specialty Start Date End Date Autumn Rosas MD PCP - General Family Medicine 10/02/22 Shila Quintanilla, RN Registered Nurse 07/02/20 [facility] Other [address] [place] [address] Obstetrics & Gynecology 05/02/23 Finishing Wire Sawyer Relationship Specialty Start Date End Date Autumn Rosas MD PCP - General 02/12/12 Jenaro Zimmerman CNP [address] [place] [address] Referring Physician Nurse Practitioner 06/17/20 Team Status: Active Member Role Status Dates Dr. Autumn Rosas MD Primary Care Provider Active Team Status: Inactive Member Role Status Dates Dr. Autumn Rosas MD Primary Care Provider, [facility] Provider Active Finishing Wire Sawyer Relationship Specialty Start Date End Date Autumn Rosas MD [address] [place] [address] PCP - General 02/12/12 Jenaro Zimmerman, SECOND CLASS WELDER [address] [place] [address] Referring Physician Nurse Practitioner 06/17/20 Finishing Wire Sawyer Relationship Specialty Start Date End Date Autumn Rosas MD [address] [place] [address] PCP - General 02/12/12 Jenaro Zimmerman CNP [address] [place] [address] Referring Physician Nurse Practitioner 06/17/20 Finishing Wire Sawyer Relationship Specialty Start Date End Date Autumn Rosas MD [address] [place] [address] PCP - General 02/12/12 Jenaro Zimmerman CNP [address] [place] [address] Referring Physician Nurse Practitioner 06/17/20 Team Status: Active Member Role Status Dates Dr. Martin Keane MD Primary Care Provider Active Team Status: Inactive Member Role Status Dates Dr. Autumn Rosas MD Primary Care Provider, Referrin g Provider Active Dr. Martin Keane MD Attending Provider Active Team Status: Inactive Member Role Status Dates Dr. Martin Keane MD Primary Care Provider, Atten ding Provider Active Team Status: Inactive Member Role Status Dates Dr. Martin Keane MD Primary Care P rovider, Attending Provider, Referring Provider Active Team Status: Active Member Role Status Dates Dr. Martin Keane MD Primary Care P rovidoreen, Attending Provider, Referring Provider Active Finishing Wire Sawyer Relationship Specialty Start Date End Date Martin Keane MD [address] [facility] [place] [address] PCP - General Internal Medicine 05/07/24 Mansi Parikh MD [address] [place] [address] Pediatrics 01/24/12 Finishing Wire Sawyer Relationship Specialty Start Date End Date Autumn Rosas MD PCP - General Family Medicine 10/02/22 Shila Quintanilla, RN Registered Nurse 07/02/20 [facility] Other [address] [place] [address] Obstetrics & Gynecology 05/02/23 Finishing Wire Sawyer Relationship Specialty Start Date End Date Martin Keane MD [address] [facility] [place] [address] PCP - General Internal Medicine 05/07/24 Mansi Parikh MD [address] [place] [address] Pediatrics 01/24/12 Team Status: Inactive Member Role Status Dates Dr. Martin Keane MD Primary Care Provider Active Start: December 12, 2024 End: December 12, 2024 Dr. Martin Keane MD Attending Provider Active Start: December 12, 2024 End: December 12, 2024 Dr. Martin Keane MD Referring Provider Active Start: December 12, 2024 End: December 12, 2024 Team Status: Inactive Member Role Status Dates Dr. Martin Keane MD Primary Care Provider Active Start: March 13, 2025 End: March 13, 2025 Dr. Martin Keane MD Attending Provider Active Start: March 13, 2025 End: March 13, 2025 Dr. Martin Keane MD Referring Provider Active Start: March 13, 2025 End: March 13, 2025 Team Status: Active Member Role Status Dates Dr. Martin Keane MD Primary Care Provider Active Start: March 13, 2025 Dr. Martin Keane MD Attending Provider Active Start: March 13, 2025 Dr. Martin Keane MD Referring Provider Active Start: March 13, 2025 Finishing Wire Sawyer Relationship Specialty Start Date End Date Autumn Rosas MD PCP - General Family Medicine 10/02/22 Shila Quintanilla RN Registered Nurse 07/02/20 [facility] Other [address] [place] [address] Obstetrics & Gynecology 05/02/23 Team Status: Active Member Role/Relationship Status Dates Dr. Martin Keane MD Primary Care Provider Active Team Status: Inactive Member Role/Relationship Status Dates Dr. Martin Keane MD Primary Care Provider Active Start: March 13, 2025 End: March 13, 2025 Dr. Martin Keane MD Attending Provider Active Start: March 13, 2025 End: March 13, 2025 Dr. Martin Keane MD Referring Provider Active Start: March 13, 2025 End: March 13, 2025 Team Status: Inactive Member Role/Relationship Status Dates Dr. Martin Keane MD Primary Care Provider Active Start: March 13, 2025 End: March 13, 2025 Dr. Martin Keane MD Attending Provider Active Start: March 13, 2025 End: March 13, 2025 Dr. Martin Keane MD Referring Provider Active Start: March 13, 2025 End: March 13, 2025 Team Status: Inactive Member Role/Relationship Status Dates Dr. Martin Keane MD Primary Care Provider Active Start: June 19, 2025 End: June 19, 2025 Dr. Martin Keane MD Attending Provider Active Start: June 19, 2025 End: June 19, 2025 Dr. Martin Keane MD Referring Provider Active Start: June 19, 2025 End: June 19, 2025 PRN Active and Recently Administ ered Medications (unrecognized section and content) Medication Order 11/08/2022 11/09/2022 11/10/2022 lidocaine-epinephrine [id number] injection NEEDED, Starting on Sun11/10/22 at 1252, Until Sun11/10/22 at 1654, Intra-op/Intra-Proc 1252 (Given - Provid er: Jay Roy, DO - Comment: right upper thigh) Goals (unrecognized section and content) Goals may be documented in a n alternate sectionGoals may be documented in an alternate sectionGoals may be documented in an alternate sectionGoals may be documented in an alternate sectionGoals may be documented in an alternate sectionGoals may be documented in an alternate sectionGoals may be documented in an alternate sectionGoals may be documented in an alternate section FOR RECORDS PERTAINING TO PATIENTS WHO ARE [...] BE BASED ON THE PRIMARY CLINICAL RECORDS. [facility]. provides no warranty or guarantee of the accuracy or completeness of information in this document.
== END | disposition home or self-care (01) ==
PROVIDERS: PCP Internal Medicine; Referring Provider Internal Medicine; Visit Provider Internal Medicine
DX: I10 Essential (primary) hypertension (principal); M25.512 Pain in left shoulder
CPT/HCPCS: 73030; 93005

== ENCOUNTER 2025-08-05 13:00 | Outpatient (RCR) | payer OTHER, SELFPAY ==
--- NOTE | 2025-07-09 16:55 | HP.PTEVAL_ITS ---
Patient's Visit Information Visit Information Visit Information: LILY WAYNE is a 55 year old F referred to Physical Therapy by Dr. Pradip Keane MD with a diagnosis of L shoulder pain. Date of Evaluation: 07/09/25 Physical Therapist: Rafael Agarwal, PT, ATC Visit Plan Frequency: 2x /Week Duration: 4-6 Weeks Plan: L shoulder rotator cuff strengthening, scap stab ex's, UBE, and HEP Subjective Subjective: Pt reports she has had L shoulder pain for approximately one year. Pt notes she had a recent x-ray which revealed no significant findings. Pt reports reaching out to her side and donning her lani increases her pain. Pt notes she is R hand dominant. Pt reports she has been attending a gym for working out which she has a computer trainer that is helping her. Pt notes shoulder flexion ex's tends to increase her L shoulder pain. Pt reports occasional sleep difficulty secondary to pain. Pt notes most of her pain is located on the lateral aspect of her L arm near the deltoid insertion. Pt reports she has tingling only in her hands, which she attributes to carpal tunnel. 0/10 pain at rest, 6/10 pain at worst. Pain L shoulder: Pain Intensity (Out of 10): 0 Pain Intensity Range: 6 Objective Objective: Neuro: B UE sensation is WNL to light touch. Palpation: Pt is very sore along the distribution of the supraspinatus tendon. No obvious deformity noted this date. ROM: R shoulder flex= 165, abd= 165, IR= , ER= 65 degrees; L shoulder flex= 145, abd= 115, IR= , ER= 50 degrees MMT: R shoulder flex= 19, abd= 30, IR= 27, ER= 21 #F; L shoulder flex= 9, abd= 0, IR= 18, ER= 12 #F Special testing: Pos empty can, pos Neers Balance/Special Test Scores Quick DASH Score: 31.8175 Goals Goal 1:: Decrease L shoulder pain x 50% to aid with sleep Goal Time Frame: 4-6 Weeks Goal 2:: Increase L shoulder strength to equal 90% of R shoulder strength to aid with IADL's Goal Time Frame: 4-6 Weeks Goal 3:: Increase L shoulder flex and abd ROM x 20 degrees to aid with overhead reaching Goal Time Frame: 4-6 Weeks Goal 4:: I with HEP Goal Time Frame: 4-6 Weeks Rehabilitation Potential Physical Therapy Diagnosis: Pt has L shoulder pain, weakness, and limited ROM secondary to L shoulder rotator cuff insufficiency Rehabilitation Potential: Good Anticipated Interventions Patient/Client Instruction: Educate patient on: Condition and Plan of Care For the Purpose of:: To improve self management Therapeutic Exercise to Include: Strength training, Endurance training, Body mechanics, Postural training, Active ROM and Scapular Strength/Stabilization For the Purpose of:: To decrease pain, To increase ROM and To improve muscle performance and motor function Cryotherapy (ice pack, ice massage): Yes For the Purpose of:: To decrease pain Text: Thank you for the opportunity to evaluate your patient. For Medicare and Medicare HMO plans, please review the plan of care and approve it. It will need to be FAXED BACK to us at [phone] for Medicare purposes. For Medicare only, by signing this I certify the plan of care. Please let me know if there are questions or concerns regarding this plan of care. Physician Signature: Date:
--- NOTE | 2025-08-05 14:02 | HP.PTDCSUM ---
Discharge Summary D/C summary: It has been my pleasure to treat LILY WAYNE referred by Dr. Pradip Keane MD, with the diagnosis of L shoulder pain for a total of 9 visit(s). Discharge Date: Please see the following information for a summary of their discharge status. Subjective Subjective: No significant change at this time Pain L shoulder: Pain Intensity (Out of 10): 2 Overall Improvement % Improvement: 10 Objective Objective/Function: L shoulder pain ranges from 2-7/10 L shoulder MMT: flex= 4, abd= 4, IR= 13, ER= 13 #F L shoulder ROM: flex= 120, abd= 90 degrees Pt has regressed with strength and ROM at this time. Goals Goal 1:: Decrease L shoulder pain x 50% to aid with sleep Goal 2:: Increase L shoulder strength to equal 90% of R shoulder strength to aid with IADL's Goal 3:: Increase L shoulder flex and abd ROM x 20 degrees to aid with overhead reaching Goal 4:: I with HEP Plan Plan: Discontinue, and return to doctor D/C Information d/c sentence: If there are questions or concerns regarding this patient's physical therapy, please feel free to call me at [phone]. Thank you for the referral of this patient. Sincerely, Rafael Agarwal, PT, ATC Balance/Gait/Functional tests Balance/Special Test Scores Quick DASH Score: 61.3625 Improvement % Improvement: 10
== END 2025-08-05 19:00 | disposition home or self-care (01) ==
LOC: PT 13:00
PROVIDERS: PCP Internal Medicine; Referring Provider Internal Medicine; Visit Provider Internal Medicine
DX: M25.512 Pain in left shoulder (principal)
CPT/HCPCS: 97110; 97161; 97530

== ENCOUNTER → 2025-08-27 | Outpatient (CLI) | payer OTHER, SELFPAY ==
--- NOTE | 2025-08-27 15:40 | MRI_ITS ---
PROCEDURE: MRI/Upper Ext Joint Only(Routine)
== END | disposition home or self-care (01) ==
PROVIDERS: PCP Internal Medicine; Referring Provider Internal Medicine; Visit Provider Internal Medicine
DX: M25.512 Pain in left shoulder (principal)
CPT/HCPCS: 73221